=== PATIENT | female | born 1995 | race African-American/Black ===

== ENCOUNTER 2019-10-31 01:45 | Observation (INO) | payer MEDICAID, SELFPAY ==
[2019-10-31] VITALS (14 sets, daily range): BP systolic 106–168; BP diastolic 57–102; PULSE 62–111; RESP 16–28; TEMP 36.4–37.2; O2SAT 97–100; BMI 33.5
--- NOTE | ~2019-10-31 | XR_ITS ---
EXAMINATION: XR chest 1V portable DATE: 10/31/2019 04:58 INDICATION: Diabetic ketoacidosis. Leukocytosis. TECHNIQUE: A single frontal view of the chest was obtained. COMPARISON: Chest single view 01/17/2019, CT abdomen and pelvis 05/19/2018 FINDINGS: The chest demonstrates clear lungs without pneumonia, pleural effusion, or pneumothorax. Th e heart size is normal. IMPRESSION: 1. No acute cardiopulmonary disease. Reviewed, dictated and finalized at location A.
--- NOTE | ~2019-10-31 | CT_ITS ---
EXAMINATION: CT abdomen pelvis wo con DATE: 11/01/2019 14:20 INDICATION: Epigastric abdominal pain. Nausea and vomiting. TECHNIQUE: Computed tomography (CT) of the abdomen and pelvis was performed without intravenous contr ast. Automated exposure control and iterative reconstruction technique were employed. The dose-length product was 467.70 mGy-cm. COMPARISON: CT abdomen and pelvis 05/19/2018 FINDINGS: The visualized portions of the lung bases demonstrate mild atelectasis in left lower lobe. No pleural effusion. The heart size is normal. No pericardial effusion. The liver and spleen are norm al. There are changes of cholecystectomy. The pancreas, adrenal glands, and kidneys are normal. There is no urolithiasis. There are no dilated loops of bowel. The appendix is normal. There are no pathol ogically enlarged lymph nodes. There is no free intraperitoneal fluid. The bones are unremarkable. IMPRESSION: 1. No etiology for the patient's symptoms. Reviewed, dictated and finalized at location A.
--- NOTE | 2019-10-31 01:54 | ED.NAVMDI ---
HPI - Nausea/Vomiting/Diarrhea General Chief complaint: Nausea/Vomiting/Diarrhea Stated complaint: n/v Time Seen by Provider: 10/31/19 01:47 Source: RN notes reviewed History of Present Illness HPI Narrative: Patient presents emergency department from home for nausea and vomiting. Patient states symptoms began earlier today. States she is had numerous episodes of nausea and vomiting. Patient with a history of diabetes and states she is missed her insulin for the past 2 days. Has any fevers or chills chest pain shortness of breath abdominal pain or any other symptoms. Related Data Allergies Allergy/AdvReac Type Severity Reaction Status Date / Time banana Allergy Unknown makes Verified 08/30/18 16:46 mouth swell, couldn't breath Review of Systems Review of Systems: Narrative: Gen.: Denies fevers or chills ENT: Denies congestion Respiratory: Denies shortness of breath or cough CV: Denies chest pain or palpitations GI: See HPI denies burning, urgency, frequency or hematuria Musculoskeletal: Denies back pain or muscle pain Neuro: Denies numbness, tingling, weakness or focal weakness Skin: Denies rash Except as documented, all other systems reviewed and negative [facility] Past Medical History Medical History Asthma Diabetes mellitus Social History Social History Smoking status: Current every day smoker Exam Narrative: Exam Narrative: APPEARANCE: No acute distress, nontoxic, resting in bed EYES: EOMI HEENT: Normocephalic, atraumatic, oromucosa dry RESPIRATORY: No respiratory distress Clear to auscultation bilaterally with no rhonchi wheezing or rales. CARDIOVASCULAR: Regular rate and rhythm without murmurs rubs or gallops. ABDOMINAL: Soft, nontender, nondistended, no rebound or guarding MUSCULOSKELETAl: Moves all extremities. No clubbing, cyanosis or edema. NEURO: Awake and alert. Following commands, speech normal, no focal deficits SKIN:: Warm, dry. No rashes lesions or abrasions PSYCHIATRIC: Normal affect/mood, Course Course Emergency Course: Discussed Dr. Robertson presentation work-up. At this time recommends admission to the ICU with patient on insulin drip Discussed Dr. Massey presentation work-up. Agrees with admission to the ICU Discussed with patient and family results of workup and diagnosis. Discussed need for admission. Patient and family understand and agree to current treatment plan Vital Signs Vital signs: Vital Signs Temperature 97.6 F 10/31/19 01:46 Pulse Rate 70 10/31/19 01:46 Respiratory Rate 18 10/31/19 01:46 Blood Pressure 138/82 10/31/19 01:46 Pulse Oximetry 100 10/31/19 01:46 Temperature 97.6 F 10/31/19 01:46 Pulse Rate 79 10/31/19 04:00 Respiratory Rate 21 H 10/31/19 04:00 Blood Pressure 166/91 H 10/31/19 04:00 Pulse Oximetry 97 10/31/19 04:00 MDM - Nausea/Vomiting/Diarrhea Lab Data Result diagrams: 10/31/19 03:32 10/31/19 03:32 Labs: Lab Results 10/31/19 10/31/19 10/31/19 Range/Units 02:03 02:13 03:32 WBC 12.4 H (4.5-10.0) K/mm3 RBC 4.54 (4.2-5.4) M/mm3 Hgb 11.3 L (12.0-15.0) g/dL Hct 35.0 L (37.0-47.0) % MCV 77.1 L (80-100) fl MCH 24.9 L (26-34) pg MCHC 32.3 (32-36) g/dl RDW 16.0 H (11.5-14.5) % Plt Count 433 H (150-375) k/mm3 MPV 10.1 (7.4-10.4) fl Immature Gran % (Auto) 0.3 (0-0.5) % Neut % (Auto) 89.6 H (45.5-73.1) % Lymph % (Auto) 7.3 L (18.3-44.2) % [place] % (Auto) 2.7 (2.6-8.5) % Eos % (Auto) 0.0 (0-4.4) % Baso % (Auto) 0.1 L (0.2-1.2) % Lymph # (Auto) 0.91 (0.9-3.2) K/mm3 [place] # (Auto) 0.3 (0.1-0.6) K/mm3 Eos # (Auto) 0.0 (0-0.3) K/mm3 Baso # (Auto) 0.0 (0.0-0.1) K/mm3 Abs Immat Gran (auto) 0.04 H (0.00-0.031) K/mm3 Absolute Neuts (auto) 11.1 H (1.3-6.7) K/mm3 Abs
[2019-10-31 02:05] LABS: Glucose Point of Care 323 (65-105)
[2019-10-31] MEDS: ONDANSETRON INJ 4 MG/2 ML VIAL IV PUSH (02:14)
[2019-10-31] MEDS: SODIUM CHLORIDE 0.9% IV 1,000 ML 999 ML IV CONT ×3 (02:14→04:29)
--- NOTE | 2019-10-31 02:54 | PC.NURSE ---
Called phlebotomy about drawing pts blood
[2019-10-31 03:39] LABS: Basophils Percent Auto 0.1 % (0.2-1.2); Hemoglobin 11.3 g/dL (12.0-15.0); Immature Granulocyte Absolute 0.04 K/mm3 (0.00-0.031); Immature Granulocyte Percent A 0.3 % (0-0.5); Lymphocytes Absolute Auto 0.91 K/mm3 (0.9-3.2); Lymphocytes Percent Auto 7.3 % (18.3-44.2); Mean Corpuscular HGB Conc 32.3 g/dl (32-36); Mean Corpuscular Hemoglobin 24.9 pg (26-34); Mean Corpuscular Volume 77.1 fl (80-100); Mean Platelet Volume 10.1 fl (7.4-10.4); Monocytes Absolute Auto 0.3 K/mm3 (0.1-0.6); Monocytes Percent Auto 2.7 % (2.6-8.5); Neutrophils Absolute Auto 11.1 K/mm3 (1.3-6.7); Neutrophils Percent Auto 89.6 % (45.5-73.1); Platelet Count Result 433 k/mm3 (150-375); Red Blood Count 4.54 M/mm3 (4.2-5.4); White Blood Count 12.4 K/mm3 (4.5-10.0)
[2019-10-31] MEDS: PROMETHAZINE HCL 25 MG/ML AMPUL 12.5 MG IV PUSH (03:40)
[2019-10-31 03:43] LABS: Add Urine Microscopic? YES; Appearance Urine Clear (Clear); Bilirubin Urine Negative (Negative); Blood Urine Negative (Negative); Glucose Urine UA 3+ mg/dL (Negative); Ketones Urine 2+ mg/dL (Negative); Leukocyte Esterase Ur Negative LEU/UL (Negative); Nitrate Urine Negative (Negative); Protein Urine 1+ mg/dL (Negative); RBC Urine 0-2 /hpf (0-2); Squamous Epithelial Cell Urine Rare /hpf (Few); Urobilinogen Urine Negative mg/dL (<2.0); WBC Urine 0-3 /hpf
[2019-10-31 03:44] LABS: Color Urine Light Yellow (Yellow); Specific Grav Ur 1.032 (1.001-1.035)
--- NOTE | 2019-10-31 03:44 | PC.NURSE ---
pt c/o of increasing nausea, MD notified, meds given.
[2019-10-31 03:52] LABS: Alanine Aminotransferase 15 U/L (4-35); Albumin Level 4.5 g/dL (3.5-5.1); Alkaline Phosphatase 102 U/L (38-126); Aspartate Amino Transferase 23 U/L (14-36); Bilirubin,Total 0.5 mg/dL (0.2-1.3); Blood Urea Nitrogen 9 mg/dL (7-17); Calcium 9.3 mg/dL (8.4-10.2); Carbon Dioxide 19 mmol/L (22-30); Chloride 101 mmol/L (98-107); Estimated CRCL calculation 148 ml/min; Estimated Glomerular Filt Rate > 60; Glucose 300 mg/dL (65-105); Lipase 113 U/L (23-300); Magnesium 1.5 mg/dL (1.6-2.3); Phosphorus 3.8 mg/dL (2.5-4.5); Potassium 3.6 mmol/L (3.4-5.0); Sodium 137 mmol/L (137-145)
[2019-10-31 03:55] LABS: Beta-Hydroxybutyrate/Acetoacetate 2.35 mmol/L (0.02-0.27)
[2019-10-31 04:04] LABS: Alveolar/Arterial O2 Gradient 31.7 mmHg; Base Excess ABG -5.6 mEq/l (+/-2.0); Device ROOM AIR; Fractional Inspired Oxygen 21 %; HCO3 ABG 18.4 mEq/l (22.0-26.0); Modified Allen's Test Pass; Oxygen Content ABG 15.1 %vol (16.0-22.0); Oxyhemoglobin 93.9 % THb (90.0-100.0); PCO2 ABG 31.2 mmHg (35.0-45.0); PO2 ABG 80.7 mmHg (80.0-100.0); PO2 FiO2 Ratio Arterial Blood 3.84 %; Site Drawn RIGHT RADIAL; Total Hemoglobin 11.4 g/dL (12.0-18.0); pH ABG 7.388 (7.350-7.450)
--- NOTE | 2019-10-31 04:16 | ECG_ITS ---
Measurements Intervals [place] Rate: 82 P: 67 CO: 141 QRS: 75 QRSD: 82 T: 47 QT: 408 QTc: 477 Interpretive Statements SINUS RHYTHM WITH MARKED SINUS ARRHYTHMIA BASELINE ARTIFACT- I, II, V3 BORDERLINE ECG Electronically Signed On 10-31-2019 7:37:57 CDT by Jacob Nicholas D.O.
[2019-10-31] MEDS: MAGNESIUM SULF 2 GM/WATER 50ML 2 GM/50 ML BAG IVPB (04:28)
--- NOTE | 2019-10-31 04:35 | PM.IMHP ---
H&P: HPI History of Present Illness Chief complaint: Nausea and vomiting+ Narrative: This is a 24 year old Diabetic female who presented to the hospital with nausea and vomiting since yesterday. The patient reports running out of her insulin two days ago. She denies any fevers, chills, cough, shortness of breath, chest pain, abdominal pain, dysuria, hematuria, diarrhea or rectal bleeding. The patient was evaluated in the ER this morning and found to be in mild DKA with an elevated anion gap, hyperglycemia, and postive serum ketones. She has been started on IV insulin, given 2 liters of NS, and [employer], Dr. Massey has been consulted. The patient has no other complaints. Review of Systems Review of Systems: All systems reviewed & are unremarkable except as noted in HPI and below PMFSH Past Medical History Medical History Asthma Diabetes mellitus Social History Social History Smoking status: Never smoker Alcohol intake: current Drinks per week: 4 Substance use: current Substance use type: marijuana Gender identity (if verbalized by the patient): Female Sexual Orientation (if Verbalized by the Patient): Straight or Heterosexual Spiritual care concerns: No Comments Past Surgical and Family medical history is reviewed and unremarkable. Meds Home Medications and Allergies Home Medications Medication Instructions Recorded Confirmed Type insulin lispro [Humalog U-100 6 unit SUBCUT TIDWMEAL 10/31/19 10/31/19 History Insulin] Lantus U-100 Insulin 30 unit SUBCUT HS #0 11/03/19 10/31/19 Rx Allergies Allergy/AdvReac Type Severity Reaction Status Date / Time banana Allergy Unknown makes Verified 08/30/18 16:46 mouth swell, couldn't breath Vital Signs Vital Signs - 24 hr 10/31/19 01:46 10/31/19 04:00 Temperature 36.4 C Pulse Rate 70 79 Respiratory Rate 18 21 H Blood Pressure 138/82 166/91 H Pulse Oximetry 100 97 Exam Const: General: cooperative, no acute distress, alert, awake and other (dehydrated+ ) Nutritional Appearance: well nourished Orientation/consciousness: patient oriented x3 HENMT: Head: normal to inspection General nose exam: Normal external nose present Face and sinus: normal facial exam Mouth: Yes Normal oral and palatal mucosa present and Yes dry mucous membranes Eyes: Pupils: Equal, round and reactive pupils present EOM: EOMs intact bilaterally Neck: Neck: supple and no JVD Thyroid: thyroid normal Lymphatic: lymphadenopathy not noted Resp: Effort & Inspection: normal respiratory effort Auscultation: clear to auscultation bilaterally Cardio: Rate: regular rate Rhythm: abnormal rhythm irregularly irregular Heart sounds: no murmurs GI: Inspection: normal to inspection Auscultation: normal bowel sounds Skin: General skin exam: normal color and no rashes or lesions noted Neuro: General: patient oriented x3 Cranial nerves: Yes CN's II-XII intact bilaterally and Yes Equal, round and reactive pupils present Speech: normal speech Motor exam (neuro): 5/5 motor strength present throughout Sensory Exam: normal sensation Extrem: General: normal to inspection and no edema Psych: Mental Status: mental status grossly normal Affect: normal affect H&P: Results Labs Labs: Short CBC 10/31/19 Range/Units 03:32 WBC 12.4 H (4.5-10.0) K/mm3 Hgb 11.3 L (12.0-15.0) g/dL Hct 35.0 L (37.0-47.0) % Plt Count 433 H (150-375) k/mm3 BMP 10/31/19 03:32 Sodium 137 Potassium 3.6 Chloride 101 Carbon Dioxide 19 L BUN 9 Creatinine 0.50 L Glucose 300 H Calcium 9.3 Liver Function 10/31/19 Range/Units 03:32 Total Bilirubin 0.5 (0.2-1.3) mg/dL AST 23 (14-36) U/L ALT 15 (4-35) U/L Alkaline Phosphatase 102 (38-126) U/L Albumin 4.5 (3.5-5.1) g/dL Urine 10/31/19
[2019-10-31 04:58] LABS: Glucose Point of Care 339 (65-105)
--- NOTE | 2019-10-31 05:21 | ADMIMU ---
This patient, Marianne Fofana, was admitted to ICU status, and placed in Intensive Care Unit-9 on 10/31/19 at 0500. Patient/family oriented to hospital policies and general routines including ID bracelet, bed and alarms, visiting hours, pain management, procedures, bathroom and other care routines, personal items, smoking policy, room service/diet, and visiting hours. Pt refuses to have valuables verified, states she knows what is in her purse and asks that we not go through it. Presence of anything but shirt, shoes, and purse NOT verified. Information on how to activate the Rapid Response Team has been discussed. Patient/Family are encouraged to report perceived risks to care and to ask questions if they do not understand what they are told or what they should do.
[2019-10-31] MEDS: INSULIN HUMAN REGULAR (*BKC) 100 UNITS in SODIUM CHLORIDE 0.9% IV 99 ML IV CONT (06:10)
[2019-10-31] MEDS: SODIUM CHLORIDE 0.9% IV 1,000 ML 150 ML IV CONT (06:13)
[2019-10-31 06:17] LABS: Glucose Point of Care 282 (65-105)
[2019-10-31 07:44] LABS: Blood Urea Nitrogen 9 mg/dL (7-17); Calcium 8.4 mg/dL (8.4-10.2); Carbon Dioxide 18 mmol/L (22-30); Chloride 105 mmol/L (98-107); Estimated CRCL calculation 149 ml/min; Estimated Glomerular Filt Rate > 60; Glucose 274 mg/dL (65-105); Potassium 3.5 mmol/L (3.4-5.0); Sodium 134 mmol/L (137-145)
[2019-10-31 07:50] LABS: Hemoglobin A1C 11.6 % (<5.7)
[2019-10-31 08:31] LABS: Glucose Point of Care 216 (65-105)
[2019-10-31 08:31] LABS: Glucose Point of Care 270 (65-105)
--- NOTE | 2019-10-31 09:32 | WPDCNINT ---
Assessment and Plan Assessment and plan (1) DKA (diabetic ketoacidoses): Qualifiers: Diabetes mellitus complication detail: without coma Diabetes mellitus type: type 1 Qualified Code(s): E10.10 - Type 1 diabetes mellitus with ketoacidosis without coma Code(s): E11.10 - Type 2 diabetes mellitus with ketoacidosis without coma Status: Acute Assessment and Plan: Patient with known type 1 diabetes on insulin at home. Presented with nausea, vomiting, diarrhea x1 day. She has been out of her insulin for the last 2 days prior -to admission. -patient started on insulin infusion of to be given IV fluids -1 L IV fluid bolus given this morning -will transition patient to long-acting insulin sliding scale insulin once anion gap closes -hemoglobin A1c 11.6 this admission (2) Nausea and vomiting: Qualifiers: Vomiting Intractability: non-intractable Vomiting type: unspecified Qualified Code(s): R11.2 - Nausea with vomiting, unspecified Code(s): R11.2 - Nausea with vomiting, unspecified Status: Acute Assessment and Plan: Nausea and vomiting likely related to DKA -has resolved -Continue monitor (3) Hypomagnesemia: Code(s): E83.42 - Hypomagnesemia Status: Acute Assessment and Plan: Magnesium was repleted (4) Asthma: Qualifiers: Asthma severity: unspecified severity Asthma persistence: unspecified Asthma complication type: unspecified Qualified Code(s): J45.909 - Unspecified asthma, uncomplicated Code(s): J45.909 - Unspecified asthma, uncomplicated Status: Chronic Assessment and Plan: Bronchodilators p.r.n. (5) Leukocytosis: Qualifiers: Leukocytosis type: unspecified Qualified Code(s): D72.829 - Elevated white blood cell count, unspecified Code(s): D72.829 - Elevated white blood cell count, unspecified Status: Acute Assessment and Plan: Likely related to stress from DKA -UA was unremarkable -chest x-ray with no acute cardiopulmonary disease Additional Plan Discussed with patient updated her with her condition and plan of care. Patient has been admitted to the ICU previously with DKA and is aware of the treatment plan Code status: Full code Critical care time spent: 38 minutes Due to a high probability of clinically significant, life threatening deterioration, the patient required my highest level of preparedness to intervene emergently and I personally spent this critical care time directly and personally managing the patient. This critical care time included obtaining a history; examining the patient; pulse oximetry; ordering and review of studies; arranging urgent treatment with development of a management plan; evaluation of patient's response to treatment; frequent reassessment; and discussions with other providers. It was exclusive of separately billable procedures and treating other patients and teaching time. Please see Assessment and Plan section and the rest of the note for further information on patient assessment and treatment [employer] Consult Note Consult date: 10/31/19 Time Seen: 07:11 Reason for consult: Diabetic ketoacidosis, nausea, vomiting, diarrhea HPI: Marianne Fofana is a 24 year old female with history asthma, insulin-dependent diabetes presented to the ED in the early hours of 10/31/2019 with complains of nausea, vomiting, diarrhea x1 day. Patient stated that she ran out of insulin 2 days prior to admission. In the ER patient was found to be in DKA with elevated anion gap, hyperglycemia, elevated beta hydroxybutyrate and positive serum ketones. Patient was given 2 L IV fluid bolus in the ED and started on insulin infusion per DKA protocol and transferred to the ICU for further management Patient seen examined this morning. Patient awake, alert, oriented. Patient denies any nausea, vomiting, abdominal pain. Patient is tired and sleepy. Patient received 2 L of IV fluids
[2019-10-31] MEDS: LACTATED RINGERS 1,000 ML 999 ML IV CONT (09:42)
[2019-10-31 09:50] LABS: Glucose Point of Care 192 (65-105)
[2019-10-31 10:47] LABS: Glucose Point of Care 105 (65-105)
[2019-10-31] MEDS: KCL 20 MEQ/D5/0.45% SOD CHL 1,000 ML 150 ML IV CONT (10:49)
[2019-10-31 11:44] LABS: Glucose Point of Care 143 (65-105)
[2019-10-31 12:15] LABS: Blood Urea Nitrogen 9 mg/dL (7-17); Calcium 7.9 mg/dL (8.4-10.2); Carbon Dioxide 16 mmol/L (22-30); Chloride 110 mmol/L (98-107); Estimated CRCL calculation 149 ml/min; Estimated Glomerular Filt Rate > 60; Glucose 134 mg/dL (65-105); Potassium 3.6 mmol/L (3.4-5.0); Sodium 135 mmol/L (137-145)
[2019-10-31] MEDS: INSULIN GLARGINE (*BKC) 100 UNITS/ML 26 UNITS SUB-Q (13:14)
[2019-10-31 15:42] LABS: Glucose Point of Care 196 (65-105)
[2019-10-31] MEDS: INSULIN ASPART (*BKC) 100 UNITS/ML 6 UNITS SUB-Q (15:43)
--- NOTE | 2019-10-31 18:36 | PM.IMPN ---
Progress Note: A&P Assessment and Plan (1) DKA (diabetic ketoacidoses): Qualifiers: Diabetes mellitus complication detail: without coma Diabetes mellitus type: type 1 Qualified Code(s): E10.10 - Type 1 diabetes mellitus with ketoacidosis without coma Code(s): E11.10 - Type 2 diabetes mellitus with ketoacidosis without coma Status: Acute Assessment and Plan: Secondary to nonadherence to medical therapy. Patient was admitted to the ICU and started on DKA protocol. Anion gap has closed. She has been transitioned to subcu insulin. Patient still with metabolic acidosis possibly related to her GI symptoms. Educated about the benefits of compliance. (2) Diabetes mellitus: Code(s): E11.9 - Type 2 diabetes mellitus without complications Status: Acute Assessment and Plan: A1c 11.6. The patient was educated about the benefits of being compliant with monitoring. She has been restarted on her Lantus and Humalog. Continue to monitor glucose and adjust medications accordingly. (3) Hypomagnesemia: Code(s): E83.42 - Hypomagnesemia Status: Acute Assessment and Plan: Magnesium slightly low on admission. Magnesium has been replaced. Repeat level in the morning. (4) Nausea and vomiting: Qualifiers: Vomiting Intractability: non-intractable Vomiting type: unspecified Qualified Code(s): R11.2 - Nausea with vomiting, unspecified Code(s): R11.2 - Nausea with vomiting, unspecified Status: Acute Assessment and Plan: Likely secondary to acute metabolic acidosis from DKA. Symptoms have resolved. Tolerating oral intake. Continue to follow. (5) Leukocytosis: Qualifiers: Leukocytosis type: unspecified Qualified Code(s): D72.829 - Elevated white blood cell count, unspecified Code(s): D72.829 - Elevated white blood cell count, unspecified Status: Acute Assessment and Plan: Likely secondary to acute DKA. Chest x-ray clear. UA not consistent with UTI. Repeat white count in the morning. (6) Normocytic anemia: Code(s): D64.9 - Anemia, unspecified Status: Chronic Assessment and Plan: Hemoglobin 11.3. Similar values when compared to blood work from December. Continue to monitor. (7) Asthma: Qualifiers: Asthma complication type: unspecified Asthma persistence: unspecified Asthma severity: unspecified severity Qualified Code(s): J45.909 - Unspecified asthma, uncomplicated Code(s): J45.909 - Unspecified asthma, uncomplicated Status: Chronic Assessment and Plan: Lungs are clear. Continue to monitor. Subjective Date/time seen: 10/31/19 18:36 Interval history: 24yo female with DM here for n/v and found to have DKA. Date of service 10/31/2019: No further nausea or vomiting. No abdominal pain. No chest pain. She does not check her sugars at home regularly. Eating normally here. Denies any numbness or tingling in her feet. Exam Narrative: Exam Narrative: AF 98.6 130/81 98 16 99% ra Gen - NARD Chest - CTA bilaterally, nml RR CV - RRR S1/S2; telemetry showing no significant dysrhythmia Abd - Soft, NT/ND, Positive BS Ext - No pedal edema. 2+ DP pulses bilaterally. Psych -subdued. Odd affect. Skin -mildly diaphoretic Objective Data Vital Signs Vital Signs: Vital Signs - 24 hr 10/31/19 01:46 10/31/19 04:00 10/31/19 05:19 Temperature 97.6 F 97.8 F Pulse Rate 70 79 62 Respiratory Rate 18 21 H 18 Blood Pressure 138/82 166/91 H 168/91 H Pulse Oximetry 100 97 99 10/31/19 05:28 10/31/19 05:33 10/31/19 06:00 Temperature 98.6 F Pulse Rate 70 72 94 Respiratory Rate 20 28 H 24 H Blood Pressure 151/102 H 114/64 Pulse Oximetry 99 99 100 10/31/19 08:00 10/31/19 10:00 10/31/19 12:00 Temperature 98.4 F 98.8 F Pulse Rate 111 H 100 97 Respiratory Rate 16 16 16 Blood Pressure 109/57 L 106/57 L 118/70 Pulse Oximetry
--- NOTE | 2019-10-31 21:19 | PC.NURSE ---
This patient, Marianne Fofana, was transferred to [[id number] ] on 10/31/19 at 2119. Personal belongings sent with patient. Belongings list checked and signed with receiving [ ]. Report given to [Abigail VILLASENOR ]. Appropriate documentation sent with patient.
[2019-10-31 22:20] LABS: Glucose Point of Care 307 (65-105)
--- NOTE | 2019-10-31 22:41 | PC.NURSE ---
This patient, Marianne Fofana, was received from [ICU-9] on 10/31/19 at 2114. Personal belongings list checked and signed. Patient/family oriented to unit policies and routines
[2019-11-01 05:55] VITALS: BP 142/96; PULSE 88; RESP 18; TEMP 36.6; O2SAT 100
[2019-11-01] MEDS: ONDANSETRON INJ 4 MG/2 ML VIAL IV PUSH ×2 (06:34→20:22)
[2019-11-01 08:17] LABS: Glucose Point of Care 257 (65-105)
[2019-11-01 08:37] LABS: Glucose Point of Care 295 (65-105)
[2019-11-01] MEDS: INSULIN ASPART (*BKC) 100 UNITS/ML 6 UNITS SUB-Q ×3 (08:43→18:20)
[2019-11-01] MEDS: INSULIN GLARGINE (*BKC) 100 UNITS/ML 26 UNITS SUB-Q (08:44)
[2019-11-01] MEDS: PROMETHAZINE HCL 25 MG/ML AMPUL IM (09:04)
[2019-11-01 09:18] LABS: Basophils Percent Auto 0.2 % (0.2-1.2); Eosinophils Percent Auto 0.2 % (0-4.4); Hemoglobin 10.7 g/dL (12.0-15.0); Immature Granulocyte Absolute 0.06 K/mm3 (0.00-0.031); Immature Granulocyte Percent A 0.5 % (0-0.5); Lymphocytes Absolute Auto 1.76 K/mm3 (0.9-3.2); Lymphocytes Percent Auto 14.1 % (18.3-44.2); Mean Corpuscular HGB Conc 32.4 g/dl (32-36); Mean Corpuscular Hemoglobin 24.8 pg (26-34); Mean Corpuscular Volume 76.6 fl (80-100); Mean Platelet Volume 10.1 fl (7.4-10.4); Monocytes Absolute Auto 0.5 K/mm3 (0.1-0.6); Monocytes Percent Auto 4.2 % (2.6-8.5); Neutrophils Absolute Auto 10.1 K/mm3 (1.3-6.7); Neutrophils Percent Auto 80.8 % (45.5-73.1); Platelet Count Result 396 k/mm3 (150-375); Red Blood Count 4.31 M/mm3 (4.2-5.4); Red Cell Distribution Width 15.8 % (11.5-14.5); White Blood Count 12.5 K/mm3 (4.5-10.0)
[2019-11-01 09:30] LABS: Blood Urea Nitrogen 9 mg/dL (7-17); Calcium 8.9 mg/dL (8.4-10.2); Carbon Dioxide 20 mmol/L (22-30); Chloride 102 mmol/L (98-107); Estimated CRCL calculation 152 ml/min; Estimated Glomerular Filt Rate > 60; Glucose 309 mg/dL (65-105); Magnesium 1.6 mg/dL (1.6-2.3); Phosphorus 2.6 mg/dL (2.5-4.5); Potassium 3.6 mmol/L (3.4-5.0); Sodium 133 mmol/L (137-145)
[2019-11-01 11:46] LABS: Glucose Point of Care 254 (65-105)
--- NOTE | 2019-11-01 12:15 | PM.IMPN ---
Progress Note: A&P Assessment and Plan (1) DKA (diabetic ketoacidoses): Qualifiers: Diabetes mellitus complication detail: without coma Diabetes mellitus type: type 1 Qualified Code(s): E10.10 - Type 1 diabetes mellitus with ketoacidosis without coma Code(s): E11.10 - Type 2 diabetes mellitus with ketoacidosis without coma Status: Acute Assessment and Plan: Secondary to nonadherence to medical therapy. Patient was admitted to the ICU and started on DKA protocol. Anion gap has closed. She has been transitioned to subcu insulin. Patient still with metabolic acidosis but improved today. Educated about the benefits of compliance. (2) Diabetes mellitus: Code(s): E11.9 - Type 2 diabetes mellitus without complications Status: Acute Assessment and Plan: A1c 11.6. The patient was educated about the benefits of being compliant with monitoring. She has been restarted on her Lantus and Humalog. Will advance Lantus today. Continue to monitor glucose and adjust medications accordingly. (3) Hypomagnesemia: Code(s): E83.42 - Hypomagnesemia Status: Acute Assessment and Plan: Magnesium slightly low on admission. Magnesium was replaced. Repeat level 1.6. Replace Mag again. (4) Nausea and vomiting: Qualifiers: Vomiting Intractability: non-intractable Vomiting type: unspecified Qualified Code(s): R11.2 - Nausea with vomiting, unspecified Code(s): R11.2 - Nausea with vomiting, unspecified Status: Acute Assessment and Plan: Likely secondary to acute metabolic acidosis from DKA and symptoms have resolved. This morning, patient had recurrent nausea and vomiting. Consider gastroparesis or gastroenteritis or psychogenic. Bicarb is better and no AG so doubt DKA. WBC still elevated but only mildly so. Will check CT A/P. Check lipase and LFTs. Add PPI. IV fluids. Clear liquids. (5) Leukocytosis: Qualifiers: Leukocytosis type: unspecified Qualified Code(s): D72.829 - Elevated white blood cell count, unspecified Code(s): D72.829 - Elevated white blood cell count, unspecified Status: Acute Assessment and Plan: Likely secondary to acute DKA. Chest x-ray clear. UA not consistent with UTI. Repeat white count essentially unchanged. Could be stress response. As above. (6) Normocytic anemia: Code(s): D64.9 - Anemia, unspecified Status: Chronic Assessment and Plan: Hemoglobin 10-11 range. Similar values when compared to blood work from December. Continue to monitor. (7) Asthma: Qualifiers: Asthma severity: unspecified severity Asthma persistence: unspecified Asthma complication type: unspecified Qualified Code(s): J45.909 - Unspecified asthma, uncomplicated Code(s): J45.909 - Unspecified asthma, uncomplicated Status: Chronic Assessment and Plan: Lungs remain clear. Continue to monitor. Subjective Date/time seen: 11/01/19 12:15 Interval history: 24yo female with DM here for n/v and found to have DKA. Date of service 11/01/2019: Patietn awoke thsi morning and developed recurrent nausea or vomiting. No diarrhea. No shortness of breath. She is having abdominal pain. She has not been having abdominal pain with eating or after eating prior to this admission. She has early satiety that comes and goes. She cannot provide details on how often this happens. Exam Narrative: Exam Narrative: AF 98.6 142/96 88 18 100% Gen - NARD lying flat in bed. In my presence, patient drinks water with a short time later having episode of nausea and vomiting of clear emesis. Some indication of self induced emesis. Chest - CTA bilaterally, nml RR CV - RRR S1/S2 Abd - Soft, nondistended. Some guarding. Hypoactive bowel sounds Ext - No pedal edema. 2+ DP pulses bilaterally. Psych - odd affect Skin -mildly diaphoretic Objective Data
[2019-11-01 13:14] LABS: Alanine Aminotransferase 12 U/L (4-35); Alkaline Phosphatase 79 U/L (38-126); Aspartate Amino Transferase 21 U/L (14-36); Bilirubin,Total 0.3 mg/dL (0.2-1.3); Lipase 179 U/L (23-300)
[2019-11-01 14:00] VITALS: PULSE 63; RESP 18; TEMP 36.1; O2SAT 100
[2019-11-01] MEDS: SODIUM CHLORIDE 0.9% IV 1,000 ML 100 ML IV CONT (15:41)
[2019-11-01] MEDS: MAGNESIUM SULF 2 GM/WATER 50ML 2 GM/50 ML BAG IVPB (15:46)
[2019-11-01] MEDS: PANTOPRAZOLE SODIUM IV 40 MG VIAL IV PUSH ×2 (15:50→20:22)
[2019-11-01 16:00] VITALS: BP 181/93
[2019-11-01 18:14] LABS: Glucose Point of Care 164 (65-105)
[2019-11-01 20:27] LABS: Glucose Point of Care 109 (65-105)
[2019-11-01 22:00] VITALS: BP 137/101; PULSE 73; RESP 18; TEMP 36.7; O2SAT 100
[2019-11-01 22:41] VITALS: BP 118/76
[2019-11-02] MEDS: SODIUM CHLORIDE 0.9% IV 1,000 ML 100 ML IV CONT (04:19)
[2019-11-02 06:00] VITALS: BP 115/67; PULSE 85; RESP 18; TEMP 36.9; O2SAT 100
[2019-11-02 06:18] LABS: Basophils Percent Auto 0.2 % (0.2-1.2); Eosinophils Percent Auto 0.2 % (0-4.4); Hematocrit 31.6 % (37.0-47.0); Hemoglobin 10.3 g/dL (12.0-15.0); Immature Granulocyte Absolute 0.02 K/mm3 (0.00-0.031); Immature Granulocyte Percent A 0.2 % (0-0.5); Lymphocytes Absolute Auto 2.42 K/mm3 (0.9-3.2); Lymphocytes Percent Auto 24.8 % (18.3-44.2); Mean Corpuscular HGB Conc 32.6 g/dl (32-36); Mean Corpuscular Hemoglobin 24.9 pg (26-34); Mean Corpuscular Volume 76.3 fl (80-100); Monocytes Absolute Auto 0.9 K/mm3 (0.1-0.6); Monocytes Percent Auto 8.8 % (2.6-8.5); Neutrophils Absolute Auto 6.4 K/mm3 (1.3-6.7); Neutrophils Percent Auto 65.8 % (45.5-73.1); Platelet Count Result 405 k/mm3 (150-375); Red Blood Count 4.14 M/mm3 (4.2-5.4); Red Cell Distribution Width 15.8 % (11.5-14.5); White Blood Count 9.7 K/mm3 (4.5-10.0)
[2019-11-02 06:44] LABS: Alanine Aminotransferase 9 U/L (4-35); Albumin Level 3.8 g/dL (3.5-5.1); Alkaline Phosphatase 68 U/L (38-126); Aspartate Amino Transferase 16 U/L (14-36); Bilirubin,Total 0.4 mg/dL (0.2-1.3); Blood Urea Nitrogen 5 mg/dL (7-17); Calcium 8.7 mg/dL (8.4-10.2); Carbon Dioxide 24 mmol/L (22-30); Chloride 102 mmol/L (98-107); Estimated CRCL calculation 129 ml/min; Estimated Glomerular Filt Rate > 60; Glucose 144 mg/dL (65-105); Potassium 2.7 mmol/L (3.4-5.0); Sodium 134 mmol/L (137-145)
[2019-11-02] MEDS: ONDANSETRON INJ 4 MG/2 ML VIAL IV PUSH ×2 (07:59→22:00)
[2019-11-02 09:09] LABS: Glucose Point of Care 143 (65-105)
[2019-11-02] MEDS: INSULIN GLARGINE (*BKC) 100 UNITS/ML 35 UNITS SUB-Q (09:14)
[2019-11-02] MEDS: INSULIN ASPART (*BKC) 100 UNITS/ML 6 UNITS SUB-Q ×3 (09:14→17:56)
[2019-11-02] MEDS: PANTOPRAZOLE SODIUM IV 40 MG VIAL IV PUSH ×2 (09:16→21:27)
[2019-11-02 14:00] VITALS: BP 159/98; PULSE 80; RESP 22; TEMP 37.2; O2SAT 100
[2019-11-02 16:44] LABS: Glucose Point of Care 153 (65-105)
--- NOTE | 2019-11-02 16:51 | PM.IMPN ---
Progress Note: A&P Assessment and Plan (1) DKA (diabetic ketoacidoses): Qualifiers: Diabetes mellitus complication detail: without coma Diabetes mellitus type: type 1 Qualified Code(s): E10.10 - Type 1 diabetes mellitus with ketoacidosis without coma Code(s): E11.10 - Type 2 diabetes mellitus with ketoacidosis without coma Status: Acute Assessment and Plan: Secondary to nonadherence to medical therapy. Patient was admitted to the ICU and started on DKA protocol. Anion gap has closed. She has been transitioned to subcu insulin. Patient's metabolic acidosis eventually resolved. Educated about the benefits of compliance. (2) Diabetes mellitus: Code(s): E11.9 - Type 2 diabetes mellitus without complications Status: Acute Assessment and Plan: A1c 11.6. The patient was educated about the benefits of being compliant with monitoring. She has been restarted on her Lantus and Humalog. Continue to monitor glucose and adjust medications accordingly. (3) Hypomagnesemia: Code(s): E83.42 - Hypomagnesemia Status: Acute Assessment and Plan: Magnesium slightly low on admission. Magnesium was replaced. Repeat level 2 (4) Nausea and vomiting: Qualifiers: Vomiting Intractability: non-intractable Vomiting type: unspecified Qualified Code(s): R11.2 - Nausea with vomiting, unspecified Code(s): R11.2 - Nausea with vomiting, unspecified Status: Acute Assessment and Plan: Likely secondary to acute metabolic acidosis from DKA and symptoms have resolved. Yesterday morning, patient had recurrent nausea and vomiting. CT the abdomen and pelvis showed no acute findings. Lipase was normal. LFTs were normal. Symptoms are improved today but still within nausea and vomiting. Continue the Protonix. Add Reglan. (5) Leukocytosis: Qualifiers: Leukocytosis type: unspecified Qualified Code(s): D72.829 - Elevated white blood cell count, unspecified Code(s): D72.829 - Elevated white blood cell count, unspecified Status: Acute Assessment and Plan: Likely secondary to acute DKA. Chest x-ray clear. UA not consistent with UTI. Could be stress response. Repeat white count normal now. Follow periodically. (6) Normocytic anemia: Code(s): D64.9 - Anemia, unspecified Status: Chronic Assessment and Plan: Hemoglobin 10-11 range and stable. Similar values when compared to blood work from December. Continue to monitor. (7) Asthma: Qualifiers: Asthma severity: unspecified severity Asthma persistence: unspecified Asthma complication type: unspecified Qualified Code(s): J45.909 - Unspecified asthma, uncomplicated Code(s): J45.909 - Unspecified asthma, uncomplicated Status: Chronic Assessment and Plan: Lungs remain clear. Continue to monitor. Subjective Date/time seen: 11/02/19 16:51 Interval history: 24yo female with DM here for n/v and found to have DKA. Date of service 11/02/2019: Patient toelrating clear liquids and feels much better. No further nausea. She slept well. Diet was advanced and she had episode again of n/v. Exam Narrative: Exam Narrative: AF 98.9 159/98 80 22 100% Gen - NARD Chest - CTA bilaterally, nml RR CV - RRR S1/S2 Abd - Soft, NT/ND, +BS Ext - No pedal edema. 2+ DP pulses bilaterally. Psych - odd affect Skin - warm and dry Objective Data Vital Signs Vital Signs: Vital Signs - 24 hr 11/01/19 22:00 11/01/19 22:41 11/02/19 06:00 Temperature 98.1 F 98.4 F Pulse Rate 73 85 Respiratory Rate 18 18 Blood Pressure 137/101 H 118/76 115/67 Pulse Oximetry 100 100 11/02/19 14:00 Temperature 98.9 F Pulse Rate 80 Respiratory Rate 22 H Blood Pressure 159/98 H Pulse Oximetry 100 Intake/Output Intake/Output: Intake & Output 10/30/19 10/31/19 11/01/19 11/02/19 23:59 23:59 23:59 23:59 Inta
[2019-11-02] MEDS: METOCLOPRAMIDE HCL INJ 10 MG/2 ML VIAL 5 MG IV PUSH ×2 (17:58→23:33)
[2019-11-02 18:09] LABS: Glucose Point of Care 127 (65-105)
[2019-11-02 21:34] LABS: Glucose Point of Care 89 (65-105)
[2019-11-02 22:00] VITALS: BP 122/75; PULSE 70; RESP 16; TEMP 36.4; O2SAT 100
--- NOTE | 2019-11-02 22:58 | ECG_ITS ---
Measurements Intervals [place] Rate: 75 P: 62 RI: 112 QRS: 62 QRSD: 88 T: 39 QT: 404 QTc: 453 Interpretive Statements SINUS RHYTHM WITH MARKED SINUS ARRHYTHMIA WITH SHORT RI INTERVAL BORDERLINE ST-T WAVE ABNORMALITY- INFERIOR LEADS BORDERLINE ECG Electronically Signed On 11-03-2019 8:04:32 CDT by Jacob Nicholas D.O.
[2019-11-02 23:06] VITALS: BP 178/112; PULSE 105; RESP 24; O2SAT 100
[2019-11-02] MEDS: PROMETHAZINE HCL 25 MG/ML AMPUL IM (23:33)
[2019-11-02 23:54] LABS: Glucose Point of Care 93 (65-105)
[2019-11-03 02:16] VITALS: BP 156/100; PULSE 94; RESP 18; TEMP 36.8; O2SAT 100
[2019-11-03] MEDS: SODIUM CHLORIDE 0.9% IV 1,000 ML 100 ML IV CONT (05:59)
[2019-11-03 06:00] VITALS: BP 108/54; PULSE 78; RESP 16; TEMP 36.1; O2SAT 100
[2019-11-03] MEDS: METOCLOPRAMIDE HCL INJ 10 MG/2 ML VIAL 5 MG IV PUSH ×2 (06:06→12:30)
[2019-11-03 06:52] LABS: Blood Urea Nitrogen 5 mg/dL (7-17); Calcium 8.7 mg/dL (8.4-10.2); Carbon Dioxide 24 mmol/L (22-30); Chloride 101 mmol/L (98-107); Estimated CRCL calculation 129 ml/min; Estimated Glomerular Filt Rate > 60; Glucose 140 mg/dL (65-105); Potassium 2.7 mmol/L (3.4-5.0); Sodium 134 mmol/L (137-145)
[2019-11-03 08:33] LABS: Glucose Point of Care 156 (65-105)
[2019-11-03] MEDS: PANTOPRAZOLE SODIUM IV 40 MG VIAL IV PUSH (09:01)
[2019-11-03] MEDS: INSULIN ASPART (*BKC) 100 UNITS/ML 6 UNITS SUB-Q ×2 (09:03→12:30)
[2019-11-03] MEDS: INSULIN GLARGINE (*BKC) 100 UNITS/ML 35 UNITS SUB-Q (09:04)
[2019-11-03 11:55] LABS: Glucose Point of Care 117 (65-105)
[2019-11-03 14:00] VITALS: BP 130/88; PULSE 73; RESP 18; TEMP 36.6; O2SAT 100
--- NOTE | 2019-11-03 14:41 | PM.DS ---
DS: Admitting Diagnosis Admitting Diagnosis Admitting Diagnosis: Type 1 diabetes mellitus with ketoacidosis without coma DS: Discharge Diagnosis Discharge Diagnosis (1) DKA (diabetic ketoacidoses): Qualifiers: Diabetes mellitus complication detail: without coma Diabetes mellitus type: type 1 Qualified Code(s): E10.10 - Type 1 diabetes mellitus with ketoacidosis without coma Code(s): E11.10 - Type 2 diabetes mellitus with ketoacidosis without coma Status: Acute Assessment and Plan: Secondary to nonadherence to medical therapy. Patient was admitted to the ICU and started on DKA protocol. Anion gap has closed. She has been transitioned to subcu insulin. Patient's metabolic acidosis eventually resolved. Educated about the benefits of compliance. (2) Diabetes mellitus: Code(s): E11.9 - Type 2 diabetes mellitus without complications Status: Acute Assessment and Plan: A1c 11.6. The patient was educated about the benefits of being compliant with monitoring. She has been restarted on her Lantus and Humalog. We monitored her glucose and adjusted medications accordingly. (3) Hypomagnesemia: Code(s): E83.42 - Hypomagnesemia Status: Acute Assessment and Plan: Magnesium slightly low on admission. Magnesium was replaced. Repeat level was normal (4) Nausea and vomiting: Qualifiers: Vomiting Intractability: non-intractable Vomiting type: unspecified Qualified Code(s): R11.2 - Nausea with vomiting, unspecified Code(s): R11.2 - Nausea with vomiting, unspecified Status: Acute Assessment and Plan: Likely secondary to acute metabolic acidosis from DKA and symptoms have resolved. Patient had recurrent nausea and vomiting. CT of the abdomen and pelvis showed no acute findings. Lipase was normal. LFTs were normal. Symptoms improved with Reglan and Protonix. (5) Leukocytosis: Qualifiers: Leukocytosis type: unspecified Qualified Code(s): D72.829 - Elevated white blood cell count, unspecified Code(s): D72.829 - Elevated white blood cell count, unspecified Status: Acute Assessment and Plan: Likely secondary to acute DKA. Chest x-ray clear. UA not consistent with UTI. Could be stress response. Repeat white count normal now. (6) Normocytic anemia: Code(s): D64.9 - Anemia, unspecified Status: Chronic Assessment and Plan: Hemoglobin 10-11 range and stable. Similar values when compared to blood work from December. (7) Asthma: Qualifiers: Asthma severity: unspecified severity Asthma persistence: unspecified Asthma complication type: unspecified Qualified Code(s): J45.909 - Unspecified asthma, uncomplicated Code(s): J45.909 - Unspecified asthma, uncomplicated Status: Chronic Assessment and Plan: Lungs remain clear. Continue to monitor. (8) Hypokalemia: Code(s): E87.6 - Hypokalemia Status: Acute Assessment and Plan: Potassium low at times felt related to the nausea and vomiting. Potassium was replaced. Patient eating normally now. This should remain normal now that she is eating and not having obvious losses. DS: Summary Hospital Course Reason for hospitalization: 24yo female with DM here for DKA. Please see H&P for details. Hospital Course: As above Time Spent with Patient Time attestation: Total time spent providing and/or coordinating discharge services:32 minutes Time spent: Greater than 30 minutes Specific discharge activities: Caring for the patient, patient education, preparing the medical record. Exam Narrative: Exam Narrative: AF 97.8 130/88 73 18 100% Gen - NARD Chest - CTA bilaterally, nml RR CV - RRR S1/S2 Abd - Soft, NT/ND, +BS Ext - No pedal edema. 2+ DP pulses bilaterally. Psych - in good spirits Skin - warm and dry DS: Data Data Completed and Pending Labs on d
== END 2019-11-03 15:20 | disposition home or self-care (01) ==
LOC: ANHED 04:27 → ANHICU 04:29 → ANH3MEDSUR 22:04
PROVIDERS: Admitting Provider Family Medicine; Emergency Provider Emergency Medicine; Visit Provider Internal Medicine
DX: E11.10 Type 2 diabetes mellitus with ketoacidosis without coma (principal); R11.2 Nausea with vomiting, unspecified; E83.42 Hypomagnesemia; J45.909 Unspecified asthma, uncomplicated; D72.829 Elevated white blood cell count, unspecified; D64.9 Anemia, unspecified; Z79.4 Long term (current) use of insulin; F12.90 Cannabis use, unspecified, uncomplicated
CPT/HCPCS: 36415; 36600; 71045; 74176; 80048; 80053; 80069; 80076; 81001; 81025; 82010; 82805; 82948; 83036; 83690; 83735; 84100; 85025; 93005; 96361; 96365; 96366; 96367; 96368; 96372; 96374; 96375; 96376; 99291; C9113; G0378; G0379; J0131; J1815; J2405; J2550; J2765; J3475; J3480; J7030; J7120

== ENCOUNTER 2019-11-08 02:15 | Emergency (ER) | payer MEDICAID, SELFPAY ==
[2019-11-08 02:17] VITALS: BP 145/98; PULSE 71; RESP 14; TEMP 37.1; O2SAT 100
[2019-11-08 03:22] VITALS: BP 175/102; PULSE 54; RESP 20; O2SAT 100
[2019-11-08 04:00] LABS: Basophils Percent Auto 0.1 % (0.2-1.2); Hematocrit 36.9 % (37.0-47.0); Hemoglobin 12.1 g/dL (12.0-15.0); Immature Granulocyte Absolute 0.06 K/mm3 (0.00-0.031); Immature Granulocyte Percent A 0.4 % (0-0.5); Lymphocytes Absolute Auto 1.23 K/mm3 (0.9-3.2); Lymphocytes Percent Auto 8.8 % (18.3-44.2); Mean Corpuscular HGB Conc 32.8 g/dl (32-36); Mean Corpuscular Hemoglobin 24.5 pg (26-34); Mean Corpuscular Volume 74.7 fl (80-100); Mean Platelet Volume 10.7 fl (7.4-10.4); Monocytes Absolute Auto 0.5 K/mm3 (0.1-0.6); Monocytes Percent Auto 3.7 % (2.6-8.5); Neutrophils Absolute Auto 12.1 K/mm3 (1.3-6.7); Platelet Count Result 471 k/mm3 (150-375); Red Blood Count 4.94 M/mm3 (4.2-5.4); Red Cell Distribution Width 16.2 % (11.5-14.5); White Blood Count 13.9 K/mm3 (4.5-10.0)
[2019-11-08 04:00] LABS: Glucose Point of Care 349 (65-105)
[2019-11-08] MEDS: ONDANSETRON INJ 4 MG/2 ML VIAL IV PUSH (04:06)
[2019-11-08] MEDS: SODIUM CHLORIDE 0.9% IV 1,000 ML 999 ML IV CONT ×3 (04:06→07:11)
[2019-11-08 04:15] LABS: Lactic Acid Reflex 2.8 mmol/L (0.7-2.1)
[2019-11-08 04:18] LABS: Add Urine Microscopic? YES; Appearance Urine Clear (Clear); Bilirubin Urine Negative (Negative); Blood Urine Negative (Negative); Color Urine Straw (Yellow); Glucose Urine UA 3+ mg/dL (Negative); Ketones Urine 2+ mg/dL (Negative); Leukocyte Esterase Ur Negative LEU/UL (Negative); Nitrate Urine Negative (Negative); Protein Urine 1+ mg/dL (Negative); RBC Urine 0-2 /hpf (0-2); Specific Grav Ur 1.027 (1.001-1.035); Squamous Epithelial Cell Urine Rare /hpf (Few); Urobilinogen Urine Negative mg/dL (<2.0); WBC Urine 0-3 /hpf
[2019-11-08 04:37] VITALS: BP 166/115; PULSE 71; RESP 18; O2SAT 99
[2019-11-08 05:15] LABS: Alanine Aminotransferase 10 U/L (4-35); Albumin Level 4.1 g/dL (3.5-5.1); Alkaline Phosphatase 85 U/L (38-126); Aspartate Amino Transferase 15 U/L (14-36); Bilirubin,Total 0.4 mg/dL (0.2-1.3); Blood Urea Nitrogen 4 mg/dL (7-17); Calcium 8.7 mg/dL (8.4-10.2); Carbon Dioxide 20 mmol/L (22-30); Chloride 102 mmol/L (98-107); Estimated CRCL calculation 182 ml/min; Estimated Glomerular Filt Rate > 60; Glucose 295 mg/dL (65-105); Lipase 108 U/L (23-300); Potassium 3.1 mmol/L (3.4-5.0); Sodium 134 mmol/L (137-145)
--- NOTE | 2019-11-08 06:07 | PC.NURSE ---
Addendum entered by Adonay Cuello RN 11/08/19 06:16: EDP Madan notified. Original Note: Per ED Respiratory, patient refused ABGs at this time.
[2019-11-08 06:14] LABS: Glucose Point of Care 278 (65-105)
[2019-11-08 06:36] VITALS: BP 165/93; PULSE 71; RESP 16; TEMP 37.2; O2SAT 100
[2019-11-08] MEDS: INSULIN HUMAN REGULAR (*BKC) 100 UNITS/ML 7 UNITS IV PUSH (06:48)
[2019-11-08 06:57] LABS: Reflex Lactic Acid Yes or No Add Lactic
--- NOTE | 2019-11-08 07:02 | ED.NAVMDI ---
HPI - Nausea/Vomiting/Diarrhea General Chief complaint: Nausea/Vomiting/Diarrhea <Fidencio Hager MD - Last Filed: 11/08/19 07:06> Time Seen by Provider: 11/08/19 03:52 <Fidencio Hager MD - Last Filed: 11/08/19 07:06> History of Present Illness HPI Narrative: Patient is a 24-year-old female with history of type 1 diabetes who presents the ER with nausea and vomiting. Onset yesterday and throughout the evening. Reports persistent emesis. Patient reports she ran out of her insulin 2 days ago and she is supposed to pick it up tomorrow in [facility] where she resides. No fever/sweats/chills. No chest pain or chest pressure. Abdominal pain is from the retching alone. Has not found any alleviating factors. <Fidencio Hager MD - Last Filed: 11/08/19 07:06> Related Data Home medications: Home Medications Medication Instructions Recorded Confirmed insulin lispro [Humalog U-100 6 unit SUBCUT TIDWMEAL 10/31/19 10/31/19 Insulin] <Fidencio Hager MD - Last Filed: 11/08/19 07:06> Allergies/Adverse reactions: Allergies Allergy/AdvReac Type Severity Reaction Status Date / Time banana Allergy Unknown makes Verified 08/30/18 16:46 mouth swell, couldn't breath <Fidencio Hager MD - Last Filed: 11/08/19 07:06> Review of Systems Review of Systems: All systems reviewed & are unremarkable except as noted in HPI and below <Fidencio Hager MD - Last Filed: 11/08/19 07:06> Constitutional: Constitutional: Denies chills and Denies fever(s) <Fidencio Hager MD - Last Filed: 11/08/19 07:06> ENT: Denies dysphagia and Denies sore throat <Fidencio Hager MD - Last Filed: 11/08/19 07:06> Cardiovascular: Cardiovascular: Denies chest pain and Denies radiating jaw, neck or arm pain <Fidencio Hager MD - Last Filed: 11/08/19 07:06> Gastrointestinal: Gastrointestinal: Reports abdominal pain, Denies diarrhea, Reports nausea and Reports vomiting <Fidencio Hager MD - Last Filed: 11/08/19 07:06> PMFSH Past Medical History Medical History: Medical History (Updated 11/08/19 @ 12:52 by Lauar Carbone MD) Asthma Diabetes mellitus <Fidencio Hager MD - Last Filed: 11/08/19 07:06> Surgical History Surgical History: Surgical History (Updated 11/08/19 @ 07:05 by Fidencio Hager MD) No pertinent past surgical history <Fidencio Hager MD - Last Filed: 11/08/19 07:06> Social History Social History: Social History Smoking status: Never smoker Alcohol intake: current Drinks per week: 4 Substance use: current Substance use type: marijuana Gender identity (if verbalized by the patient): Female Spiritual care concerns: No <Fidencio Hager MD - Last Filed: 11/08/19 07:06> Exam Narrative: Exam Narrative: GENERAL: Uncomfortable-appearing, well-nourished, and in moderate distress. Vomiting. HEAD: Normocephalic, atraumatic. ENT: Mucous membranes moist. CHEST: Clear to auscultation. No respiratory distress. HEART: Regular rate and rhythm. Normal peripheral pulses. ABDOMEN: Soft, nontender, nondistended. EXTREMITIES: Normal range of motion. No edema. SKIN: Warm, dry, no rash. NEURO: Alert and oriented x3. <Fidencio Hager MD - Last Filed: 11/08/19 07:06> Course Course Emergency Course: Patient being hydrated <Fidencio Hager MD - Last Filed: 11/08/19 07:06> Vital Signs Vital signs: Vital Signs Temperature 37.1 C 11/08/19 02:17 Pulse Rate 71 11/08/19 02:17 Respiratory Rate 14 11/08/19 02:17 Blood Pressure 145/98 H 11/08/19 02:17 Pulse Oximetry 100 11/08/19 02:17 Temperature 37.2 C 11/08/19 06:36 Pulse Rate 68 11/08/19 09:57 Respiratory Rate 20 11/08/19 09:57 Blood Pressure 165/93 H 11/08/19 06:36 Pulse Oximetry 96 11/08/19 09:57 <Fidencio Hager MD - Last Filed: 11/08/19 07:06>
--- NOTE | 2019-11-08 07:33 | PC.NURSE ---
Attempted to obtain lactic acid second draw unsuccessful, phlebotomy notified.
--- NOTE | 2019-11-08 08:06 | PC.NURSE ---
Phlebotomy here at this time, unable to obtain second lactic acid. Patient refusing any further blood draw.
[2019-11-08 08:15] LABS: Glucose Point of Care 178 (65-105)
[2019-11-08] MEDS: ONDANSETRON INJ 4 MG/2 ML VIAL (08:40)
--- NOTE | 2019-11-08 08:40 | PC.NURSE ---
Dr. Carbone obtained second lactic acid via femoral artery stick, patient became nauseated and vomited. Zofran 4 mg given IVP at this time verbal order Dr. Carbone.
[2019-11-08 09:02] LABS: Lactic Acid 1.9 mmol/L (0.7-2.1)
[2019-11-08 09:57] VITALS: PULSE 68; RESP 20; O2SAT 96
== END 2019-11-08 09:59 | disposition home or self-care (01) ==
PROVIDERS: Emergency Medicine; Emergency Provider Emergency Medicine
DX: R11.2 Nausea with vomiting, unspecified (principal); E10.9 Type 1 diabetes mellitus without complications; Z79.4 Long term (current) use of insulin; J45.909 Unspecified asthma, uncomplicated
CPT/HCPCS: 36415; 80053; 81001; 81025; 82948; 83605; 83690; 85025; 96361; 96374; 96375; 99284; J1815; J2405; J7030

== ENCOUNTER 2020-01-02 18:59 | Inpatient (IN) | payer OTHER, SELFPAY ==
--- NOTE | ~2020-01-02 | CT_ITS ---
EXAMINATION: CT abdomen pelvis w con EXAM DATE: 01/02/2020 21:38 INDICATION: Abdominal pain. TECHNIQUE: Spiral CT of the abdomen and pelvis was performed following intravenous injection of 100 m L Omnipaque 350. Axial, coronal and sagittal images were reviewed. The dose-length product (DLP) fo r this examination was 502.86 mGy-cm. The exposure was tailored according to patient size (auto mA e xposure control), and iterative reconstruction (ASIR) was used as additional dose reduction technique . Comparison is made to prior examination from 11/01/2019. FINDINGS: The liver, spleen, adrenal glands and pancreas are unremarkable. Gallbladder is unremarkab le. No biliary obstruction. Portal and splenic veins are patent. Kidneys enhance symmetrically. T here is no hydronephrosis. The uterus is anteverted and morphologically normal. The bladder is un remarkable. Along the above the superolateral right labia majora there is subcutaneous peripherally circumscribed fluid density measuring about 2 cm which was not present on prior study, could be infe ction or tiny abscess. See axial image 170 Please clinically correlate. Some reactive inguinal lymph nodes upper limits of normal in size. The appendix is normal. The stomach and small bowel are unremarkable. Moderately distended rectal v nils. No free intraperitoneal gas. The heart is normal in size. There are no pericardial or pleu ral effusions. The lung bases are unremarkable. The bones are unremarkable. IMPRESSION: 1. No acute intra-abdominal findings. 2. Development of subcutaneous fluid density region above the right labia majora, possible infection or abscess. Clinical correlation. 3. Moderately distended rectal vault. Reviewed, dictated and finalized at location A. IMPRESSION: 1. No acute intra-abdominal findings. 2. Development of subcutaneous fluid density region above the right labia bruce ra, possible infection or abscess. Clinical correlation. 3. Moderately distended rectal vault.
--- NOTE | ~2020-01-02 | US_ITS ---
US abdomen complete INDICATION: Low back pain. Nausea and vomiting. PROCEDURE: Realtime right upper abdominal ultrasound. COMPARISON: No prior studies for comparison. FINDINGS: The pancreas is normal without focal mass or pancreatic ductal dilation. Liver echotexture is normal without focal mass or intrahepatic biliary dilatation. There is normal directional flow i n the portal vein. Gallbladder is surgically absent. Common duct measures 2 mm. No sonographic Willoughby's sign. Renal echo texture is normal bilaterally without hydronephrosis, contour deforming mass or renal calculi. Spleen is normal. Abdominal aorta and IVC are patent. IMPRESSION: 1: Normal abdominal ultrasound post cholecystectomy. Reviewed, dictated and finalized at location A.
[2020-01-02 19:02] VITALS: BP 144/105; PULSE 94; RESP 20; TEMP 36.6; O2SAT 97
[2020-01-02] MEDS: SODIUM CHLORIDE 0.9% IV 1,000 ML 999 ML IV CONT ×2 (19:10→19:59)
--- NOTE | 2020-01-02 19:11 | ED.GENADULT ---
HPI - General Adult General Chief complaint: Nausea/Vomiting/Diarrhea Stated complaint: n/v Time Seen by Provider: 01/02/20 19:03 Source: RN notes reviewed History of Present Illness HPI narrative: Patient presents emergency department from home via EMS for nausea vomiting diarrhea. Patient states symptoms began 2 days ago. States numerous episodes of nausea vomiting. States she is a diabetic and has not taken her insulin for the past 2 days. Notes generalized abdominal pain described as cramping. Denies any fevers or chills cough chest pain shortness of breath or any other symptoms Related Data Home Medications Medication Instructions Recorded Confirmed insulin lispro [Humalog U-100 6 unit SUBCUT TIDWMEAL 10/31/19 10/31/19 Insulin] Allergies Allergy/AdvReac Type Severity Reaction Status Date / Time banana Allergy Unknown makes Verified 01/02/20 19:06 mouth swell, couldn't breath Review of Systems Review of Systems: Narrative: Gen.: Denies fevers or chills ENT: Denies congestion Respiratory: Denies shortness of breath or cough CV: Denies chest pain or palpitations GI: See HPI denies burning, urgency, frequency or hematuria Musculoskeletal: Denies back pain or muscle pain Neuro: Denies numbness, tingling, weakness or focal weakness Skin: Denies rash Except as documented, all other systems reviewed and negative PMFSH Past Medical History Medical History Asthma Diabetes mellitus Surgical History Surgical History No pertinent past surgical history Social History Social History Smoking status: Current every day smoker Second hand tobacco smoke exposure: No Alcohol intake: current Drinks per week: 4 Substance use: current Substance use type: marijuana Gender identity (if verbalized by the patient): Female Spiritual care concerns: No Exam Narrative: Exam Narrative: APPEARANCE: No acute distress, nontoxic, resting in bed EYES: EOMI HEENT: Normocephalic, atraumatic, oromucosa dry RESPIRATORY: No respiratory distress Clear to auscultation bilaterally with no rhonchi wheezing or rales. CARDIOVASCULAR: Regular rate and rhythm without murmurs rubs or gallops. ABDOMINAL: Soft, nontender, nondistended, no rebound or guarding MUSCULOSKELETAl: Moves all extremities. No clubbing, cyanosis or edema. NEURO: Awake and alert. Following commands, speech normal, no focal deficits SKIN:: Warm, dry. The right groin has a area of fluctuance with no active drainage mild surrounding erythema consistent with abscess PSYCHIATRIC: Normal affect/mood, Course Course Emergency Course: Reviewed old records Patient continues to have nausea and vomiting will admit at this time Dr. Robertson presentation work-up. Agrees with admission at this time. Agrees with plan for Ancef until patient may take p.o. antibiotics Discussed with patient and family results of workup and diagnosis. Discussed need for admission. Patient and family understand and agree to current treatment plan Vital Signs Vital signs: Vital Signs Temperature 97.8 F 01/02/20 19:02 Pulse Rate 94 01/02/20 19:02 Respiratory Rate 20 01/02/20 19:02 Blood Pressure 144/105 H 01/02/20 19:02 Pulse Oximetry 97 01/02/20 19:02 Temperature 97.8 F 01/02/20 19:02 Pulse Rate 92 01/02/20 22:45 Respiratory Rate 18 01/02/20 22:45 Blood Pressure 157/113 H 01/02/20 22:45 Pulse Oximetry 100 01/02/20 22:45 Procedures Abscess I/D other: Abcess I&D Additional Comments: Verbal consent was obtained prior to procedure. The abscess was cleaned with Betadine and lidocaine 1% with epi was used for anesthesia. The abscess was incised with an 11 blade. There was return of approximately 4-5 mL of thick purulent drainage. Curved hemostats were used to break
[2020-01-02 19:12] LABS: Glucose Point of Care 405 (65-105)
--- NOTE | 2020-01-02 19:16 | PC.NURSE ---
report given to HAMILTON Wood.
[2020-01-02 19:19] LABS: Basophils Percent Auto 0.2 % (0.2-1.2); Eosinophils Absolute Auto 0.1 K/mm3 (0-0.3); Eosinophils Percent Auto 0.5 % (0-4.4); Hematocrit 33.7 % (37.0-47.0); Hemoglobin 10.5 g/dL (12.0-15.0); Immature Granulocyte Absolute 0.04 K/mm3 (0.00-0.031); Immature Granulocyte Percent A 0.4 % (0-0.5); Lymphocytes Absolute Auto 1.68 K/mm3 (0.9-3.2); Lymphocytes Percent Auto 16.3 % (18.3-44.2); Mean Corpuscular HGB Conc 31.2 g/dl (32-36); Mean Corpuscular Hemoglobin 23.3 pg (26-34); Mean Corpuscular Volume 74.7 fl (80-100); Mean Platelet Volume 10.5 fl (7.4-10.4); Monocytes Absolute Auto 0.7 K/mm3 (0.1-0.6); Monocytes Percent Auto 6.8 % (2.6-8.5); Neutrophils Absolute Auto 7.8 K/mm3 (1.3-6.7); Neutrophils Percent Auto 75.8 % (45.5-73.1); Platelet Count Result 362 k/mm3 (150-375); Red Blood Count 4.51 M/mm3 (4.2-5.4); Red Cell Distribution Width 16.1 % (11.5-14.5); White Blood Count 10.3 K/mm3 (4.5-10.0)
[2020-01-02 19:33] LABS: Alanine Aminotransferase 9 U/L (4-35); Albumin Level 4.1 g/dL (3.5-5.1); Alkaline Phosphatase 90 U/L (38-126); Anion Gap 11 mmol/L (8-16); Aspartate Amino Transferase 13 U/L (14-36); Bilirubin,Total 0.3 mg/dL (0.2-1.3); Blood Urea Nitrogen 13 mg/dL (7-17); Calcium 9.2 mg/dL (8.4-10.2); Carbon Dioxide 26 mmol/L (22-30); Chloride 101 mmol/L (98-107); Estimated CRCL calculation 124 ml/min; Estimated Glomerular Filt Rate > 60; Glucose 433 mg/dL (65-105); Lipase 585 U/L (23-300); Magnesium 1.8 mg/dL (1.6-2.3); Phosphorus 2.4 mg/dL (2.5-4.5); Potassium 3.7 mmol/L (3.4-5.0); Sodium 138 mmol/L (137-145)
[2020-01-02 19:37] LABS: Beta-Hydroxybutyrate/Acetoacetate 0.11 mmol/L (0.02-0.27)
[2020-01-02] MEDS: ONDANSETRON INJ 4 MG/2 ML VIAL IV PUSH (19:59)
[2020-01-02 20:00] LABS: Add Urine Microscopic? YES; Appearance Urine Clear (Clear); Bilirubin Urine Negative (Negative); Blood Urine Negative (Negative); Color Urine Colorless (Yellow); Glucose Urine UA 3+ mg/dL (Negative); Ketones Urine Trace mg/dL (Negative); Leukocyte Esterase Ur Negative LEU/UL (Negative); Nitrate Urine Negative (Negative); Protein Urine Negative (Negative); RBC Urine 0-2 /hpf (0-2); Specific Grav Ur 1.035 (1.001-1.035); Squamous Epithelial Cell Urine Occasional /hpf (Few); Urobilinogen Urine Negative mg/dL (<2.0); WBC Urine 0-3 /hpf
[2020-01-02] MEDS: PROMETHAZINE HCL 25 MG/ML AMPUL 12.5 MG IV PUSH (21:21)
[2020-01-02 21:23] VITALS: BP 138/82; PULSE 82; RESP 20; O2SAT 95
[2020-01-02 21:25] LABS: Glucose Point of Care 318 (65-105)
--- NOTE | 2020-01-02 22:39 | PC.NURSE ---
Asked patient to remove her underwear prior to MD coming in to do the procedure, pt refuses no I am spotting, I ll do it when he gets here .
[2020-01-02 22:45] VITALS: BP 157/113; PULSE 92; RESP 18; O2SAT 100
--- NOTE | 2020-01-02 23:32 | PM.IMHP ---
H&P: HPI History of Present Illness Date/Time: 01/02/20 23:32 Chief complaint: Intractable nausea and vomiting, Narrative: This is a 24 year old insulin dependent diabetic female who is well known to our hospitalist service from multiple recent admissions for acute DKA and [facility] with a complaint of nausea, vomiting and diarrhea. She reports that her symptoms started approximately two days ago and she hasn't taken her insulin for the past two days. She reports multiple episodes of vomiting and dry heaving. The patient has a past history of nonadherence to her medical regimen. Tonight she is complaining of generalized abdominal discomfort but denies any cough, fever, headache, chest pain, palpitations, dysuria, hematuria, rectal bleeding or LE swelling. ER provider discovered the patient had a right pelvic skin abscess and incised and drained it [facility]. Routine labs demonstrated hyperglycemia although the patient is not in acute DKA. She was treated w/ IV fluid bolus of NS and ancef IV. We have been asked to admit her for further care. No other complaints. Review of Systems Review of Systems: All systems reviewed & are unremarkable except as noted in HPI and below PMFSH Past Medical History Medical History Asthma Diabetes mellitus Surgical History Surgical History No pertinent past surgical history Social History Social History Smoking status: Current every day smoker Second hand tobacco smoke exposure: No Alcohol intake: unknown Drinks per week: 4 Substance use: unknown Substance use type: marijuana Other substance usage details: Patient refuses to answer questions. Gender identity (if verbalized by the patient): Female Sexual Orientation (if Verbalized by the Patient): Straight or Heterosexual Spiritual care concerns: No Meds Home Medications and Allergies Home Medications Medication Instructions Recorded Confirmed Type insulin lispro [Humalog U-100 6 unit SUBCUT TIDWMEAL 10/31/19 01/03/20 History Insulin] Lantus U-100 Insulin 30 unit SUBCUT HS #0 11/03/19 01/03/20 Rx insulin glargine [Lantus U-100 30 unit SUB-Q .Nightly 30 Days #10 11/08/19 01/03/20 Rx Insulin] ml insulin lispro [Humalog U-100 8 unit SUB-Q TID 30 Days #7.2 ml 11/08/19 01/03/20 Rx Insulin] ondansetron HCl [Zofran] 4 mg PO Q8H #14 tablet 11/08/19 01/03/20 Rx Allergies Allergy/AdvReac Type Severity Reaction Status Date / Time banana Allergy Unknown makes Verified 01/02/20 19:06 mouth swell, couldn't breath Vital Signs Vital Signs - 24 hr 01/02/20 19:02 01/02/20 21:23 01/02/20 22:45 Temperature 36.6 C Pulse Rate 94 82 92 Respiratory Rate 20 20 18 Blood Pressure 144/105 H 138/82 157/113 H Pulse Oximetry 97 95 100 Exam Const: General: cooperative, alert, awake, ill appearing and uncomfortable Nutritional Appearance: obese Orientation/consciousness: patient oriented x3 HENMT: Head: normal to inspection General nose exam: Normal external nose present Face and sinus: normal facial exam Mouth: Yes Normal oral and palatal mucosa present and Yes oropharynx normal Eyes: Pupils: Equal, round and reactive pupils present EOM: EOMs intact bilaterally Neck: Neck: supple and no JVD Thyroid: thyroid normal Lymphatic: lymphadenopathy not noted Resp: Effort & Inspection: tachypneic Auscultation: clear to auscultation bilaterally Cardio: Rate: regular rate Rhythm: regular rhythm Heart sounds: no murmurs GI: Inspection: normal to inspection Auscultation: normal bowel sounds Skin: General skin exam: normal color Other: right lower pelvic skin abscess that was lanced and drained in the ER. Neuro: General: patient oriented x3 Cranial nerves: Yes CN's II-XII int
[2020-01-02] MEDS: SODIUM CHLORIDE 0.9% IV 1,000 ML 125 ML IV CONT (23:57)
[2020-01-03 00:20] VITALS: BP 178/108; PULSE 58; RESP 20; TEMP 36.7; O2SAT 100
--- NOTE | 2020-01-03 00:32 | ADMGEN ---
This patient, Marianne Fofana, was admitted to 3 [facility] Surg Room 301-01. Patient/family oriented to hospital policies and general routines including ID bracelet, bed and alarms, visiting hours, pain management, procedures, bathroom and other care routines, personal items, smoking policy, room service/diet, and visiting hours. Valuables list has been completed. Information on how to activate the Rapid Response Team has been discussed. Patient/Family are encouraged to report perceived risks to care and to ask questions if they do not understand what they are told or what they should do. Patient uncooperative with admission assessment and refused to answer questions.
[2020-01-03 00:46] VITALS: BMI 35.9
[2020-01-03 00:57] LABS: Glucose Point of Care 347 (65-105)
[2020-01-03] MEDS: hydrALAZINE HCL 20 MG/ML VIAL 10 MG IV PUSH (01:04)
[2020-01-03] MEDS: INSULIN ASPART (*BKC) 100 UNITS/ML SUB-Q ×5 (01:04→20:31)
[2020-01-03 06:00] VITALS: BP 149/95; PULSE 62; RESP 20; TEMP 36.7; O2SAT 100
[2020-01-03 06:03] LABS: Glucose Point of Care 283 (65-105)
[2020-01-03] MEDS: INSULIN GLARGINE (*BKC) 100 UNITS/ML 10 UNITS SUB-Q (08:28)
[2020-01-03] MEDS: SODIUM CHLORIDE 0.9% IV 1,000 ML 125 ML IV CONT (08:35)
--- NOTE | 2020-01-03 10:24 | PM.IMPN ---
Progress Note: A&P Assessment and Plan (1) Nausea and vomiting: Qualifiers: Vomiting Intractability: non-intractable Vomiting type: unspecified Qualified Code(s): R11.2 - Nausea with vomiting, unspecified <Alida Anaya AsaMADHURI mastC - Last Filed: 01/03/20 10:44> Code(s): R11.2 - Nausea with vomiting, unspecified <Alida SutherlandFALGUNI Damon-C - Last Filed: 01/03/20 10:44> Status: Acute <Alida Anaya AsaFALGUNI mast-C - Last Filed: 01/03/20 10:44> Assessment and Plan: Resolved. Continue antiemetics PRN nausea. She tolerated CLD. Advance diet as tolerated. <Alida SutherlandMADHURI DamonC - Last Filed: 01/03/20 10:44> (2) Skin abscess: Qualifiers: Site of cutaneous abscess: trunk Site of cutaneous abscess of trunk: abdominal wall Qualified Code(s): L02.211 - Cutaneous abscess of abdominal wall <Alida SutherlandFALGUNI Damon-C - Last Filed: 01/03/20 10:44> Code(s): L02.91 - Cutaneous abscess, unspecified <Alida SutherlandFALGUNI Damon-C - Last Filed: 01/03/20 10:44> Status: Acute <Alida Anaya AsaFALGUNI mast-C - Last Filed: 01/03/20 10:44> Assessment and Plan: Abscess still present on my exam today (approx 2x2cm) despite prior I&D in ED. I have asked FAST BRIM POUNCER to see her. Add IV vancomycin and continue IV cefazolin. Await further FAST BRIM POUNCER input which is greatly appreciated. <Alida MADHURI HarrisC - Last Filed: 01/03/20 10:44> (3) Type 1 diabetes mellitus: Code(s): E10.9 - Type 1 diabetes mellitus without complications <AlidaFALGUNI Nino-C - Last Filed: 01/03/20 10:44> Status: Acute <Alida FALGUNI Harris-C - Last Filed: 01/03/20 10:44> Assessment and Plan: Hyperglycemia present without DKA. Pt has a hx of nonadherence to medical therapy. Check A1c. Most recent A1c 10/31/19 11.6. She did not receive lantus last night. Administer 10 units this AM and 20 units HS. Resume regular 30 units HS tomorrow. Add mealtime insulin of 7 units. Continue ACHS glucose monitoring, sliding scale insulin, and hypoglycemia protocol. <Alida SutherlandArturo Soria PA-C - Last Filed: 01/03/20 10:44> (4) Diabetes mellitus: Code(s): E11.9 - Type 2 diabetes mellitus without complications <Alida Jaclyn Sroia PA-C - Last Filed: 01/03/20 10:44> Status: Acute <Alida Anaya MICKY Soria - Last Filed: 01/03/20 10:44> Assessment and Plan: Hypergw/ hyperglycemia. Accuchecks, SSI coverage, hypoglycemia protocol. <Alida Jaclyn Soria PA-C - Last Filed: 01/03/20 10:44> (5) Normocytic anemia: Code(s): D64.9 - Anemia, unspecified <Alida Anaya MICKY Soria - Last Filed: 01/03/20 10:44> Status: Chronic <Alida Anaya MICKY Soria - Last Filed: 01/03/20 10:44> Assessment and Plan: Hb 10.5 and Hct 33.7 at presentation to ED. Microcytic, likely MICHEAL. Check iron studies, vitamin B12, folate. She has no evidence of acute blood loss. Continue to monitor and transfuse PRN to maintain Hb >7. <Alida Jaclyn Soria PA-C - Last Filed: 01/03/20 10:44> (6) Asthma: Qualifiers: Asthma complication type: unspecified Asthma persistence: unspecified Asthma severity: unspecified severity Qualified Code(s): J45.909 - Unspecified asthma, uncomplicated <Alida Soria PA-C - Last Filed: 01/03/20 10:44> Code(s): J45.909 - Unspecified asthma, uncomplicated <Alida Soria PA-C - Last Filed: 01/03/20 10:44> Status: Chronic <Alida Soria PA-C - Last Filed: 01/03/20 10:44> Assessment and Plan: Continue nebulized bronchodilators PRN. <Alida Soria PA-C - Last Filed: 01/03/20 10:44> Subjective Date/time seen: 01/03/20 10:24 Ms. Fofana is a 24 y.o. female with PMH significant for IDDM and asthma who is seen in follow-up for a perineal abscess. She underwent I&D in the emergency department and notes pain relief. She is sl
[2020-01-03 11:01] LABS: Basophils Percent Auto 0.2 % (0.2-1.2); Hematocrit 37.6 % (37.0-47.0); Hemoglobin 11.5 g/dL (12.0-15.0); Immature Granulocyte Absolute 0.08 K/mm3 (0.00-0.031); Immature Granulocyte Percent A 0.5 % (0-0.5); Lymphocytes Absolute Auto 1.19 K/mm3 (0.9-3.2); Lymphocytes Percent Auto 6.9 % (18.3-44.2); Mean Corpuscular HGB Conc 30.6 g/dl (32-36); Mean Corpuscular Hemoglobin 23.1 pg (26-34); Mean Corpuscular Volume 75.5 fl (80-100); Mean Platelet Volume 10.2 fl (7.4-10.4); Monocytes Absolute Auto 0.4 K/mm3 (0.1-0.6); Monocytes Percent Auto 2.3 % (2.6-8.5); Neutrophils Absolute Auto 15.6 K/mm3 (1.3-6.7); Neutrophils Percent Auto 90.1 % (45.5-73.1); Platelet Count Result 327 k/mm3 (150-375); Red Blood Count 4.98 M/mm3 (4.2-5.4); Red Cell Distribution Width 16.9 % (11.5-14.5); White Blood Count 17.3 K/mm3 (4.5-10.0)
[2020-01-03 11:19] LABS: Alanine Aminotransferase 17 U/L (4-35); Albumin Level 4.5 g/dL (3.5-5.1); Alkaline Phosphatase 134 U/L (38-126); Anion Gap 17 mmol/L (8-16); Aspartate Amino Transferase 25 U/L (14-36); Bilirubin,Total 0.5 mg/dL (0.2-1.3); Blood Urea Nitrogen 9 mg/dL (7-17); Calcium 9.8 mg/dL (8.4-10.2); Carbon Dioxide 15 mmol/L (22-30); Chloride 107 mmol/L (98-107); Estimated CRCL calculation 155 ml/min; Estimated Glomerular Filt Rate > 60; Glucose 250 mg/dL (65-105); Potassium 3.5 mmol/L (3.4-5.0); Sodium 139 mmol/L (137-145)
[2020-01-03 11:28] LABS: Hemoglobin A1C 9.7 % (<5.7)
[2020-01-03 11:28] LABS: Lipase 45 U/L (23-300); Magnesium 1.6 mg/dL (1.6-2.3); Phosphorus 4.3 mg/dL (2.5-4.5)
[2020-01-03 11:33] LABS: Iron 35 ug/dL (37-170)
[2020-01-03 11:39] LABS: Transferrin 394 mg/dL (206-381)
[2020-01-03 11:42] LABS: Percent Iron Saturation 7 % (20-50)
[2020-01-03 12:09] LABS: Ferritin 8.98 ng/mL (6.24-137)
[2020-01-03 12:16] LABS: Glucose Point of Care 256 (65-105)
[2020-01-03] MEDS: ONDANSETRON INJ 4 MG/2 ML VIAL IV PUSH (12:18)
--- NOTE | 2020-01-03 12:18 | PC.NURSE ---
Called to room patient had emesis of 600ml clear liquid, states she drank water too fast, Zofran given per request but states she feels much better.
--- NOTE | 2020-01-03 12:25 | WPDCN ---
Assessment and Plan Assessment and plan (1) Abscess of groin, right: Code(s): L02.214 - Cutaneous abscess of groin Status: Acute Assessment and Plan: s/p I & D continue dressing continue antibiotics Will sign off .Thanks for consultation. pt to f/u in office as outpatient.Informed plan to nurse. HPI Data of Consult Date/Time: 01/03/20 12:25 Requesting Physician: Alida Soria PA-C Primary Care Provider: MAID CLEANING COOKING PHYSICIAN Consult Narrative Reason for consult: labial abscess Narrative: Marianne Fofana is a 24 year old female who is admitted for intractable nausea and vomiting. Pt is K/C/O IDDM and is very non compliant. when entered in room with Nurse, pt refused for to give information and for exam. She wanted to sleep. I informed pt that than i will come tomorrow or may be she can f/u in my office. Than pt agreed for exam i.e just visual inspection only. Pt had I & D in ER yesterday right labia. Per pt she has noticed swelling for couple days in the area. sexually active, new partner x 4 month. per pt has cycles regular.Denies on any BC. Review of Systems Constitutional: Constitutional: Reports as per HPI ENT: Reports as per HPI and Reports Normal hearing present Genitourinary: Genitourinary: Reports as per HPI PMFSH Past Medical History Medical History Asthma Diabetes mellitus Surgical History Surgical History No pertinent past surgical history Social History Social History Smoking status: Current every day smoker Second hand tobacco smoke exposure: No Alcohol intake: unknown Drinks per week: 4 Substance use: unknown Substance use type: marijuana Other substance usage details: Patient refuses to answer questions. Gender identity (if verbalized by the patient): Female Sexual Orientation (if Verbalized by the Patient): Straight or Heterosexual Spiritual care concerns: No Meds Home Medications and Allergies Home Medications Medication Instructions Recorded Confirmed Type insulin lispro [Humalog U-100 6 unit SUBCUT TIDWMEAL 10/31/19 01/03/20 History Insulin] Lantus U-100 Insulin 30 unit SUBCUT HS #0 11/03/19 01/03/20 Rx insulin glargine [Lantus U-100 30 unit SUB-Q .Nightly 30 Days #10 11/08/19 01/03/20 Rx Insulin] ml insulin lispro [Humalog U-100 8 unit SUB-Q TID 30 Days #7.2 ml 11/08/19 01/03/20 Rx Insulin] ondansetron HCl [Zofran] 4 mg PO Q8H #14 tablet 11/08/19 01/03/20 Rx Allergies Allergy/AdvReac Type Severity Reaction Status Date / Time banana Allergy Unknown makes Verified 01/02/20 19:06 mouth swell, couldn't breath Vital Signs Vital Signs - 24 hr 01/02/20 19:02 01/02/20 21:23 01/02/20 22:45 Temperature 36.6 C Pulse Rate 94 82 92 Respiratory Rate 20 20 18 Blood Pressure 144/105 H 138/82 157/113 H Pulse Oximetry 97 95 100 01/03/20 00:20 01/03/20 06:00 Temperature 36.7 C 36.7 C Pulse Rate 58 L 62 Respiratory Rate 20 20 Blood Pressure 178/108 H 149/95 H Pulse Oximetry 100 100 Exam Const: General: comfortable and no acute distress : External Female Exam: normal external appearance (no drainage noted form I & D site on Rt labia. minimal swelling noted) Other: no erythema noted. pt refused to remove her underpants and so exam was just inspection only Results Labs CBC & Chem 7: 01/03/20 10:51 01/03/20 10:51 Labs: Short CBC 01/02/20 01/03/20 Range/Units 19:09 10:51 WBC 10.3 H 17.3 H (4.5-10.0) K/mm3 Hgb 10.5 L 11.5 L (12.0-15.0) g/dL Hct 33.7 L 37.6 (37.0-47.0) % Plt Count 362 327 (150-375) k/mm3 BMP 01/02/20 01/03/20 19:09 10:51 Sodium 138 139 Potassium 3.7 3.5 Chloride 101 107 Carbon Dioxide 26 15 L BUN 13 D 9 Creatinine 0.60 L 0.50 L Glucose
[2020-01-03 14:00] VITALS: BP 124/73; PULSE 68; RESP 16; TEMP 36.2; O2SAT 99
--- NOTE | 2020-01-03 16:15 | PM.CNGS ---
Assessment and Plan Assessment and plan (1) Abscess of groin, right: Code(s): L02.214 - Cutaneous abscess of groin Status: Acute Assessment and Plan: Seems to be adequately drained. Patient can go home on oral antibiotics when her diabetes is adequately controlled. She can follow up with her primary care physician. Doubt there will be any additional problems. Abscess is very superficial. History of Present Illness Consult details Consult date: 01/03/20 Reason for consult: other (Pubic abscess) Narrative: patient is a 24-year-old woman who is an insulin-dependent diabetic. She came to the emergency room yesterday because she was having nausea vomiting and diarrhea. She had not been able to take her insulin. She was noted in the emergency room to have a small abscess on the right side of her pubis. This was incised and drained in the emergency room. I was asked to see her regarding residual abscess and possible surgical management. Patient is quite sleepy and it was hard to get any history from her. She does arouse. She told me she does feel better. Review of Systems Review of Systems: All systems reviewed & are unremarkable except as noted in HPI and below ( HPI) Constitutional: Constitutional: Denies chills, Reports daytime sleepiness, Reports fatigue, Denies fever(s) and Reports lethargy PMFSH Past Medical History Medical History Asthma Diabetes mellitus Surgical History Surgical History No pertinent past surgical history Social History Social History Smoking status: Current every day smoker Second hand tobacco smoke exposure: No Alcohol intake: unknown Drinks per week: 4 Substance use: unknown Substance use type: marijuana Other substance usage details: Patient refuses to answer questions. Gender identity (if verbalized by the patient): Female Sexual Orientation (if Verbalized by the Patient): Straight or Heterosexual Spiritual care concerns: No Meds Home Medications and Allergies Home Medications Medication Instructions Recorded Confirmed Type insulin lispro [Humalog U-100 6 unit SUBCUT TIDWMEAL 10/31/19 01/03/20 History Insulin] Lantus U-100 Insulin 30 unit SUBCUT HS #0 11/03/19 01/03/20 Rx insulin glargine [Lantus U-100 30 unit SUB-Q .Nightly 30 Days #10 11/08/19 01/03/20 Rx Insulin] ml insulin lispro [Humalog U-100 8 unit SUB-Q TID 30 Days #7.2 ml 11/08/19 01/03/20 Rx Insulin] ondansetron HCl [Zofran] 4 mg PO Q8H #14 tablet 11/08/19 01/03/20 Rx Allergies Allergy/AdvReac Type Severity Reaction Status Date / Time banana Allergy Unknown makes Verified 01/02/20 19:06 mouth swell, couldn't breath Vital Signs Vital Signs - 24 hr 01/02/20 19:02 01/02/20 21:23 01/02/20 22:45 Temperature 36.6 C Pulse Rate 94 82 92 Respiratory Rate 20 20 18 Blood Pressure 144/105 H 138/82 157/113 H Pulse Oximetry 97 95 100 01/03/20 00:20 01/03/20 06:00 01/03/20 14:00 Temperature 36.7 C 36.7 C 36.2 C L Pulse Rate 58 L 62 68 Respiratory Rate 20 20 16 Blood Pressure 178/108 H 149/95 H 124/73 Pulse Oximetry 100 100 99 Exam Const: General: healthy appearing, comfortable, no acute distress and lethargic Nutritional Appearance: average body habitus and malnourished Skin: Wounds: wounds noted ( I and D site on pubis noted, induration but no residual abscess. Tender.) Results Labs Result diagrams: 01/03/20 10:51 01/03/20 10:51 Labs: Abnormal lab results 01/02/20 01/02/20 01/02/20 Range/Units 19:05 19:09 19:09 WBC 10.3 H (4.5-10.0) K/mm3 Hgb 10.5 L (12.0-15.0) g/dL Hct 33.7 L (37.0-47.0) % MCV 74.7 L (80-100) fl MCH 23.3 L (26-34) pg MCHC 31.2 L (32-36) g/dl RDW 16.1 H (11.5-1
[2020-01-03 16:55] LABS: Anion Gap 13 mmol/L (8-16); Blood Urea Nitrogen 9 mg/dL (7-17); Calcium 9.1 mg/dL (8.4-10.2); Carbon Dioxide 12 mmol/L (22-30); Chloride 109 mmol/L (98-107); Estimated CRCL calculation 155 ml/min; Estimated Glomerular Filt Rate > 60; Glucose 264 mg/dL (65-105); Potassium 3.8 mmol/L (3.4-5.0); Sodium 134 mmol/L (137-145)
--- NOTE | 2020-01-03 17:50 | PC.NURSE ---
patient refusing all blood draws, did allow nurse to do finger stick for blood sugar.
[2020-01-03 18:10] LABS: Glucose Point of Care 218 (65-105)
[2020-01-03] MEDS: SODIUM BICARBONATE 8.4% 100 MEQ in WATER, STERILE FOR INJECTION 1,000 ML 50 MEQ IV CONT (18:29)
[2020-01-03] MEDS: INSULIN GLARGINE (*BKC) 100 UNITS/ML 20 UNITS SUB-Q (20:36)
[2020-01-03 21:03] VITALS: BP 127/80; PULSE 95; RESP 18; TEMP 36.2; O2SAT 100
[2020-01-03 22:56] LABS: Glucose Point of Care 220 (65-105)
--- NOTE | 2020-01-04 02:22 | PC.NURSE ---
house sup. to b/s to start iv, lai sup. unsuccessful, dr vitale notified. no new orders at this time.
--- NOTE | 2020-01-04 05:09 | PC.NURSE ---
vanc on pause due to no iv, pt refuses an.more needle sticks til am
[2020-01-04 06:00] VITALS: BP 117/57; PULSE 78; RESP 16; TEMP 36.2; O2SAT 98
[2020-01-04 07:30] LABS: Potassium Urine Random 33.3 meq/L
[2020-01-04 07:46] LABS: Sodium Urine Random 48 meq/L
[2020-01-04 08:00] VITALS: PULSE 78; RESP 16; O2SAT 98
[2020-01-04] MEDS: INSULIN ASPART (*BKC) 100 UNITS/ML SUB-Q ×4 (09:44→20:39)
[2020-01-04] MEDS: INSULIN ASPART (*BKC) 100 UNITS/ML 6 UNITS SUB-Q ×3 (09:46→18:52)
[2020-01-04] MEDS: SODIUM CHLORIDE 0.9% IV 1,000 ML 125 ML IV CONT (11:34)
[2020-01-04 11:45] LABS: Basophils Percent Auto 0.2 % (0.2-1.2); Eosinophils Percent Auto 0.1 % (0-4.4); Hematocrit 34.7 % (37.0-47.0); Immature Granulocyte Absolute 0.08 K/mm3 (0.00-0.031); Immature Granulocyte Percent A 0.5 % (0-0.5); Lymphocytes Absolute Auto 1.26 K/mm3 (0.9-3.2); Lymphocytes Percent Auto 7.7 % (18.3-44.2); Mean Corpuscular HGB Conc 31.7 g/dl (32-36); Mean Corpuscular Hemoglobin 23.5 pg (26-34); Mean Platelet Volume 10.7 fl (7.4-10.4); Monocytes Absolute Auto 0.3 K/mm3 (0.1-0.6); Neutrophils Absolute Auto 14.6 K/mm3 (1.3-6.7); Neutrophils Percent Auto 89.5 % (45.5-73.1); Platelet Count Result 359 k/mm3 (150-375); Red Blood Count 4.69 M/mm3 (4.2-5.4); Red Cell Distribution Width 16.5 % (11.5-14.5); White Blood Count 16.3 K/mm3 (4.5-10.0)
[2020-01-04 11:53] LABS: Anion Gap 12 mmol/L (8-16); Blood Urea Nitrogen 10 mg/dL (7-17); Calcium 8.9 mg/dL (8.4-10.2); Carbon Dioxide 17 mmol/L (22-30); Chloride 104 mmol/L (98-107); Estimated CRCL calculation 155 ml/min; Estimated Glomerular Filt Rate > 60; Glucose 273 mg/dL (65-105); Sodium 133 mmol/L (137-145)
[2020-01-04 12:25] LABS: Glucose Point of Care 218 (65-105)
[2020-01-04 12:25] LABS: Glucose Point of Care 301 (65-105)
[2020-01-04 14:00] VITALS: BP 127/53; PULSE 76; RESP 20; TEMP 36.9; O2SAT 97
--- NOTE | 2020-01-04 14:46 | PM.IMPN ---
Progress Note: A&P Assessment and Plan (1) Nausea and vomiting: Qualifiers: Vomiting Intractability: non-intractable Vomiting type: unspecified Qualified Code(s): R11.2 - Nausea with vomiting, unspecified Code(s): R11.2 - Nausea with vomiting, unspecified Status: Acute Assessment and Plan: Resolved. Continue antiemetics PRN nausea. She tolerated CLD. Advance diet as tolerated. 01/04/20 14:46 Patient is a 24 year female with history of type 1 diabetes patient presented emergency department with a complaint right labial abscess patient was seen in ER had I and D data patient was seen by surgery service patient examined and it is superficial abscess recommended to continue present management no surgical intervention is needed, also complains of abdominal pain nausea or vomiting and unable to take her insulin resulting in elevated blood sugar and early sign of DKA however patient is being hydrated symptoms improved however patient is continue to complain abdominal pain nausea and vomiting to further evaluate patient had a ultrasound of abdomen is essentially normal, patient is clinically stable will continue to hydrate the patient, antiemetic and pain medication, continue to monitor BMP and further recommendations to follow (2) Skin abscess: Qualifiers: Site of cutaneous abscess: trunk Site of cutaneous abscess of trunk: abdominal wall Qualified Code(s): L02.211 - Cutaneous abscess of abdominal wall Code(s): L02.91 - Cutaneous abscess, unspecified Status: Acute Assessment and Plan: Abscess still present on my exam today (approx 2x2cm) despite prior I&D in ED. I have asked NAPHTHALENE OPERATOR to see her. Add IV vancomycin and continue IV cefazolin. Await further NAPHTHALENE OPERATOR input which is greatly appreciated. (3) Type 1 diabetes mellitus: Code(s): E10.9 - Type 1 diabetes mellitus without complications Status: Acute Assessment and Plan: Hyperglycemia present without DKA. Pt has a hx of nonadherence to medical therapy. Check A1c. Most recent A1c 10/31/19 11.6. She did not receive lantus last night. Administer 10 units this AM and 20 units HS. Resume regular 30 units HS tomorrow. Add mealtime insulin of 7 units. Continue ACHS glucose monitoring, sliding scale insulin, and hypoglycemia protocol. (4) Diabetes mellitus: Code(s): E11.9 - Type 2 diabetes mellitus without complications Status: Acute Assessment and Plan: Hypergw/ hyperglycemia. Accuchecks, SSI coverage, hypoglycemia protocol. (5) Normocytic anemia: Code(s): D64.9 - Anemia, unspecified Status: Chronic Assessment and Plan: Hb 10.5 and Hct 33.7 at presentation to ED. Microcytic, likely MICHEAL. Check iron studies, vitamin B12, folate. She has no evidence of acute blood loss. Continue to monitor and transfuse PRN to maintain Hb >7. (6) Asthma: Qualifiers: Asthma severity: unspecified severity Asthma persistence: unspecified Asthma complication type: unspecified Qualified Code(s): J45.909 - Unspecified asthma, uncomplicated Code(s): J45.909 - Unspecified asthma, uncomplicated Status: Chronic Assessment and Plan: Continue nebulized bronchodilators PRN. Subjective Date/time seen: 01/04/20 14:46 Patient is a 24 year female with history of type 1 diabetes patient presented emergency department with a complaint right labial abscess patient was seen in ER had I and D data patient was seen by surgery service patient examined and it is superficial abscess recommended to continue present management no surgical intervention is needed, also complains of abdominal pain nausea or vomiting and unable to take her insulin resulting in elevated blood sugar and early sign of DKA however patient is being hydrated symptoms improved however patient is continue to complain abdominal pain nausea and vomiting to further evaluate
[2020-01-04] MEDS: FERROUS SULFATE 324 MG TABLET PO (16:59)
[2020-01-04 18:50] LABS: Glucose Point of Care 221 (65-105)
[2020-01-04] MEDS: ONDANSETRON INJ 4 MG/2 ML VIAL IV PUSH (20:35)
[2020-01-04] MEDS: INSULIN GLARGINE (*BKC) 100 UNITS/ML 30 UNITS SUB-Q (20:40)
[2020-01-04 22:00] VITALS: BP 158/87; PULSE 61; RESP 20; TEMP 36.4; O2SAT 100
[2020-01-04 23:09] LABS: Glucose Point of Care 271 (65-105)
[2020-01-05 00:05] LABS: Vancomycin Trough < 5.0 ug/mL (10.0-20.0)
[2020-01-05] MEDS: METOCLOPRAMIDE HCL INJ 10 MG/2 ML VIAL IV PUSH ×3 (00:27→20:39)
[2020-01-05] MEDS: ONDANSETRON INJ 4 MG/2 ML VIAL IV PUSH (04:52)
[2020-01-05 06:00] VITALS: BP 128/73; PULSE 85; RESP 20; TEMP 36.8; O2SAT 100
[2020-01-05] MEDS: INSULIN ASPART (*BKC) 100 UNITS/ML SUB-Q ×2 (06:02→18:40)
[2020-01-05 06:08] LABS: Glucose Point of Care 202 (65-105)
[2020-01-05] MEDS: SODIUM CHLORIDE 0.9% IV 1,000 ML 125 ML IV CONT (09:22)
[2020-01-05] MEDS: INSULIN ASPART (*BKC) 100 UNITS/ML 6 UNITS SUB-Q ×3 (09:25→18:40)
[2020-01-05] MEDS: FERROUS SULFATE 324 MG TABLET PO ×2 (09:26→09:29)
[2020-01-05 12:57] LABS: Glucose Point of Care 199 (65-105)
[2020-01-05 13:23] LABS: Hematocrit 34.3 % (37.0-47.0); Hemoglobin 11.3 g/dL (12.0-15.0); Mean Corpuscular HGB Conc 32.9 g/dl (32-36); Mean Corpuscular Hemoglobin 23.6 pg (26-34); Mean Corpuscular Volume 71.8 fl (80-100); Mean Platelet Volume 10.3 fl (7.4-10.4); Platelet Count Result 413 k/mm3 (150-375); Red Blood Count 4.78 M/mm3 (4.2-5.4); Red Cell Distribution Width 15.8 % (11.5-14.5); White Blood Count 13.5 K/mm3 (4.5-10.0)
[2020-01-05 13:37] LABS: Alanine Aminotransferase 9 U/L (4-35); Albumin Level 3.7 g/dL (3.5-5.1); Alkaline Phosphatase 99 U/L (38-126); Anion Gap 14 mmol/L (8-16); Aspartate Amino Transferase 17 U/L (14-36); Bilirubin,Total 0.5 mg/dL (0.2-1.3); Blood Urea Nitrogen 4 mg/dL (7-17); Calcium 8.6 mg/dL (8.4-10.2); Carbon Dioxide 18 mmol/L (22-30); Chloride 102 mmol/L (98-107); Estimated CRCL calculation 155 ml/min; Estimated Glomerular Filt Rate > 60; Glucose 217 mg/dL (65-105); Magnesium 1.4 mg/dL (1.6-2.3); Potassium 2.7 mmol/L (3.4-5.0); Sodium 134 mmol/L (137-145)
[2020-01-05 14:00] VITALS: BP 151/91; PULSE 67; RESP 16; TEMP 36.6; O2SAT 100
--- NOTE | 2020-01-05 14:14 | PM.IMPN ---
Progress Note: A&P Assessment and Plan (1) Nausea and vomiting: Qualifiers: Vomiting Intractability: non-intractable Vomiting type: unspecified Qualified Code(s): R11.2 - Nausea with vomiting, unspecified Code(s): R11.2 - Nausea with vomiting, unspecified Status: Acute Assessment and Plan: Resolved. Continue antiemetics PRN nausea. She tolerated CLD. Advance diet as tolerated. 01/05/20 14:14 Patient is a 24 year female with history of type 1 diabetes patient presented emergency department with a complaint right labial abscess patient was seen in ER had I and D, patient was seen by surgery service patient examined and it is superficial abscess recommended to continue present management no surgical intervention is needed, also complains of abdominal pain nausea and vomiting and unable to take her insulin resulting in elevated blood sugar and early sign of DKA however patient is being hydrated symptoms improved however patient is continue to complain abdominal pain nausea and vomiting to further evaluate patient had a ultrasound of abdomen is essentially normal, today patient again continued to complain of abdominal pain nausea and vomiting will add Reglan to her regimen patient is clinically stable will continue to hydrate the patient, antiemetic and pain medication, continue to monitor BMP and further recommendations to follow (2) Skin abscess: Qualifiers: Site of cutaneous abscess: trunk Site of cutaneous abscess of trunk: abdominal wall Qualified Code(s): L02.211 - Cutaneous abscess of abdominal wall Code(s): L02.91 - Cutaneous abscess, unspecified Status: Acute Assessment and Plan: Abscess still present on my exam today (approx 2x2cm) despite prior I&D in ED. I have asked ROSE GRADING SUPERVISOR to see her. Add IV vancomycin and continue IV cefazolin. Await further ROSE GRADING SUPERVISOR input which is greatly appreciated. (3) Type 1 diabetes mellitus: Code(s): E10.9 - Type 1 diabetes mellitus without complications Status: Acute Assessment and Plan: Hyperglycemia present without DKA. Pt has a hx of nonadherence to medical therapy. Check A1c. Most recent A1c 10/31/19 11.6. She did not receive lantus last night. Administer 10 units this AM and 20 units HS. Resume regular 30 units HS tomorrow. Add mealtime insulin of 7 units. Continue ACHS glucose monitoring, sliding scale insulin, and hypoglycemia protocol. (4) Diabetes mellitus: Code(s): E11.9 - Type 2 diabetes mellitus without complications Status: Acute Assessment and Plan: Hypergw/ hyperglycemia. Accuchecks, SSI coverage, hypoglycemia protocol. (5) Normocytic anemia: Code(s): D64.9 - Anemia, unspecified Status: Chronic Assessment and Plan: Hb 10.5 and Hct 33.7 at presentation to ED. Microcytic, likely MICHEAL. Check iron studies, vitamin B12, folate. She has no evidence of acute blood loss. Continue to monitor and transfuse PRN to maintain Hb >7. (6) Asthma: Qualifiers: Asthma severity: unspecified severity Asthma persistence: unspecified Asthma complication type: unspecified Qualified Code(s): J45.909 - Unspecified asthma, uncomplicated Code(s): J45.909 - Unspecified asthma, uncomplicated Status: Chronic Assessment and Plan: Continue nebulized bronchodilators PRN. Subjective Date/time seen: 01/05/20 14:14 Patient is a 24 year female with history of type 1 diabetes patient presented emergency department with a complaint right labial abscess patient was seen in ER had I and D, patient was seen by surgery service patient examined and it is superficial abscess recommended to continue present management no surgical intervention is needed, also complains of abdominal pain nausea and vomiting and unable to take her insulin resulting in elevated blood sugar and early sign of DKA however patient is being hydrated symptom
[2020-01-05] MEDS: MAGNESIUM SULF 2 GM/WATER 50ML 2 GM/50 ML BAG IVPB (15:00)
[2020-01-05 16:53] LABS: Glucose Point of Care 203 (65-105)
[2020-01-05] MEDS: MAGNESIUM OXIDE 400 MG TABLET PO (18:39)
[2020-01-05] MEDS: POTASSIUM CHLORIDE 20 MEQ PACKET (FOR LIQUID) 40 MEQ PO (18:41)
[2020-01-05] MEDS: INSULIN GLARGINE (*BKC) 100 UNITS/ML 30 UNITS SUB-Q (20:39)
[2020-01-05 20:45] LABS: Glucose Point of Care 460 (65-105)
[2020-01-05] MEDS: INSULIN ASPART (*BKC) 100 UNITS/ML 8 UNITS SUB-Q (20:49)
[2020-01-05 22:00] VITALS: BP 156/94; PULSE 87; RESP 20; TEMP 36.8; O2SAT 100
--- NOTE | 2020-01-05 22:13 | PC.NURSE ---
Patient had critical potassium at 13:14 01/05/20. K-rider was ordered on days but patient was not able to tolerate so she refused K-rider. PO potassium was ordered. I came on shift at 7pm and potassium po was still sitting on her bedside table. I stressed the importance of drinking the rest of the potassium. Patient refused and raised her voice stated I'm not going to drink it until I feel better It's nasty Patient also refused redraw for stat potassium level. Dr. Robertson notified.
[2020-01-06] MEDS: ONDANSETRON INJ 4 MG/2 ML VIAL IV PUSH (00:56)
--- NOTE | 2020-01-06 01:25 | PC.NURSE ---
Addendum entered by Judith Long RN 01/06/20 01:35: Patient has not reported and nurse has not witnessed anymore episodes of vomiting. Original Note: Patient refused 0000 antibiotic PO. Patient stated why would I take something by mouth if I just keep throwing up This nurse witnessed one episode of emesis at approximately 2000. Patient has reported and nurse has not witnessed anymore episodes of vomiting. Tried to educate the patient on importance of taking medication. Patient talked over the nurse and raised her voice. Refused to listen to the nurse's education. Refused medication. Called to inform Dr. Robertson
[2020-01-06] MEDS: SODIUM CHLORIDE 0.9% IV 1,000 ML 125 ML IV CONT (05:44)
[2020-01-06] MEDS: CEPHALEXIN 500 MG CAPSULE PO ×2 (05:44→13:05)
[2020-01-06] MEDS: METOCLOPRAMIDE HCL INJ 10 MG/2 ML VIAL IV PUSH (05:49)
[2020-01-06 06:00] VITALS: BP 132/78; PULSE 100; RESP 20; TEMP 36.6; O2SAT 100
[2020-01-06 06:54] LABS: Glucose Point of Care 124 (65-105)
[2020-01-06 08:43] LABS: Glucose Point of Care 169 (65-105)
[2020-01-06 09:18] LABS: Hematocrit 35.8 % (37.0-47.0); Hemoglobin 11.3 g/dL (12.0-15.0); Mean Corpuscular HGB Conc 31.6 g/dl (32-36); Mean Corpuscular Hemoglobin 23.3 pg (26-34); Mean Corpuscular Volume 73.7 fl (80-100); Mean Platelet Volume 10.1 fl (7.4-10.4); Platelet Count Result 406 k/mm3 (150-375); Red Blood Count 4.86 M/mm3 (4.2-5.4); Red Cell Distribution Width 16.4 % (11.5-14.5); White Blood Count 8.8 K/mm3 (4.5-10.0)
[2020-01-06] MEDS: MAGNESIUM OXIDE 400 MG TABLET PO (09:44)
[2020-01-06 09:50] LABS: Anion Gap 9 mmol/L (8-16); Blood Urea Nitrogen 4 mg/dL (7-17); Calcium 8.4 mg/dL (8.4-10.2); Carbon Dioxide 25 mmol/L (22-30); Chloride 100 mmol/L (98-107); Estimated CRCL calculation 114 ml/min; Estimated Glomerular Filt Rate > 60; Glucose 226 mg/dL (65-105); Potassium 2.6 mmol/L (3.4-5.0); Sodium 134 mmol/L (137-145)
[2020-01-06] MEDS: INSULIN ASPART (*BKC) 100 UNITS/ML 6 UNITS SUB-Q ×2 (10:26→13:06)
[2020-01-06] MEDS: POTASSIUM CHLORIDE 20 MEQ PACKET (FOR LIQUID) 40 MEQ PO (10:29)
[2020-01-06 13:02] LABS: Glucose Point of Care 254 (65-105)
[2020-01-06] MEDS: INSULIN ASPART (*BKC) 100 UNITS/ML SUB-Q (13:06)
[2020-01-06 14:00] VITALS: BP 132/89; PULSE 89; RESP 16; TEMP 36.2; O2SAT 100
--- NOTE | 2020-01-06 14:40 | PC.NURSE ---
I entered the patient's room to check on her IV pump. When I entered the room, I observed the patient crying. The patient stated that she wanted to leave right now. I immediately called and notified Dr. Hernandez. Dr. Hernandez came to see the patient and reported that she wished to sign out AMA. I discussed the risks of signing out AMA, but the patient still wished to leave. I removed the patient's IV and she signed the AMA paperwork. The patient left at 1435.
--- NOTE | 2020-01-06 16:45 | P.DS_ITS ---
DS: Admitting Diagnosis Admitting Diagnosis Admitting Diagnosis: Intractable nausea and vomiting, Patient left AMA DS: Summary Time Spent with Patient Time attestation: Total time spent providing and/or coordinating discharge services: DS: Data Data Completed and Pending Labs on day of discharge: Labs from last 24 hours 01/06/20 01/06/20 01/06/20 12:56 09:09 09:09 WBC RBC Hgb Hct MCV MCH MCHC RDW Plt Count MPV Sodium 134 L Potassium 2.6 L* Chloride 100 Carbon Dioxide 25 Anion Gap 9 BUN 4 L Creatinine 0.70 Estim Creat Clear Calc 114 Estimated GFR > 60 Glucose 226 H POC Capillary Glucose 254 H Calcium 8.4 Magnesium 2.0 01/06/20 01/06/20 01/06/20 09:09 09:09 08:35 WBC 8.8 RBC 4.86 Hgb 11.3 L Hct 35.8 L MCV 73.7 L MCH 23.3 L MCHC 31.6 L RDW 16.4 H Plt Count 406 H MPV 10.1 Sodium Potassium Chloride Carbon Dioxide Anion Gap BUN Creatinine Cancelled Estim Creat Clear Calc Cancelled Estimated GFR Cancelled Glucose POC Capillary Glucose 169 H Calcium Magnesium 01/06/20 01/05/20 01/05/20 05:40 20:23 16:51 WBC RBC Hgb Hct MCV MCH MCHC RDW Plt Count MPV Sodium Potassium Chloride Carbon Dioxide Anion Gap BUN Creatinine Estim Creat Clear Calc Estimated GFR Glucose POC Capillary Glucose 124 H 460 H 203 H Calcium Magnesium Discharge Plan Discharge Consulting providers: Endy Will ; Ana Bowling Patient Disposition: Left Against Medical Advice Discharge Instructions: Per Care Coordination: Patient to follow up with [facility] clinic in [place] with Luci Medeiros 01/13 at 1:30p for a phone initial appointment. They will call patient. Patient Instructions: Antibiotic Form, Hypokalemia (DC), Acute Nausea and Vomiting (DC), Abscess Incision and Drainage (DC) Stand Alone Forms: General Discharge Information Discharge Medications: No Action insulin lispro [Humalog U-100 Insulin] 100 unit/mL Solution 6 unit subcut TIDWMEAL RF: 0 Lantus U-100 Insulin 30 unit subcut HS Qty: 0 RF: 0 ondansetron HCl [Zofran] 4 mg tablet 4 mg PO Q8H Qty: 14 RF: 0 Lantus U-100 Insulin 100 unit/mL solution 30 unit SUB-Q .Nightly 30 Days Qty: 10 RF: 0 insulin lispro [Humalog U-100 Insulin] 100 unit/mL solution 8 unit SUB-Q TID 30 Days Qty: 7.2 RF: 0 Date of admission: 01/04/20 14:02 Primary Care Provider: PHYSICIAN,BENDING ROLL OPERATOR Admitting Provider: Gordon Robertson Discharge Date/Time: 01/06/20 14:35 Attending physician on admission: Mike Hernandez Condition: Stable Quality VTE Prophylaxis VTE prophylaxis: mechanical ordered
[2020-01-08 06:32] LABS: Osmolality, Urine 636 mOsm/kg (50-1200)
[2020-01-10 18:57] LABS: Chloride Rand Ur 44 mmol/L (32-290); Chloride/Creatinine Rand Ur 54 (38-318); Creatinine Random Urine 82 mg/dL (20-275)
--- NOTE | 2020-03-08 17:09 | PM.DS ---
DS: Admitting Diagnosis Admitting Diagnosis Admitting Diagnosis: Intractable nausea and vomiting, DS: Discharge Diagnosis Discharge Diagnosis (1) Nausea and vomiting: Qualifiers: Vomiting Intractability: non-intractable Vomiting type: unspecified Qualified Code(s): R11.2 - Nausea with vomiting, unspecified Code(s): R11.2 - Nausea with vomiting, unspecified Status: Acute Assessment and Plan: Resolved. Continue antiemetics PRN nausea. She tolerated CLD. Advance diet as tolerated. 01/05/20 14:14 Patient is a 24 year female with history of type 1 diabetes patient presented emergency department with a complaint right labial abscess patient was seen in ER had I and D, patient was seen by surgery service patient examined and it is superficial abscess recommended to continue present management no surgical intervention is needed, also complains of abdominal pain nausea and vomiting and unable to take her insulin resulting in elevated blood sugar and early sign of DKA however patient is being hydrated symptoms improved however patient is continue to complain abdominal pain nausea and vomiting to further evaluate patient had a ultrasound of abdomen is essentially normal, today patient again continued to complain of abdominal pain nausea and vomiting will add Reglan to her regimen patient is clinically stable will continue to hydrate the patient, antiemetic and pain medication, continue to monitor BMP and further recommendations to follow (2) Skin abscess: Qualifiers: Site of cutaneous abscess: trunk Site of cutaneous abscess of trunk: abdominal wall Qualified Code(s): L02.211 - Cutaneous abscess of abdominal wall Code(s): L02.91 - Cutaneous abscess, unspecified Status: Acute Assessment and Plan: Abscess still present on my exam today (approx 2x2cm) despite prior I&D in ED. I have asked DIGITAL PRESS OPERATOR to see her. Add IV vancomycin and continue IV cefazolin. Await further DIGITAL PRESS OPERATOR input which is greatly appreciated. (3) Type 1 diabetes mellitus: Qualifiers: Diabetes mellitus complication status: with hyperglycemia Qualified Code(s): E10.65 - Type 1 diabetes mellitus with hyperglycemia Code(s): E10.9 - Type 1 diabetes mellitus without complications Status: Acute Assessment and Plan: Hyperglycemia present without DKA. Pt has a hx of nonadherence to medical therapy. Check A1c. Most recent A1c 10/31/19 11.6. She did not receive lantus last night. Administer 10 units this AM and 20 units HS. Resume regular 30 units HS tomorrow. Add mealtime insulin of 7 units. Continue ACHS glucose monitoring, sliding scale insulin, and hypoglycemia protocol. (4) Diabetes mellitus: Code(s): E11.9 - Type 2 diabetes mellitus without complications Status: Acute Assessment and Plan: Hypergw/ hyperglycemia. Accuchecks, SSI coverage, hypoglycemia protocol. (5) Normocytic anemia: Code(s): D64.9 - Anemia, unspecified Status: Chronic Assessment and Plan: Hb 10.5 and Hct 33.7 at presentation to ED. Microcytic, likely MICHEAL. Check iron studies, vitamin B12, folate. She has no evidence of acute blood loss. Continue to monitor and transfuse PRN to maintain Hb >7. (6) Asthma: Qualifiers: Asthma severity: unspecified severity Asthma persistence: unspecified Asthma complication type: unspecified Qualified Code(s): J45.909 - Unspecified asthma, uncomplicated Code(s): J45.909 - Unspecified asthma, uncomplicated Status: Chronic Assessment and Plan: Continue nebulized bronchodilators PRN. DS: Summary Hospital Course Reason for hospitalization: Chief complaint: dka Narrative: Marianne Fofana is a 24 year old female Who has a history of insulin-dependent diabetes. The patient stated she has not taken her insulin for 3 days because she has been having nausea and vomiting. The patient came into t
== END 2020-01-06 14:35 | disposition left against medical advice (07) | DRG 518 ==
LOC: ANHED 23:07 → ANH3MEDSUR 23:35
PROVIDERS: Physician Assistant; Admitting Provider Family Medicine; Emergency Provider Emergency Medicine; Visit Provider Family Medicine
DX: N76.4 Abscess of vulva (principal); E10.65 Type 1 diabetes mellitus with hyperglycemia; D64.9 Anemia, unspecified; J45.909 Unspecified asthma, uncomplicated
CPT/HCPCS: 36415; 36600; 74177; 76700; 80048; 80053; 80202; 81001; 81025; 82010; 82436; 82570; 82728; 82805; 82948; 83036; 83540; 83550; 83690; 83735; 83935; 84100; 84133; 84300; 84466; 85025; 85027; 96361; 96365; 96366; 96368; 96374; 96375; 99285; A9270; G0378; G0379; J0360; J0690; J1815; J2405; J2550; J2765; J3370; J3475; J3480; J7030; Q9967

== ENCOUNTER 2020-02-01 14:02 | Inpatient (IN) | payer OTHER, SELFPAY ==
[2020-02-01] VITALS (8 sets, daily range): BP systolic 97–153; BP diastolic 51–80; PULSE 78–118; RESP 18–23; TEMP 36.4; O2SAT 99–100; BMI 31.8
--- NOTE | ~2020-02-01 | CT_ITS ---
EXAMINATION: CT abdomen pelvis wo con DATE: 02/01/2020 16:47 INDICATION: Abdominal pain. Nausea and vomiting. TECHNIQUE: Computed tomography (CT) of the abdomen and pelvis was performed without intravenous contr ast. Automated exposure control and iterative reconstruction technique were employed. Exam dose: 445 .32 mGy-cm total exam DLP. COMPARISON: 01/02/2020 CT abdomen pelvis with IV contrast material FINDINGS: The lung bases are clear. Heart normal heart size. No pericardial or pleural effusion. No hepatic, splenic, pancreatic, adrenal or renal space-occupying mass lesion is detected. No bile du ct or pancreatic duct dilatation. No urinary tract calculus or hydroureteronephrosis. Normal caliber of the abdominal aorta. No intraperitoneal or retroperitoneal or pelvic mass lesion or adenopathy or ascites. There is a moderately prominent amount fecal material in the rectum and colon. No bowel obstruction o r intraperitoneal free air is detected. Normal appendix. The uterus, adnexal areas and urinary bladder are unremarkable. Interval resolution of small abscess and surrounding inflammation of the right labia major since 01/01. IMPRESSION: Resolution of probable infection of right labia major since 01/02/2020 Reviewed, dictated and finalized at [facility] Reviewed, dictated and finalized at [facility]. IMPRESSION: Resolution of probable infection of right labia major since 020
--- NOTE | 2020-02-01 14:18 | PC.NURSE ---
UNABLE TO DRAW LABS AT THIS TIME. PT REQUEST ULTRASOUND IV.
[2020-02-01 14:44] LABS: Alveolar/Arterial O2 Gradient 20.7 mmHg; Base Excess ABG -11.2 mEq/l (+/-2.0); Carboxyhemoglobin 0.5 % THb (0-2.0); Fractional Inspired Oxygen 21 %; HCO3 ABG 10.2 mEq/l (22.0-26.0); Methemoglobin ABG 0.3 %THb (0-1.5); Oxygen Content ABG 17.2 %vol (16.0-22.0); Oxygen Saturation ABG 98.3 % (95.0-100.0); Oxyhemoglobin 97.1 % THb (90.0-100.0); PO2 ABG 110.6 mmHg (80.0-100.0); PO2 FiO2 Ratio Arterial Blood 5.27 %; Reduced Hemoglobin 2.1 %THb (0-5.0); Total Hemoglobin 12.5 g/dL (12.0-18.0)
[2020-02-01 14:45] LABS: Device ROOM AIR; Modified Allen's Test Pass; PCO2 ABG 15.4 mmHg (35.0-45.0); Site Drawn RIGHT RADIAL
[2020-02-01 14:54] LABS: Glucose Point of Care 432 (65-105)
[2020-02-01] MEDS: SODIUM CHLORIDE 0.9% IV 1,000 ML 999 ML IV CONT ×2 (15:09→15:49)
--- NOTE | 2020-02-01 15:09 | ED.NAVMDI ---
HPI - Nausea/Vomiting/Diarrhea General Chief complaint: Nausea/Vomiting/Diarrhea <Griselda Gutierrez PA-C - Last Filed: 02/01/20 20:43> Stated complaint: throwing up nonstop since last night <Griselda Gutierrez PA-C - Last Filed: 02/01/20 20:43> Time Seen by Provider: 02/01/20 14:49 <MICKY Cabral Last Filed: 02/01/20 20:43> Source: patient <MICKY Cabral Last Filed: 02/01/20 20:43> Mode of arrival: ambulatory <MICKY Cabral Last Filed: 02/01/20 20:43> Limitations: no limitations <MICKY Cabral Last Filed: 02/01/20 20:43> History of Present Illness HPI Narrative: This is a 24 year old female that presents to the ER for nausea and vomiting since last night. Reports she is diabetic and she has been out of her insulin for over a month. Reports some crampy abdominal pain. Denies fever, cough, or dysuria. <MICKY Cabral Last Filed: 02/01/20 20:43> Related Data Home medications: Home Medications Medication Instructions Recorded Confirmed No Home Medications 02/01/20 02/01/20 <MICKY Cabral Last Filed: 02/01/20 20:43> Allergies/Adverse reactions: Allergies Allergy/AdvReac Type Severity Reaction Status Date / Time banana Allergy Unknown makes Verified 02/01/20 15:21 mouth swell, couldn't breath <MICKY Cabral Last Filed: 02/01/20 20:43> Review of Systems Review of Systems: Narrative: CONSTITUTIONAL: Denies fever CARDIOVASCULAR: Denies chest pain RESPIRATORY: Denies cough or dyspnea. GASTROINTESTINAL: Reports abdominal pain, nausea, vomiting GENITOURINARY: Denies dysuria or hematuria. <MICKY Cabral Last Filed: 02/01/20 20:43> All systems reviewed & are unremarkable except as noted in HPI and below <Griselda Gutierrez PA-C - Last Filed: 02/01/20 20:43> [facility] Past Medical History Medical History: Medical History (Updated 02/01/20 @ 20:43 by Griselda Gutierrez PA-C) Asthma Diabetes mellitus <Griselda Gutierrez PA-C - Last Filed: 02/01/20 20:43> Surgical History Surgical History: Surgical History No pertinent past surgical history <Griselda Gutierrez PA-C - Last Filed: 02/01/20 20:43> Social History Social History: Social History Smoking status: Current every day smoker Second hand tobacco smoke exposure: No Alcohol intake: unknown Drinks per week: 4 Substance use: unknown Substance use type: marijuana Other substance usage details: Patient refuses to answer questions. Gender identity (if verbalized by the patient): Female Spiritual care concerns: No <Griselda Gutierrez PA-C - Last Filed: 02/01/20 20:43> Exam Narrative: Exam Narrative: GENERAL: Drowsy, well-nourished, and in no acute distress. HEAD: Normocephalic, atraumatic. EYES: EOMI. ENT: Nares clear, no rhinorrhea or epistaxis. Mucous membranes moist. Oropharynx without tonsillar hypertrophy exudate or other lesions. NECK: Supple. No adenopathy or masses CHEST: Clear to auscultation. No respiratory distress. No wheezes rales or rhonchi HEART: Regular rate and rhythm. No murmur heard. Normal peripheral pulses. ABDOMEN: Soft, nontender, nondistended, normal active bowel sounds. EXTREMITIES: Normal range of motion. No edema. SKIN: Warm, dry, no rash. NEURO: No focal deficits. Alert and oriented x3. PSYCH: Normal mood and affect <Griselda Gutierrez PA-C - Last Filed: 02/01/20 20:43> Course PRINT PRODUCTION MANAGER/PA Physician Supervision Patient presented via EMS for nausea, vomiting, has been out of her insulin medication over the past month and a half. Glucose levels have been running quite high. Exam today consistent with DKA. Patient was given IV fluids, placed on insulin infusion. Patient will be admitted to the ICU. For this patient encounter, I reviewed the PRINT PRODUCTION MANAGER or PA document
[2020-02-01 15:10] LABS: Basophils Percent Auto 0.1 % (0.2-1.2); Hematocrit 39.7 % (37.0-47.0); Hemoglobin 12.3 g/dL (12.0-15.0); Immature Granulocyte Absolute 0.07 K/mm3 (0.00-0.031); Immature Granulocyte Percent A 0.4 % (0-0.5); Lymphocytes Absolute Auto 1.06 K/mm3 (0.9-3.2); Lymphocytes Percent Auto 6.5 % (18.3-44.2); Mean Corpuscular Hemoglobin 23.1 pg (26-34); Mean Corpuscular Volume 74.5 fl (80-100); Mean Platelet Volume 10.4 fl (7.4-10.4); Monocytes Absolute Auto 0.4 K/mm3 (0.1-0.6); Monocytes Percent Auto 2.7 % (2.6-8.5); Neutrophils Absolute Auto 14.7 K/mm3 (1.3-6.7); Neutrophils Percent Auto 90.3 % (45.5-73.1); Platelet Count Result 363 k/mm3 (150-375); Red Blood Count 5.33 M/mm3 (4.2-5.4); Red Cell Distribution Width 17.7 % (11.5-14.5); White Blood Count 16.3 K/mm3 (4.5-10.0)
[2020-02-01] MEDS: INSULIN HUMAN REGULAR (*BKC) 100 UNITS/ML 9 UNITS IV PUSH (15:12)
[2020-02-01 15:14] LABS: Add Urine Microscopic? YES; Appearance Urine Clear (Clear); Bilirubin Urine Negative (Negative); Blood Urine Negative (Negative); Color Urine Straw (Yellow); Glucose Urine UA 3+ mg/dL (Negative); Ketones Urine 2+ mg/dL (Negative); Leukocyte Esterase Ur Negative LEU/UL (Negative); Nitrate Urine Negative (Negative); Protein Urine 1+ mg/dL (Negative); RBC Urine 0-2 /hpf (0-2); Squamous Epithelial Cell Urine Occasional /hpf (Few); Urobilinogen Urine Negative mg/dL (<2.0); WBC Urine 0-3 /hpf
[2020-02-01 15:19] LABS: Specific Grav Ur 1.031 (1.001-1.035)
[2020-02-01 15:36] LABS: Alanine Aminotransferase 11 U/L (4-35); Albumin Level 4.8 g/dL (3.5-5.1); Alkaline Phosphatase 116 U/L (38-126); Anion Gap 24 mmol/L (8-16); Aspartate Amino Transferase 23 U/L (14-36); Bilirubin,Total 0.8 mg/dL (0.2-1.3); Blood Urea Nitrogen 10 mg/dL (7-17); Calcium 10.2 mg/dL (8.4-10.2); Carbon Dioxide 11 mmol/L (22-30); Chloride 103 mmol/L (98-107); Estimated CRCL calculation 127 ml/min; Estimated Glomerular Filt Rate > 60; Glucose 347 mg/dL (65-105); Lipase 47 U/L (23-300); Magnesium 1.9 mg/dL (1.6-2.3); Phosphorus 4.8 mg/dL (2.5-4.5); Potassium 4.6 mmol/L (3.4-5.0); Sodium 138 mmol/L (137-145)
--- NOTE | 2020-02-01 15:48 | PC.NURSE ---
Pt difficult stick, verbal order from FALGUNI Gutierrez and Dr Rey that it is ok to place IV in pt foot. Pt agrees with plan.
[2020-02-01 16:26] LABS: Glucose Point of Care 249 (65-105)
[2020-02-01 17:57] LABS: Glucose Point of Care 325 (65-105)
[2020-02-01] MEDS: INSULIN HUMAN REGULAR (*BKC) 100 UNITS in SODIUM CHLORIDE 0.9% IV 99 ML 5.3 UNITS IV CONT (18:10)
[2020-02-01] MEDS: LACTATED RINGERS 1,000 ML 999 ML IV CONT (18:15)
[2020-02-01 19:11] LABS: Glucose Point of Care 271 (65-105)
--- NOTE | 2020-02-01 19:13 | PC.NURSE ---
Report given to Gay Kevin at this time. Pt resting in bed, blood glucose rechecked and insulin drip adjusted.
[2020-02-01 20:16] LABS: Glucose Point of Care 207 (65-105)
--- NOTE | 2020-02-01 20:22 | PM.IMHP ---
H&P: HPI History of Present Illness Date/Time: 02/01/20 20:22 Chief complaint: DKA Narrative: This is a 24 year old insulin dependent diabetic female who is well known to me from multiple recent admissions for acute DKA and who returned to the hospital tonight with a complaint of nausea, vomiting, and abdominal discomfort since last night. She admits that she hasn't followed up with her doctor since her discharge last month and hasn't had any insulin as she says she was not sent home with insulin. Tonight she denies any fevers, chills, cough, shortness of breath, chest pain, palpitations, dysuria, hematuria, LE swelling, or open wounds. During her previous hospitalization the patient had a skin abscess which has healed well. On arrival to the ER the patient was evaluated and again found to be in acute DKA with an increased anion gap of 24, hyperglycemia with blood glucose of 413 mg/dl, and positive serum ketones of 5.8. The patient has been started on IV Insulin and Avionics Systems Engineer has been consulted. She is currently receiving a NS IV Bolus. She has no other complaints. Review of Systems Review of Systems: All systems reviewed & are unremarkable except as noted in HPI and below PMFSH Past Medical History Medical History Asthma Diabetes mellitus Surgical History Surgical History No pertinent past surgical history Social History Social History Smoking packs per day: 0.5 Smoking cigarettes per day: 10.0 Smoking status: Heavy tobacco smoker Tobacco type: cigarettes Second hand tobacco smoke exposure: Yes Alcohol intake: current Drinks per week: 4 Substance use: current Substance use type: marijuana Other substance usage details: less than one drink a week Last use: 01/31/20 Gender identity (if verbalized by the patient): Female Spiritual care concerns: No Meds Home Medications and Allergies Home Medications Medication Instructions Recorded Confirmed Type No Home Medications 02/01/20 02/01/20 History Allergies Allergy/AdvReac Type Severity Reaction Status Date / Time banana Allergy Unknown makes Verified 02/01/20 15:21 mouth swell, couldn't breath Vital Signs Vital Signs - 24 hr 02/01/20 14:11 02/01/20 17:04 02/01/20 17:47 Temperature 36.4 C L Pulse Rate 118 H 94 105 H Respiratory Rate 20 18 18 Blood Pressure 153/80 H 113/55 L 111/51 L Pulse Oximetry 100 100 100 02/01/20 18:28 Temperature Pulse Rate 78 Respiratory Rate 18 Blood Pressure 122/66 Pulse Oximetry 100 Exam Const: General: cooperative, alert, awake and acute distress mild Nutritional Appearance: obese morbidly obese Orientation/consciousness: patient oriented x3 HENMT: Head: normal to inspection General nose exam: Normal external nose present Face and sinus: normal facial exam Mouth: Yes Normal oral and palatal mucosa present and Yes oropharynx normal Eyes: Pupils: Equal, round and reactive pupils present EOM: EOMs intact bilaterally Neck: Neck: supple and no JVD Thyroid: thyroid normal Lymphatic: lymphadenopathy not noted Resp: Effort & Inspection: tachypneic Auscultation: clear to auscultation bilaterally Cardio: Rate: regular rate Rhythm: regular rhythm Heart sounds: no murmurs GI: Inspection: normal to inspection Auscultation: normal bowel sounds Skin: General skin exam: normal color and no rashes or lesions noted Neuro: General: patient oriented x3 Cranial nerves: Yes CN's II-XII intact bilaterally and Yes Equal, round and reactive pupils present Speech: normal speech Motor exam (neuro): 5/5 motor strength present throughout Sensory Exam: normal sensation Extrem: General: normal to inspection and no edema Psych: Mental Status: mental status grossly normal Affect: normal affect
--- NOTE | 2020-02-01 21:00 | PC.NURSE ---
Called Dr Robertson and made aware that patient has IV in foot for insulin drip. Dr Robertson OK with IV placement at this time.
[2020-02-01 21:32] LABS: Glucose Point of Care 184 (65-105)
[2020-02-01 21:50] LABS: Glucose Point of Care 194 (65-105)
[2020-02-01 21:54] LABS: Anion Gap 8 mmol/L (8-16); Blood Urea Nitrogen 11 mg/dL (7-17); Calcium 8.7 mg/dL (8.4-10.2); Carbon Dioxide 20 mmol/L (22-30); Chloride 107 mmol/L (98-107); Estimated CRCL calculation 149 ml/min; Estimated Glomerular Filt Rate > 60; Glucose 199 mg/dL (65-105); Potassium 3.3 mmol/L (3.4-5.0); Sodium 135 mmol/L (137-145)
[2020-02-01] MEDS: KCL 20 MEQ/D5/0.45% SOD CHL 1,000 ML 150 ML IV CONT (23:00)
[2020-02-01 23:08] LABS: Glucose Point of Care 136 (65-105)
[2020-02-01 23:55] LABS: Glucose Point of Care 158 (65-105)
[2020-02-02] VITALS (10 sets, daily range): BP systolic 105–163; BP diastolic 71–107; PULSE 64–104; RESP 13–24; TEMP 36.3–37.4; O2SAT 97–100
--- NOTE | 2020-02-02 00:37 | ADMIMU ---
This patient, Marianne Fofana, was admitted to IMU status, and placed in Intensive Care Unit-8 02/01/20 [id number]. Patient/family oriented to hospital policies and general routines including ID bracelet, bed and alarms, visiting hours, pain management, procedures, bathroom and other care routines, personal items, smoking policy, room service/diet, and visiting hours. Valuables list has been completed. Information on how to activate the Rapid Response Team has been discussed. Patient/Family are encouraged to report perceived risks to care and to ask questions if they do not understand what they are told or what they should do.
[2020-02-02] MEDS: ONDANSETRON INJ 4 MG/2 ML VIAL (00:43)
[2020-02-02 01:16] LABS: Glucose Point of Care 160 (65-105)
[2020-02-02 01:34] LABS: Anion Gap 12 mmol/L (8-16); Blood Urea Nitrogen 11 mg/dL (7-17); Calcium 9.4 mg/dL (8.4-10.2); Carbon Dioxide 15 mmol/L (22-30); Chloride 111 mmol/L (98-107); Estimated CRCL calculation 145 ml/min; Estimated Glomerular Filt Rate > 60; Glucose 159 mg/dL (65-105); Potassium 3.9 mmol/L (3.4-5.0); Sodium 138 mmol/L (137-145)
[2020-02-02 02:07] LABS: Glucose Point of Care 132 (65-105)
[2020-02-02 03:06] LABS: Glucose Point of Care 177 (65-105)
[2020-02-02] MEDS: PROMETHAZINE HCL 25 MG/ML AMPUL IM (03:17)
--- NOTE | 2020-02-02 03:45 | PC.NURSE ---
Report given to Tabitha wood who is taking over care.
[2020-02-02 04:01] LABS: Glucose Point of Care 164 (65-105)
[2020-02-02 05:06] LABS: Glucose Point of Care 171 (65-105)
[2020-02-02] MEDS: KCL 20 MEQ/D5/0.45% SOD CHL 1,000 ML 150 ML IV CONT (05:59)
[2020-02-02 06:02] LABS: Glucose Point of Care 170 (65-105)
[2020-02-02 06:57] LABS: Basophils Percent Auto 0.1 % (0.2-1.2); Hematocrit 32.7 % (37.0-47.0); Hemoglobin 10.2 g/dL (12.0-15.0); Immature Granulocyte Absolute 0.08 K/mm3 (0.00-0.031); Immature Granulocyte Percent A 0.6 % (0-0.5); Lymphocytes Absolute Auto 2.01 K/mm3 (0.9-3.2); Lymphocytes Percent Auto 14.7 % (18.3-44.2); Mean Corpuscular HGB Conc 31.2 g/dl (32-36); Mean Corpuscular Hemoglobin 22.7 pg (26-34); Mean Corpuscular Volume 72.7 fl (80-100); Mean Platelet Volume 10.7 fl (7.4-10.4); Monocytes Absolute Auto 0.8 K/mm3 (0.1-0.6); Monocytes Percent Auto 5.9 % (2.6-8.5); Neutrophils Absolute Auto 10.8 K/mm3 (1.3-6.7); Neutrophils Percent Auto 78.7 % (45.5-73.1); Platelet Count Result 355 k/mm3 (150-375); Red Cell Distribution Width 16.8 % (11.5-14.5); White Blood Count 13.7 K/mm3 (4.5-10.0)
[2020-02-02 07:05] LABS: Glucose Point of Care 164 (65-105)
[2020-02-02 07:07] LABS: Anion Gap 10 mmol/L (8-16); Blood Urea Nitrogen 10 mg/dL (7-17); Calcium 8.7 mg/dL (8.4-10.2); Carbon Dioxide 19 mmol/L (22-30); Chloride 107 mmol/L (98-107); Estimated CRCL calculation 176 ml/min; Estimated Glomerular Filt Rate > 60; Glucose 187 mg/dL (65-105); Potassium 3.7 mmol/L (3.4-5.0); Sodium 136 mmol/L (137-145)
[2020-02-02 08:08] LABS: Glucose Point of Care 196 (65-105)
[2020-02-02 09:42] LABS: Glucose Point of Care 167 (65-105)
[2020-02-02] MEDS: ONDANSETRON INJ 4 MG/2 ML VIAL IV PUSH ×2 (09:55→20:52)
--- NOTE | 2020-02-02 10:07 | WPDCNINT ---
Assessment and Plan Assessment and plan (1) DKA (diabetic ketoacidoses): Qualifiers: Diabetes mellitus complication detail: without coma Diabetes mellitus type: type 1 Qualified Code(s): E10.10 - Type 1 diabetes mellitus with ketoacidosis without coma Code(s): E11.10 - Type 2 diabetes mellitus with ketoacidosis without coma Status: Acute Assessment and Plan: admitted with DKA and started on IV fluids and insulin drip anion gap appears to have closed down will give 30 units of Lantus now and transition to subcutaneous insulin change IV fluids to normal saline until p.o. intake is at baseline (2) Dehydration: Code(s): E86.0 - Dehydration Status: Acute Assessment and Plan: improved with IV fluids continue (3) Leukocytosis: Qualifiers: Leukocytosis type: unspecified Qualified Code(s): D72.829 - Elevated white blood cell count, unspecified Code(s): D72.829 - Elevated white blood cell count, unspecified Status: Acute Assessment and Plan: Likely secondary to DKA and retching. improving no evident source of infection. her urine, CT abdomen pelvis and lung bases on CT abdomen were clear (4) Nausea & vomiting: Qualifiers: Vomiting Intractability: non-intractable Vomiting type: unspecified Qualified Code(s): R11.2 - Nausea with vomiting, unspecified Code(s): R11.2 - Nausea with vomiting, unspecified Status: Acute Assessment and Plan: p.r.n. antiemetic Additional Plan DVT prophylaxis - SCDs Nutrition - advance diet Code Status - Full Code Transfer out of ICU today Parts Technician Consult Note Consult date: 02/02/20 Time Seen: 09:45 HPI: Marianne Fofana is a 24 year old female insulin dependent diabetes and noncompliance who is well known to to the hospital due to multiple recent admissions for acute DKA and returned to the hospital yesterday with a complaint of nausea, vomiting, and abdominal discomfort since last night. patient was not taking any insulin and stated that she has been out of her insulin for last 1 and half months.. In ED patient was found to be in DKA and dehydrated. she was started on IV fluids, insulin infusion and admitted to ICU for further management. this morning patient feels better but still has nausea but no other complaints at this time. Review of system for all other system was reviewed and was negative Review of Systems Review of Systems: All systems reviewed & are unremarkable except as noted in HPI and below (HPI) PMFSH Past Medical History Medical History Asthma Diabetes mellitus Surgical History Surgical History No pertinent past surgical history Social History Social History Smoking packs per day: 0.5 Smoking cigarettes per day: 10.0 Smoking status: Heavy tobacco smoker Tobacco type: cigarettes Second hand tobacco smoke exposure: Yes Alcohol intake: current Drinks per week: 4 Substance use: current Substance use type: marijuana Other substance usage details: less than one drink a week Last use: 01/31/20 Gender identity (if verbalized by the patient): Female Spiritual care concerns: No Meds Home Medications and Allergies Home Medications Medication Instructions Recorded Confirmed Type No Home Medications 02/01/20 02/01/20 History Allergies Allergy/AdvReac Type Severity Reaction Status Date / Time banana Allergy Unknown makes Verified 02/01/20 15:21 mouth swell, couldn't breath Vital Signs Vital Signs - 24 hr 02/01/20 14:11 02/01/20 17:04 02/01/20 17:47 Temperature 36.4 C L Pulse Rate 118 H 94 105 H Respiratory Rate 20 18 18 Blood Pressure 153/80 H 113/55 L 111/51 L Pulse Oximetry 100 100 100 02/01/20
--- NOTE | 2020-02-02 10:17 | PM.IMPN ---
Progress Note: A&P Assessment and Plan (1) DKA (diabetic ketoacidoses): Qualifiers: Diabetes mellitus complication detail: without coma Diabetes mellitus type: type 1 Qualified Code(s): E10.10 - Type 1 diabetes mellitus with ketoacidosis without coma Code(s): E11.10 - Type 2 diabetes mellitus with ketoacidosis without coma Status: Acute Assessment and Plan: Anion gap resolved Tolerating PO intake 02/01 to medical floor (2) Nausea & vomiting: Qualifiers: Vomiting Intractability: non-intractable Vomiting type: unspecified Qualified Code(s): R11.2 - Nausea with vomiting, unspecified Code(s): R11.2 - Nausea with vomiting, unspecified Status: Acute Assessment and Plan: Clinically due to DKA Resolving (3) Type 1 diabetes mellitus: Qualifiers: Diabetes mellitus complication status: with hyperglycemia Qualified Code(s): E10.65 - Type 1 diabetes mellitus with hyperglycemia Code(s): E10.9 - Type 1 diabetes mellitus without complications Status: Acute Assessment and Plan: Poor comprehension of disease and minimal compliance with prescribed regimen Prognosis for thriving is poor D/w pt need to manage her disease (4) Tobacco dependence: Code(s): F17.200 - Nicotine dependence, unspecified, uncomplicated Status: Acute Assessment and Plan: Use of tobacco products dramatically reduces her probability of watermelon inspector intact survival (5) Asthma: Qualifiers: Asthma severity: unspecified severity Asthma persistence: unspecified Asthma complication type: unspecified Qualified Code(s): J45.909 - Unspecified asthma, uncomplicated Code(s): J45.909 - Unspecified asthma, uncomplicated Status: Chronic Assessment and Plan: Currently w/o sx's Subjective Date/time seen: 02/02/20 10:17 Interval history: 02/01: Bereft of insulin since last discharge. Admitted again in DKA. Abdominal discomfort nausea. These persist but less severe. Off insulin drip. Tolerated oral intake. Exam Narrative: Exam Narrative: HEENT: EOMI, PERRL, sclerae nonicteric, pharyngeal mucosa pink and intact NECK: No JVD CHEST: Clear to auscultation. Normal effort. HEART: NL S1/S2, regular, no murmur ABDOMEN: BS+, soft, nontender, no mass, no bruits EXTREMITIES: No cyanosis, edema, or clubbing NEUROLOGIC: CN intact and symmetric to inspection. MUSCULOSKELETAL: Tone and strength symmetric. PSYCH: Alert. Oriented to person, place, and time. Objective Data Vital Signs Vital Signs: Vital Signs - 24 hr 02/01/20 14:11 02/01/20 17:04 02/01/20 17:47 Temperature 97.5 F L Pulse Rate 118 H 94 105 H Respiratory Rate 20 18 18 Blood Pressure 153/80 H 113/55 L 111/51 L Pulse Oximetry 100 100 100 02/01/20 18:28 02/01/20 19:00 02/01/20 20:00 Temperature Pulse Rate 78 106 H 103 H Respiratory Rate 18 22 H 20 Blood Pressure 122/66 97/54 L 129/72 Pulse Oximetry 100 100 99 02/01/20 21:00 02/01/20 23:21 02/02/20 00:00 Temperature Pulse Rate 104 H 102 H 93 Respiratory Rate 23 H 20 Blood Pressure 130/64 107/61 Pulse Oximetry 100 100 02/02/20 00:19 02/02/20 03:06 02/02/20 04:00 Temperature 98.8 F 98.9 F Pulse Rate 75 64 104 H Respiratory Rate 17 16 21 H Blood Pressure 105/76 163/100 H 161/104 H Pulse Oximetry 100 100 99 02/02/20 06:00 02/02/20 08:00 Temperature Pulse Rate 72 84 Respiratory Rate 13 24 H Blood Pressure 157/107 H Pulse Oximetry 100 97 Intake/Output Intake/Output: Intake & Output 01/30/20 01/31/20 02/01/20 02/02/20 23:59 23:59 23:59 23:59 Intake Total 3000 1000 Balance 3000 1000 Meds/Results Medications: Active Medications Generic Name Dose Route Start Last Admin Trade Name Freq PRN Reason Stop Dose Admin Dextrose 12.5 gm 02/02/20 09:47 Dextrose 50% 25 Gm/50 Ml Syringe IV PUSH PRN PRN Hypoglycemia Protocol Glucagon 1 m
[2020-02-02] MEDS: INSULIN GLARGINE (*BKC) 100 UNITS/ML 30 UNITS SUB-Q (10:50)
[2020-02-02 11:04] LABS: Glucose Point of Care 181 (65-105)
[2020-02-02 11:11] LABS: Anion Gap 7 mmol/L (8-16); Blood Urea Nitrogen 9 mg/dL (7-17); Calcium 8.7 mg/dL (8.4-10.2); Carbon Dioxide 20 mmol/L (22-30); Chloride 109 mmol/L (98-107); Estimated CRCL calculation 176 ml/min; Estimated Glomerular Filt Rate > 60; Glucose 161 mg/dL (65-105); Potassium 3.6 mmol/L (3.4-5.0); Sodium 136 mmol/L (137-145)
[2020-02-02] MEDS: SODIUM CHLORIDE 0.9% IV 1,000 ML 50 ML IV CONT (12:10)
[2020-02-02] MEDS: INSULIN ASPART (*BKC) 100 UNITS/ML SUB-Q ×2 (12:40→17:22)
[2020-02-02 13:29] LABS: Glucose Point of Care 125 (65-105)
[2020-02-02 16:28] LABS: Glucose Point of Care 123 (65-105)
--- NOTE | 2020-02-02 18:27 | PC.NURSE ---
This patient, Marianne Fofana, was transferred to [ [id number]] on 02/02/20 at 1745. Personal belongings sent with patient. ]. Report given to [ HAMILTON Lopez]. Appropriate documentation sent with patient.
--- NOTE | 2020-02-02 18:33 | PC.NURSE ---
This patient, Marianne Fofana, was received from ICU on 02/02/20 at 1740. Personal belongings list checked and signed. Patient/family oriented to unit policies and routines
[2020-02-02 21:18] LABS: Glucose Point of Care 146 (65-105)
[2020-02-03 01:06] LABS: Glucose Point of Care 188 (65-105)
[2020-02-03 04:26] LABS: Glucose Point of Care 185 (65-105)
[2020-02-03 06:00] VITALS: BP 113/63; PULSE 79; RESP 16; TEMP 37.2; O2SAT 100
[2020-02-03] MEDS: ONDANSETRON INJ 4 MG/2 ML VIAL IV PUSH (06:04)
[2020-02-03 06:23] LABS: Hematocrit 32.4 % (37.0-47.0); Hemoglobin 10.2 g/dL (12.0-15.0); Mean Corpuscular HGB Conc 31.5 g/dl (32-36); Mean Corpuscular Hemoglobin 22.5 pg (26-34); Mean Corpuscular Volume 71.5 fl (80-100); Mean Platelet Volume 10.1 fl (7.4-10.4); Platelet Count Result 361 k/mm3 (150-375); Red Blood Count 4.53 M/mm3 (4.2-5.4); Red Cell Distribution Width 16.7 % (11.5-14.5); White Blood Count 9.2 K/mm3 (4.5-10.0)
[2020-02-03 06:41] LABS: Anion Gap 11 mmol/L (8-16); Blood Urea Nitrogen 7 mg/dL (7-17); Calcium 8.6 mg/dL (8.4-10.2); Carbon Dioxide 22 mmol/L (22-30); Chloride 101 mmol/L (98-107); Estimated CRCL calculation 145 ml/min; Estimated Glomerular Filt Rate > 60; Glucose 201 mg/dL (65-105); Potassium 2.9 mmol/L (3.4-5.0); Sodium 134 mmol/L (137-145)
[2020-02-03 07:58] LABS: Magnesium 1.6 mg/dL (1.6-2.3)
[2020-02-03] MEDS: INSULIN ASPART (*BKC) 100 UNITS/ML SUB-Q ×4 (09:11→17:20)
[2020-02-03] MEDS: INSULIN GLARGINE (*BKC) 100 UNITS/ML 30 UNITS SUB-Q (09:13)
--- NOTE | 2020-02-03 09:16 | PM.IMPN ---
Progress Note: A&P Assessment and Plan (1) DKA (diabetic ketoacidoses): Qualifiers: Diabetes mellitus complication detail: without coma Diabetes mellitus type: type 1 Qualified Code(s): E10.10 - Type 1 diabetes mellitus with ketoacidosis without coma Code(s): E11.10 - Type 2 diabetes mellitus with ketoacidosis without coma Status: Acute Assessment and Plan: Anion gap resolved. N/v overnight. Still nauseous this morning 02/01; transferred to medical floor Monitor BGL (2) Nausea & vomiting: Qualifiers: Vomiting Intractability: non-intractable Vomiting type: unspecified Qualified Code(s): R11.2 - Nausea with vomiting, unspecified Code(s): R11.2 - Nausea with vomiting, unspecified Status: Acute Assessment and Plan: Clinically due to DKA/DM. Episode overnight and given Phenergan with little benefit per patient. Still present this morning Will try Compazine as Phenergan seemed to be ineffective last night; consider Reglan if no improvement Consider GI consult and/or gastric emptying study to assess for gastroparesis Monitor (3) Type 1 diabetes mellitus: Qualifiers: Diabetes mellitus complication status: with hyperglycemia Qualified Code(s): E10.65 - Type 1 diabetes mellitus with hyperglycemia Code(s): E10.9 - Type 1 diabetes mellitus without complications Status: Acute Assessment and Plan: Poor comprehension of disease and minimal compliance with prescribed regimen. Prognosis for thriving is poor . D/w pt need to manage her disease Continue current regimen of 5 u Aspart TIDWM and 30 u glargine daily Accuchecks ACHS, hypoglycemia protocol, correctional insulin, diabetic diet when tolerating diet Will need prompt f/u with PCP or substance abuse rn for further monitoring/management Monitor (4) Tobacco dependence: Code(s): F17.200 - Nicotine dependence, unspecified, uncomplicated Status: Acute Assessment and Plan: Use of tobacco products dramatically reduces her probability of terminal operations manager intact survival (5) Asthma: Qualifiers: Asthma severity: unspecified severity Asthma persistence: unspecified Asthma complication type: unspecified Qualified Code(s): J45.909 - Unspecified asthma, uncomplicated Code(s): J45.909 - Unspecified asthma, uncomplicated Status: Chronic Assessment and Plan: Currently w/o sx's (6) Hypokalemia: Code(s): E87.6 - Hypokalemia Status: Acute Assessment and Plan: K 2.9 today; patient refusing IV and PO potassium at this time. Instructed nursing to attempt to administer later. No associated symptoms Monitor BMP this afternoon Replace as needed Subjective Date/time seen: 02/03/20 09:16 Interval history: Patient is a 24 yo F with history of DM and asthma who is seen in follow up for DKA and nausea/vomiting. Patient was having nausea and vomiting overnight and given Phenergan with little benefit. She is still nauseous this morning with 7/10 diffuse abdominal pain. She states her vomit was red but was not sure of definite bloody emesis. No other complaints at this moment. Nursing is in room and is attempting to give potassium supplementation but patient is refusing at this time; nursing educated patient on low potassium. Denies f/c/s, headaches, dizziness, lightheadedness, cp/palpitations, sob/cough, changes in BMs, dysuria, hematuria, cloudy urine, calf pain/swelling. Of note, patient is short with nursing staff and myself at time of visit, only allowing me to listen to her lungs at her back as she is rolled on her stomach and refuses to roll into a different position as this is making her nauseous; patient also refusing med
[2020-02-03] MEDS: PROCHLORPERAZINE EDISYLATE 10 MG/2 ML VIAL 5 MG IV PUSH (09:17)
[2020-02-03 09:24] LABS: Glucose Point of Care 230 (65-105)
--- NOTE | 2020-02-03 10:25 | PC.NURSE ---
Attempted to give IV and PO potassium that were ordered this am. Patient has refused both of them twice now. Patient states she will not take the IV because it mireles. Will continue to try. Clint was notified.
--- NOTE | 2020-02-03 11:44 | PC.NURSE ---
Nurse entered the room at 0900 to find patients bed alarm not on. Alarm was reset before leaving the room.
[2020-02-03 12:06] LABS: Glucose Point of Care 171 (65-105)
[2020-02-03 14:00] VITALS: BP 121/73; PULSE 91; RESP 18; TEMP 37.2; O2SAT 100
--- NOTE | 2020-02-03 15:14 | PC.NURSE ---
Patient called nurse to the room at 1500. Patient stated her IV was burning and had to stop. Nurse explained to the patient that she needed the IV Potassium because her potassium was only 2.9. Patient started yelling and attempting to take her IV out. Nurse stopped the potassium and restarted the Normal saline. Nurse explained she would need to take the PO potassium and patient continued to refuse at this time. Patient stated I will take the pills when I am ready and I am not ready right now . Patient then chugged an entire cup of water 550ml after the nurse left the room and wanted another cup. Nurse instructed the patient at this time she will have to wait a little bit as she did this overnight and made herself sick.
[2020-02-03 15:37] LABS: Anion Gap 11 mmol/L (8-16); Blood Urea Nitrogen 7 mg/dL (7-17); Calcium 8.8 mg/dL (8.4-10.2); Carbon Dioxide 24 mmol/L (22-30); Chloride 103 mmol/L (98-107); Estimated CRCL calculation 123 ml/min; Estimated Glomerular Filt Rate > 60; Glucose 130 mg/dL (65-105); Magnesium 1.7 mg/dL (1.6-2.3); Potassium 2.7 mmol/L (3.4-5.0); Sodium 138 mmol/L (137-145)
[2020-02-03 16:00] VITALS: PULSE 81
--- NOTE | 2020-02-03 17:00 | PCCDE ---
Consult received 01/31; pt admitted Wednesday 01/31 with DKA. Pt is known to this internal communications writer from previous DKA admits. 1115: attempted to see; room dark pt yells later come back later 1450: attempted to see; pt sts she won't talk to me until the nurse takes her IV out; c/o K+ infusion Left Diabetes Management book with DM specialist contact info at bedside.
[2020-02-03] MEDS: SODIUM CHLORIDE 0.9% IV 1,000 ML 50 ML IV CONT (17:19)
--- NOTE | 2020-02-03 17:24 | PC.NURSE ---
Attempted to give patient P.O doses of potassium again. Patient still refusing at this time. Patient states she is unsure if she will agree to take the potassium. Patient is withdrawn.
[2020-02-03 17:32] LABS: Glucose Point of Care 120 (65-105)
--- NOTE | 2020-02-03 19:09 | PC.NURSE ---
Patient agreeable to taking P.O potassium at shift change. Potassium had already been documented as not given. Per previous conversations with Clint he still wanted her to have 80 Meq when she was agreeable to taking.
[2020-02-03] MEDS: POTASSIUM CHLORIDE 20 MEQ TABLET 80 MEQ PO (19:11)
[2020-02-03 20:20] VITALS: PULSE 75; PULSE 80; RESP 16; O2SAT 100
[2020-02-03 20:50] LABS: Anion Gap 7 mmol/L (8-16); Blood Urea Nitrogen 7 mg/dL (7-17); Calcium 8.3 mg/dL (8.4-10.2); Carbon Dioxide 20 mmol/L (22-30); Chloride 103 mmol/L (98-107); Estimated CRCL calculation 145 ml/min; Estimated Glomerular Filt Rate > 60; Glucose 266 mg/dL (65-105); Potassium 3.4 mmol/L (3.4-5.0); Sodium 130 mmol/L (137-145)
[2020-02-03 21:56] VITALS: BP 139/70; PULSE 75; RESP 16; TEMP 36.6; O2SAT 100
[2020-02-03 22:53] LABS: Glucose Point of Care 251 (65-105)
[2020-02-03 23:21] LABS: Glucose Point of Care 219 (65-105)
[2020-02-04] VITALS: PULSE 85
[2020-02-04 04:00] VITALS: PULSE 84
[2020-02-04] MEDS: SODIUM CHLORIDE 0.9% IV 1,000 ML 50 ML IV CONT (05:22)
[2020-02-04 05:52] VITALS: BP 127/78; PULSE 91; RESP 16; TEMP 36.9; O2SAT 100
[2020-02-04 06:34] LABS: Hematocrit 32.8 % (37.0-47.0); Hemoglobin 10.4 g/dL (12.0-15.0); Mean Corpuscular HGB Conc 31.7 g/dl (32-36); Mean Corpuscular Volume 72.6 fl (80-100); Mean Platelet Volume 10.1 fl (7.4-10.4); Platelet Count Result 334 k/mm3 (150-375); Red Blood Count 4.52 M/mm3 (4.2-5.4); Red Cell Distribution Width 16.7 % (11.5-14.5); White Blood Count 6.7 K/mm3 (4.5-10.0)
[2020-02-04 06:58] LABS: Anion Gap 6 mmol/L (8-16); Blood Urea Nitrogen 6 mg/dL (7-17); Calcium 8.5 mg/dL (8.4-10.2); Carbon Dioxide 26 mmol/L (22-30); Chloride 101 mmol/L (98-107); Estimated CRCL calculation 123 ml/min; Estimated Glomerular Filt Rate > 60; Glucose 240 mg/dL (65-105); Magnesium 1.7 mg/dL (1.6-2.3); Potassium 3.5 mmol/L (3.4-5.0); Sodium 133 mmol/L (137-145)
[2020-02-04 08:00] VITALS: PULSE 80
[2020-02-04 08:21] LABS: Glucose Point of Care 227 (65-105)
[2020-02-04] MEDS: INSULIN ASPART (*BKC) 100 UNITS/ML SUB-Q ×3 (08:48→12:50)
[2020-02-04] MEDS: INSULIN GLARGINE (*BKC) 100 UNITS/ML 30 UNITS SUB-Q (08:48)
[2020-02-04 12:32] LABS: Glucose Point of Care 190 (65-105)
--- NOTE | 2020-02-04 13:24 | PM.DS ---
DS: Admitting Diagnosis Admitting Diagnosis Admitting Diagnosis: DKA DS: Discharge Diagnosis Discharge Diagnosis (1) DKA (diabetic ketoacidoses): Qualifiers: Diabetes mellitus complication detail: without coma Diabetes mellitus type: type 1 Qualified Code(s): E10.10 - Type 1 diabetes mellitus with ketoacidosis without coma Code(s): E11.10 - Type 2 diabetes mellitus with ketoacidosis without coma Status: Acute Assessment and Plan: Patient presented to the emergency with complaints nausea, vomiting and abdominal pain. In the emergency room, she was found to have a glucose of 432 an anion gap of 24. She had positive serum ketones. Was admitted to the ICU under the DKA protocol. Her anion gap closed. Glucose became better controlled. She was able to be weaned to subcu insulin successfully. She has been eating and tolerating normal oral intake. (2) Nausea & vomiting: Qualifiers: Vomiting Intractability: non-intractable Vomiting type: unspecified Qualified Code(s): R11.2 - Nausea with vomiting, unspecified Code(s): R11.2 - Nausea with vomiting, unspecified Status: Acute Assessment and Plan: Clinically due to DKA/DM. She was having some mild residual nausea but this resolved. She has had 3 meals here without issue. (3) Type 1 diabetes mellitus: Qualifiers: Diabetes mellitus complication status: with hyperglycemia Qualified Code(s): E10.65 - Type 1 diabetes mellitus with hyperglycemia Code(s): E10.9 - Type 1 diabetes mellitus without complications Status: Acute Assessment and Plan: Pt has poor comprehension of disease and minimal compliance with prescribed regimen. Prognosis for thriving is poor. Current regimen of 5u Aspart TIDWM and 30 u glargine daily which was continued. (4) Tobacco dependence: Code(s): F17.200 - Nicotine dependence, unspecified, uncomplicated Status: Acute Assessment and Plan: Patient was educated about the benefits of smoking cessation. (5) Asthma: Qualifiers: Asthma severity: unspecified severity Asthma persistence: unspecified Asthma complication type: unspecified Qualified Code(s): J45.909 - Unspecified asthma, uncomplicated Code(s): J45.909 - Unspecified asthma, uncomplicated Status: Chronic Assessment and Plan: Stable. No issues. (6) Hypokalemia: Code(s): E87.6 - Hypokalemia Status: Acute Assessment and Plan: Patient's potassium dropped to 2.9 but she was refusing replacement until later in the evening for unclear reasons. Potassium normal today. Most likely hypokalemia related to above. DS: Summary Hospital Course Reason for hospitalization: 24yo female with DM here for n/v and abdominal pain. please see H&P for details. Hospital Course: As above Time Spent with Patient Time attestation: Total time spent providing and/or coordinating discharge services:34 minutes Time spent: Greater than 30 minutes Exam Narrative: Exam Narrative: AF 98.4 127/78 80 16 100% ra Gen - NARD Chest - CTA bilaterally, nml RR CV - RRR S1/S2 Abd - soft, NT/ND, +BS Ext - no pedal edema Psych - nml mood, odd affect DS: Data Data Completed and Pending Labs on day of discharge: Labs from last 24 hours 02/04/20 02/04/20 02/04/20 12:27 08:19 06:13 WBC RBC Hgb Hct MCV MCH MCHC RDW Plt Count MPV Sodium 133 L Potassium 3.5 Chloride 101 Carbon Dioxide 26 Anion Gap 6 L BUN 6 L Creatinine 0.60 L Estim Creat Clear Calc 123 Estimated GFR > 60 Glucose 240 H POC Capillary Glucose 190 H 227 H Calcium 8.5 Magnesium
--- NOTE | 2020-02-04 14:03 | PC.NURSE ---
pharmacy called. patient insurance covers lantus and humalog. d/w Dr. Mackey. ok to substitute. Tabitha at pharmacy aware.
== END 2020-02-04 14:07 | disposition home or self-care (01) | DRG 420 ==
LOC: ANHED 20:36 → ANHICU 22:38 → ANH3MEDSUR 02-02 17:50
PROVIDERS: Family Medicine; Internal Medicine; Admitting Provider Family Medicine; Emergency Provider Emergency Medicine; Visit Provider Physician Assistant
DX: E10.10 Type 1 diabetes mellitus with ketoacidosis without coma (principal); E10.9 Type 1 diabetes mellitus without complications; J45.909 Unspecified asthma, uncomplicated; F17.210 Nicotine dependence, cigarettes, uncomplicated; E87.6 Hypokalemia; Z23 Encounter for immunization
CPT/HCPCS: 36415; 36600; 74176; 80048; 80053; 81001; 81025; 82010; 82375; 82805; 82948; 83050; 83690; 83735; 84100; 85025; 85027; 90471; 90653; 96361; 96365; 96366; 96368; 96372; 96374; 96375; 96376; 99285; A9270; G0008; G0378; G0379; J0780; J1815; J2405; J2550; J3480; J7030; J7120

== ENCOUNTER 2020-02-17 15:33 | Emergency (ER) | payer OTHER, SELFPAY ==
[2020-02-17] VITALS (16 sets, daily range): BP systolic 108–190; BP diastolic 63–130; PULSE 0–107; RESP 11–24; TEMP 36.6; O2SAT 88–100
--- NOTE | 2020-02-17 16:30 | PC.NURSE ---
pt refusing to give ua at this time, states im dehydrated and cannot go. refusing cath.
[2020-02-17 16:54] LABS: Glucose Point of Care 353 (65-105)
--- NOTE | 2020-02-17 17:15 | PC.NURSE ---
PT DIFFICULT STICK, STATES THAT LAST WEEK WHEN SHE WAS HERE SHE HAD AN IV IN THE FOOT. VASCULAR ACCESS NURSE IS NOT AVAILABLE AT THIS TIME. PT STUCK MULTIPLE TIMES BY HAMILTON GARNICA AND ALEXANDR, NO ACCESS OBTAINED. ADAN MIGUEL INFORMED.
--- NOTE | 2020-02-17 17:25 | PC.NURSE ---
ERP Madan at bedside with ultrasound at this time to attempt iv placement.
[2020-02-17] MEDS: SODIUM CHLORIDE 0.9% IV 1,000 ML 999 ML IV CONT ×2 (17:32→18:13)
[2020-02-17 17:39] LABS: Basophils Percent Auto 0.2 % (0.2-1.2); Hematocrit 39.6 % (37.0-47.0); Hemoglobin 12.5 g/dL (12.0-15.0); Immature Granulocyte Absolute 0.04 K/mm3 (0.00-0.031); Immature Granulocyte Percent A 0.3 % (0-0.5); Lymphocytes Absolute Auto 1.42 K/mm3 (0.9-3.2); Mean Corpuscular HGB Conc 31.6 g/dl (32-36); Mean Corpuscular Hemoglobin 22.8 pg (26-34); Mean Corpuscular Volume 72.3 fl (80-100); Monocytes Absolute Auto 1.1 K/mm3 (0.1-0.6); Monocytes Percent Auto 7.9 % (2.6-8.5); Neutrophils Absolute Auto 11.6 K/mm3 (1.3-6.7); Neutrophils Percent Auto 81.6 % (45.5-73.1); Platelet Count Result 485 k/mm3 (150-375); Red Blood Count 5.48 M/mm3 (4.2-5.4); Red Cell Distribution Width 18.1 % (11.5-14.5); White Blood Count 14.3 K/mm3 (4.5-10.0)
--- NOTE | 2020-02-17 17:52 | PC.NURSE ---
PT STILL REFUSING TO URINATE AND REFUSING CATH.
[2020-02-17 17:56] LABS: Alanine Aminotransferase 14 U/L (4-35); Albumin Level 5.1 g/dL (3.5-5.1); Alkaline Phosphatase 118 U/L (38-126); Anion Gap 25 mmol/L (8-16); Aspartate Amino Transferase 21 U/L (14-36); Blood Urea Nitrogen 19 mg/dL (7-17); Calcium 10.9 mg/dL (8.4-10.2); Carbon Dioxide 14 mmol/L (22-30); Chloride 97 mmol/L (98-107); Estimated CRCL calculation 94 ml/min; Estimated Glomerular Filt Rate > 60; Glucose 377 mg/dL (65-105); Magnesium 1.9 mg/dL (1.6-2.3); Phosphorus 4.1 mg/dL (2.5-4.5); Potassium 3.9 mmol/L (3.4-5.0); Sodium 136 mmol/L (137-145)
[2020-02-17 18:02] LABS: Beta-Hydroxybutyrate/Acetoacetate 4.25 mmol/L (0.02-0.27)
[2020-02-17] MEDS: PROMETHAZINE HCL 25 MG/ML AMPUL 12.5 MG IV PUSH (18:13)
--- NOTE | 2020-02-17 18:17 | PC.NURSE ---
PT STILL REFUSING TO URINATE AND REFUSING CATH.
[2020-02-17 18:27] LABS: Alveolar/Arterial O2 Gradient 18.6 mmHg; Base Excess ABG -6.7 mEq/l (+/-2.0); Carboxyhemoglobin 1.6 % THb (0-2.0); Fractional Inspired Oxygen 21 %; HCO3 ABG 16.8 mEq/l (22.0-26.0); Methemoglobin ABG 0.3 %THb (0-1.5); Oxygen Content ABG 15.6 %vol (16.0-22.0); Oxygen Saturation ABG 97.6 % (95.0-100.0); Oxyhemoglobin 94.1 % THb (90.0-100.0); PCO2 ABG 27.7 mmHg (35.0-45.0); PO2 FiO2 Ratio Arterial Blood 4.67 %; Total Hemoglobin 11.7 g/dL (12.0-18.0); pH ABG 7.401 (7.350-7.450)
--- NOTE | 2020-02-17 18:27 | ED.NAVMDI ---
HPI - Nausea/Vomiting/Diarrhea General Chief complaint: Nausea/Vomiting/Diarrhea Stated complaint: possible DKA/ nausea Time Seen by Provider: 02/17/20 16:16 History of Present Illness HPI Narrative: Patient is a 24-year-old female who presents ER with concerns for being in DKA. She reports last night she began having uncontrolled vomiting. Its progressed throughout the day. She has not taken her blood sugar in the last 4 days and has not attempted to take it today because she has not been able to keep anything down. No known sick contacts. No diarrhea. Denies fever/chills/sweats. She is found no alleviating factors. Related Data Allergies Allergy/AdvReac Type Severity Reaction Status Date / Time banana Allergy Unknown makes Verified 02/01/20 15:21 mouth swell, couldn't breath Review of Systems Review of Systems: All systems reviewed & are unremarkable except as noted in HPI and below Constitutional: Constitutional: Denies chills, Denies fever(s) and Reports weakness ENT: Denies nasal congestion and Denies sore throat Cardiovascular: Cardiovascular: Denies chest pain and Denies radiating jaw, neck or arm pain Respiratory: Respiratory: Denies cough and Denies dyspnea Gastrointestinal: Gastrointestinal: Denies abdominal pain, Denies diarrhea and Reports vomiting Genitourinary: Genitourinary: Denies nocturia and Denies dysuria PMFSH Past Medical History Medical History (Updated 02/17/20 @ 20:42 by Fidencio Hager MD) Asthma Diabetes mellitus Surgical History Surgical History No pertinent past surgical history Social History Social History Smoking packs per day: 0.5 Smoking cigarettes per day: 10.0 Smoking status: Heavy tobacco smoker Tobacco type: cigarettes Second hand tobacco smoke exposure: Yes Alcohol intake: current Drinks per week: 4 Substance use: current Substance use type: marijuana Other substance usage details: less than one drink a week Last use: 01/31/20 Gender identity (if verbalized by the patient): Female Spiritual care concerns: No Exam Narrative: Exam Narrative: GENERAL: Uncomfortable-appearing, well-nourished, and in no acute distress. HEAD: Normocephalic, atraumatic. EYES: PERRL and EOMI. ENT: Mucous membranes moist. CHEST: Clear to auscultation. No respiratory distress. HEART: Tachycardic and regular. Normal peripheral pulses. ABDOMEN: Soft, nontender, nondistended. EXTREMITIES: Normal range of motion. No edema. SKIN: Warm, dry, no rash. NEURO: Alert and oriented x3. Course Course Emergency Course: Patient informed results. Tolerating oral fluid intake and blood sugar coming down with IV fluids and IV insulin. Discharge home with supportive therapy. Vital Signs Vital signs: Vital Signs Temperature 97.8 F 02/17/20 16:11 Pulse Rate 107 H 02/17/20 16:11 Respiratory Rate 22 H 02/17/20 16:11 Blood Pressure 190/130 H 02/17/20 16:11 Pulse Oximetry 100 02/17/20 16:11 Temperature 97.8 F 02/17/20 16:11 Pulse Rate 101 H 02/17/20 19:00 Respiratory Rate 22 H 02/17/20 19:00 Blood Pressure 108/63 02/17/20 19:00 Pulse Oximetry 99 02/17/20 19:00 Procedures Phlebotomy Phlebotomy #1: Phlebotomy Date: 02/17/20 Phlebotomy Time: 17:30 Phlebotomy Location: peripheral vein stick Reason for Blood Draw by MD: to place line MDM - Nausea/Vomiting/Diarrhea Lab Data Result diagrams: 02/17/20 17:29 02/17/20 17:29 Labs: Lab Results 02/17/20 02/17/20 02/17/20 Range/Units 16:52 17:29 17:29 WBC 14.3 H (4.5-10.0) K/mm3 RBC 5.48 H (4.2-5.4) M/mm3 Hgb 12.5 (12.0-15.0) g/dL Hct 39.6 (37.0-47.0) % MCV 72.3 L (80-100) fl MCH 22.8 L (26-34) pg MCHC 31.6 L (32-36) g/dl RDW 18.1 H (11.5-14.5) % Plt Count 485 H
[2020-02-17 18:28] LABS: Device ROOM AIR; Modified Allen's Test Pass; Site Drawn RIGHT RADIAL
--- NOTE | 2020-02-17 18:35 | PC.NURSE ---
PT STILL REFUSING TO URINATE AND REFUSING CATH.
--- NOTE | 2020-02-17 19:00 | PC.NURSE ---
PT STILL REFUSING TO URINATE AND REFUSING CATH.
--- NOTE | 2020-02-17 19:14 | PC.NURSE ---
report to elisa Chen at this time, she has assumed pt care.
--- NOTE | 2020-02-17 19:16 | PC.NURSE ---
Assumed care of pt. at this time. Report from HAMILTON Fernandez
--- NOTE | 2020-02-17 19:29 | PC.NURSE ---
Pt. states she cannot urinate at this time and will try in a little bit
--- NOTE | 2020-02-17 20:03 | PC.NURSE ---
Pt. refuses to provided urine sample states I will do it on my own time.
[2020-02-17 20:04] LABS: Glucose Point of Care 320 (65-105)
--- NOTE | 2020-02-17 20:10 | PC.NURSE ---
RN into [facility] Challenge Pt. Pt. refusing to sit up and take a drink of water. Pt. states I will do it on my own time. RN asked pt. again to sit up and take a drink of water. Pt. sat up and took a sip and said Calvin there ERP made aware.
[2020-02-17] MEDS: INSULIN HUMAN REGULAR (*BKC) 100 UNITS/ML 8 UNITS IV PUSH (20:13)
[2020-02-17 20:37] LABS: Glucose Point of Care 241 (65-105)
== END 2020-02-17 20:45 | disposition home or self-care (01) ==
PROVIDERS: Emergency Provider Emergency Medicine
DX: R11.2 Nausea with vomiting, unspecified (principal); E11.65 Type 2 diabetes mellitus with hyperglycemia; Z79.4 Long term (current) use of insulin; J45.909 Unspecified asthma, uncomplicated; F17.210 Nicotine dependence, cigarettes, uncomplicated
CPT/HCPCS: 36415; 36600; 80053; 82010; 82375; 82805; 82948; 83050; 83735; 84100; 85025; 96361; 96374; 96375; 99284; J1815; J2550; J7030

== ENCOUNTER 2020-02-18 15:42 | Observation (INO) | payer OTHER, SELFPAY ==
[2020-02-18 15:51] VITALS: BP 124/82; PULSE 100; RESP 18; TEMP 36.1; O2SAT 100
--- NOTE | 2020-02-18 15:54 | PC.NURSE ---
Lab draw attempted once by Marylou. Patient is now requesting not to be stuck any more due to being a hard stick. Patient is requesting that the ultrasound be used on her.
[2020-02-18 16:19] VITALS: BP 182/137; PULSE 98; RESP 16; TEMP 36.8; O2SAT 100
[2020-02-18 16:30] LABS: Glucose Point of Care 319 (65-105)
--- NOTE | 2020-02-18 16:54 | PC.NURSE ---
This RN is unable to obtain IV access w/ mult attempts, 3 other RNs attempted w/ U/S and unsuccessful. IV access not avail today. Will continue attempt.
[2020-02-18] MEDS: LACTATED RINGERS 1,000 ML 999 ML IV CONT (17:22)
[2020-02-18] MEDS: HALOPERIDOL LACTATE 5 MG/ML VIAL IV PUSH (17:23)
[2020-02-18] MEDS: INSULIN HUMAN REGULAR (*BKC) 100 UNITS/ML 12 UNITS SUB-Q (17:23)
[2020-02-18 17:27] LABS: Fractional Inspired Oxygen 21 %; PO2 VBG 46.3 mmHg (35.0-45.0)
[2020-02-18 17:28] LABS: Device ROOM AIR; PCO2 VBG 17.4 mmHg (42.0-48.0); pH VBG 7.552 (7.300-7.400)
--- NOTE | 2020-02-18 17:32 | PC.NURSE ---
Asked pt for urine sample, she is not able to go at this time
[2020-02-18 17:36] LABS: Basophils Percent Auto 0.2 % (0.2-1.2); Eosinophils Percent Auto 0.1 % (0-4.4); Hematocrit 36.7 % (37.0-47.0); Hemoglobin 11.3 g/dL (12.0-15.0); Immature Granulocyte Absolute 0.06 K/mm3 (0.00-0.031); Immature Granulocyte Percent A 0.6 % (0-0.5); Lymphocytes Absolute Auto 1.52 K/mm3 (0.9-3.2); Lymphocytes Percent Auto 15.3 % (18.3-44.2); Mean Corpuscular HGB Conc 30.8 g/dl (32-36); Mean Corpuscular Hemoglobin 22.7 pg (26-34); Mean Corpuscular Volume 73.8 fl (80-100); Mean Platelet Volume 9.7 fl (7.4-10.4); Monocytes Absolute Auto 0.5 K/mm3 (0.1-0.6); Monocytes Percent Auto 5.1 % (2.6-8.5); Neutrophils Absolute Auto 7.8 K/mm3 (1.3-6.7); Neutrophils Percent Auto 78.7 % (45.5-73.1); Platelet Count Result 414 k/mm3 (150-375); Red Blood Count 4.97 M/mm3 (4.2-5.4); Red Cell Distribution Width 17.8 % (11.5-14.5); White Blood Count 9.9 K/mm3 (4.5-10.0)
--- NOTE | 2020-02-18 17:38 | PC.NURSE ---
pt unable to provide u/a at this time, declined straight cath, fluids infusing
[2020-02-18 17:39] VITALS: BP 169/109; PULSE 102; RESP 18; O2SAT 100
[2020-02-18 17:51] LABS: Alanine Aminotransferase 11 U/L (4-35); Albumin Level 4.7 g/dL (3.5-5.1); Alkaline Phosphatase 102 U/L (38-126); Anion Gap 19 mmol/L (8-16); Aspartate Amino Transferase 27 U/L (14-36); Beta-Hydroxybutyrate/Acetoacetate 3.88 mmol/L (0.02-0.27); Bilirubin,Total 0.9 mg/dL (0.2-1.3); Blood Urea Nitrogen 15 mg/dL (7-17); Calcium 9.6 mg/dL (8.4-10.2); Carbon Dioxide 16 mmol/L (22-30); Chloride 98 mmol/L (98-107); Estimated CRCL calculation 124 ml/min; Estimated Glomerular Filt Rate > 60; Glucose 317 mg/dL (65-105); Lipase 92 U/L (23-300); Potassium 4.1 mmol/L (3.4-5.0); Sodium 133 mmol/L (137-145)
--- NOTE | 2020-02-18 18:06 | ED.NAVMDI ---
HPI - Nausea/Vomiting/Diarrhea General Chief complaint: Nausea/Vomiting/Diarrhea Stated complaint: vomiting Time Seen by Provider: 02/18/20 16:36 Source: patient Mode of arrival: ambulatory History of Present Illness HPI Narrative: 24-year-old female Insulin-dependent diabetic but does not take medicine for anything else Presents with nausea and vomiting today She also presented with nausea and vomiting yesterday She notes that she has some generalized abdominal discomfort, no urinary symptoms, her last period was about a week ago She mentions that for 3 days she has felt sick so she has not been taking her insulin, although she did get insulin here yesterday, but apparently has not taken it since she left She has had too numerous to count presentations for similar issues I cannot tell whether she has ever had a formal gastric emptying study She smokes weed but she says only about once a month MD elicited complaint: nausea and vomiting Related Data Allergies Allergy/AdvReac Type Severity Reaction Status Date / Time banana Allergy Unknown makes Verified 02/01/20 15:21 mouth swell, couldn't breath Review of Systems Review of Systems: All systems reviewed & are unremarkable except as noted in HPI and below Constitutional: Constitutional: Reports chills, Reports fatigue, Denies fever(s), Denies headache(s) and Reports weakness Eyes: Eyes: Denies change in vision and Denies other visual disturbances ENT: Denies headache(s), Denies epistaxis, Denies nasal congestion and Denies sore throat Cardiovascular: Cardiovascular: Denies chest pain, Denies leg edema, Denies palpitations and Denies dyspnea Respiratory: Respiratory: Denies cough, Denies dyspnea and Denies wheezing Gastrointestinal: Gastrointestinal: Reports abdominal pain, Denies diarrhea, Reports nausea and Reports vomiting Genitourinary: Genitourinary: Denies hematuria, Denies urinary frequency and Denies dysuria Musculoskeletal: Musculoskeletal: Denies deformity, Denies arthralgias, Denies joint swelling, Denies muscle weakness and Denies numbness Integumentary/Breasts: Skin/Breast: Denies rash, Denies unusual bruising and Denies wounds Neurologic: Denies Abnormal speech present, Denies headache(s), Denies focal weakness, Denies numbness and Denies weakness Psychiatric: Psychiatric: Reports no additional psychiatric complaints Endocrine: Endocrine: Reports fatigue and Denies palpitations Hematologic/Lymphatic: Hematologic/Lymphatic: Denies easy bleeding and Denies easy bruising Allergic/Immunologic: Allergic/Immunologic: Denies wheezing PMFSH Past Medical History Medical History (Updated 02/18/20 @ 19:05 by Alonzo Arroyo MD) Asthma Diabetes mellitus Surgical History Surgical History No pertinent past surgical history Social History Social History Smoking packs per day: 0.5 Smoking cigarettes per day: 10.0 Smoking status: Heavy tobacco smoker Tobacco type: cigarettes Second hand tobacco smoke exposure: Yes Alcohol intake: current Drinks per week: 4 Substance use: current Substance use type: marijuana Other substance usage details: less than one drink a week Last use: 01/31/20 Gender identity (if verbalized by the patient): Female Spiritual care concerns: No Exam Const: General: well developed, alert and awake Nutritional Appearance: well nourished Orientation/consciousness: patient oriented x3 (alert) HENMT: Head: normocephalic and atraumatic Ears: external ears normal General nose exam: No nasal discharge present and no epistaxis Face and sinus: face symmetric Eyes: Conjunctivae: conjunctivae normal Sclera: sclerae normal EOM: EOMs intact bilaterally Neck: Neck: normal visual inspection, supple and no JVD Chest: Chest palpation & inspection: deferred Resp: [facility]
--- NOTE | 2020-02-18 18:26 | PC.NURSE ---
PT STATES THAT SHE IS UNABLE TO PROVIDE URINE SAMPLE AT THIS TIME.
--- NOTE | 2020-02-18 18:33 | PC.NURSE ---
Called Phlebotomy to draw bmp
[2020-02-18 18:38] LABS: Magnesium 1.9 mg/dL (1.6-2.3); Phosphorus 2.2 mg/dL (2.5-4.5)
[2020-02-18 18:47] LABS: Glucose Point of Care 238 (65-105)
[2020-02-18 18:55] VITALS: BP 164/110; PULSE 99; RESP 20; O2SAT 98
--- NOTE | 2020-02-18 19:13 | PC.NURSE ---
Report received from HAMILTON Bustillo. Awaiting bed assignment for admission.
[2020-02-18 19:17] LABS: Anion Gap 16 mmol/L (8-16); Blood Urea Nitrogen 14 mg/dL (7-17); Calcium 9.4 mg/dL (8.4-10.2); Carbon Dioxide 18 mmol/L (22-30); Chloride 100 mmol/L (98-107); Estimated CRCL calculation 145 ml/min; Estimated Glomerular Filt Rate > 60; Glucose 269 mg/dL (65-105); Potassium 3.6 mmol/L (3.4-5.0); Sodium 134 mmol/L (137-145)
[2020-02-18] MEDS: INSULIN HUMAN REGULAR (*BKC) 100 UNITS in SODIUM CHLORIDE 0.9% IV 99 ML IV CONT (19:24)
[2020-02-18 19:31] LABS: Add Urine Microscopic? YES; Appearance Urine Cloudy (Clear); Bilirubin Urine Negative (Negative); Blood Urine Negative (Negative); Color Urine Yellow (Yellow); Glucose Urine UA 3+ mg/dL (Negative); Ketones Urine 2+ mg/dL (Negative); Leukocyte Esterase Ur Negative LEU/UL (Negative); Mucus Urine Rare /lpf; Nitrate Urine Negative (Negative); Protein Urine Negative (Negative); RBC Urine 0-2 /hpf (0-2); Squamous Epithelial Cell Urine Many /hpf (Few); Urobilinogen Urine Negative mg/dL (<2.0); WBC Urine 0-3 /hpf
[2020-02-18 19:32] LABS: Specific Grav Ur 1.032 (1.001-1.035)
[2020-02-18 19:42] LABS: Amphetamine Screen Urine Negative (Negative); Barbiturate Screen Urine Negative (Negative); Benzodiazepines Screen Urine Negative (Negative); Cannabinoid Screen Urine Positive (Negative); Cocaine Screen Urine Negative (Negative); Methadone Screen Urine Negative (Negative); Opiate Screen Urine Negative (Negative); Phencyclidine Screen Urine Negative (Negative)
[2020-02-18] MEDS: SODIUM CHLORIDE 0.9% IV 1,000 ML 150 ML IV CONT (19:51)
[2020-02-18] MEDS: DEXTROSE 5%/0.45% SOD CHL 1,000 ML 150 ML IV CONT (19:51)
[2020-02-18 20:45] VITALS: BP 122/65; PULSE 70; RESP 16; TEMP 36.9; O2SAT 95
[2020-02-18 20:50] VITALS: BMI 29.0
[2020-02-18] MEDS: ONDANSETRON INJ 4 MG/2 ML VIAL IV PUSH (21:40)
[2020-02-18] MEDS: KCL 20 MEQ/D5/0.45% SOD CHL 1,000 ML 150 ML IV CONT (21:41)
[2020-02-18 21:46] LABS: Magnesium 1.7 mg/dL (1.6-2.3); Phosphorus 2.5 mg/dL (2.5-4.5)
[2020-02-18 21:47] LABS: Anion Gap 12 mmol/L (8-16); Blood Urea Nitrogen 13 mg/dL (7-17); Calcium 8.8 mg/dL (8.4-10.2); Carbon Dioxide 20 mmol/L (22-30); Chloride 101 mmol/L (98-107); Estimated CRCL calculation 139 ml/min; Estimated Glomerular Filt Rate > 60; Glucose 217 mg/dL (65-105); Potassium 3.6 mmol/L (3.4-5.0); Sodium 133 mmol/L (137-145)
[2020-02-18 21:47] LABS: Glucose Point of Care 195 (65-105)
[2020-02-18 21:47] LABS: Glucose Point of Care 223 (65-105)
[2020-02-18 22:00] VITALS: BP 160/99; PULSE 67; RESP 10; O2SAT 99
[2020-02-18 22:07] LABS: Hemoglobin A1C 11.3 % (<5.7)
--- NOTE | 2020-02-18 22:23 | PM.IMHP ---
H&P: HPI History of Present Illness Date/Time: 02/18/20 22:24 Chief complaint: dka Narrative: Marianne Fofana is a 24 year old female Who has a history of insulin-dependent diabetes. The patient stated she has not taken her insulin for 3 days because she has been having nausea and vomiting. The patient came into the emergency room last night. At that time she told the ER physician that she had not checked her blood sugar in 4 days. She tried to check her blood sugar yesterday because she could keep anything down. She had no known sick contacts. Her blood sugar was 377 then and was sent home on Zofran. She was able to tolerate fluid intake and blood sugars were down with IV fluids and IV insulin she was discharged to home with supportive care. The patient return to the emergency room today. She has had multiple episodes of DKA and has been admitted multiple times. She has insulin-dependent but is mostly noncompliant. She does not check her blood sugars are take her insulin. She came in with nausea vomiting again today. She had some generalized abdominal discomfort. She continues to use marijuana. The patient was given IV fluids. And Haldol in the emergency room. She was given IV insulin and started on insulin drip. The DKA protocol was started. the patient's A1c is 11.3 today. Her anion gap today was only 16. However yesterday it had been 25. PH 7.552 pCO2 17.4. This was thought to be venous blood. The patient was admitted to ICU as observation on the date of service of 02/18/2020. Review of Systems Review of Systems: All systems reviewed & are unremarkable except as noted in HPI and below Constitutional: Constitutional: Reports as per HPI and Reports no additional constitutional complaints Eyes: Eyes: Reports as per HPI and Reports no additional eye complaints ENT: Reports system reviewed and no additional complaints, except as documented and Reports Normal hearing present Cardiovascular: Cardiovascular: Reports no additional cardiovascular complaints Respiratory: Respiratory: Reports no additional respiratory complaints and Reports no additional respiratory complaints Gastrointestinal: Gastrointestinal: Reports as per HPI and Reports no additional gastrointestinal complaints Musculoskeletal: Musculoskeletal: Reports no additional musculoskeletal complaints Integumentary/Breasts: Skin/Breast: Reports system reviewed and no additional complaints, except as docu and Reports as per HPI Neurologic: Reports system reviewed and no additional complaints, except as documented, Reports as per HPI and Reports Normal hearing present Psychiatric: Psychiatric: Reports no additional psychiatric complaints and Reports as per HPI Endocrine: Endocrine: Reports no additional endocrine complaints Hematologic/Lymphatic: Hematologic/Lymphatic: Reports no additional hematologic/lymphatic complaints Allergic/Immunologic: Allergic/Immunologic: Reports no additional allergic/immunologic complaints [facility] Past Medical History Medical History (Updated 02/18/20 @ 22:38 by Shanice Reece NP) Asthma Diabetes mellitus Schizophrenia Seizure disorder Surgical History Surgical History (Updated 02/18/20 @ 22:38 by Shanice Reece NP) History of incision and drainage abdominal abscess Hx of cholecystectomy Family History Family History Grandparent Diabetes mellitus Asthma Sibling Diabetes mellitus Mother Acute myocardial infarction Social History Social History (Updated 02/18/20 @ 22:36 by Shanice Reece NP) Social History: the patient has 1 son. 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 Her aunt basically raises her son. She lives with her aunt. She is single. She is a full code. She uses marijuana and smokes cigarettes occasionally has alcohol. She works as and adult entertainer. Smoking packs per day: 0.5 Smoking cigarettes per day: 10.0 Y
[2020-02-18 22:45] LABS: Glucose Point of Care 191 (65-105)
[2020-02-19] VITALS (9 sets, daily range): BP systolic 110–127; BP diastolic 62–82; PULSE 88–99; RESP 8–20; TEMP 35.8–36.9; O2SAT 100
[2020-02-19 00:41] LABS: Glucose Point of Care 163 (65-105)
[2020-02-19 00:41] LABS: Glucose Point of Care 163 (65-105)
--- NOTE | 2020-02-19 00:56 | PC.NURSE ---
This patient, Marianne Fofana, was admitted to Intensive Care Unit-10 on 02/18/2020 at 2035. Patient/family oriented to hospital policies and general routines including ID bracelet, bed and alarms, visiting hours, pain management, procedures, bathroom and other care routines, personal items, smoking policy, room service/diet, and visiting hours. Information on how to activate the Rapid Response Team has been discussed. Patient/Family are encouraged to report perceived risks to care and to ask questions if they do not understand what they are told or what they should do.
[2020-02-19 01:34] LABS: Glucose Point of Care 151 (65-105)
[2020-02-19 02:30] LABS: Glucose Point of Care 126 (65-105)
[2020-02-19 03:36] LABS: Glucose Point of Care 116 (65-105)
[2020-02-19] MEDS: KCL 20 MEQ/D5/0.45% SOD CHL 1,000 ML 150 ML IV CONT (04:05)
[2020-02-19 04:41] LABS: Glucose Point of Care 144 (65-105)
[2020-02-19 05:34] LABS: Anion Gap 9 mmol/L (8-16); Blood Urea Nitrogen 9 mg/dL (7-17); Carbon Dioxide 20 mmol/L (22-30); Chloride 107 mmol/L (98-107); Estimated CRCL calculation 139 ml/min; Estimated Glomerular Filt Rate > 60; Glucose 130 mg/dL (65-105); Magnesium 1.9 mg/dL (1.6-2.3); Potassium 3.4 mmol/L (3.4-5.0); Sodium 136 mmol/L (137-145)
[2020-02-19 05:35] LABS: Glucose Point of Care 137 (65-105)
[2020-02-19] MEDS: INSULIN GLARGINE (*BKC) 100 UNITS/ML 30 UNITS SUB-Q (06:30)
--- NOTE | 2020-02-19 07:45 | PC.NURSE ---
Patient refusing to have labs drawn. Dr. Massey spoke with patient. Patient stated she wanted to sleep at this time and will have her labs drawn later.
--- NOTE | 2020-02-19 09:30 | WPDGIPROGNO ---
Progress Note: A&P Additional Plan I came by to see patient because of consultation this morning. Patient refused to talk to me stating it was too early. 0 700. Subjective Date/time seen: 02/19/20 09:30 Objective Data Vital Signs Vital Signs: Vital Signs - 24 hr 02/18/20 15:51 02/18/20 16:19 02/18/20 17:39 Temperature 97.0 F L 98.3 F Pulse Rate 100 98 102 H Respiratory Rate 18 16 18 Blood Pressure 124/82 182/137 H 169/109 H Pulse Oximetry 100 100 100 02/18/20 18:55 02/18/20 20:45 02/18/20 22:00 Temperature 98.4 F Pulse Rate 99 70 67 Respiratory Rate 20 16 10 L Blood Pressure 164/110 H 122/65 160/99 H Pulse Oximetry 98 95 99 02/19/20 00:00 02/19/20 02:00 02/19/20 04:00 Temperature 98.4 F 97.9 F Pulse Rate 88 96 91 Respiratory Rate 8 L 12 10 L Blood Pressure 125/82 120/81 118/78 Pulse Oximetry 100 100 100 02/19/20 06:00 02/19/20 08:00 Temperature Pulse Rate 88 90 Respiratory Rate 12 Blood Pressure 118/68 Pulse Oximetry 100 Intake/Output Intake/Output: Intake & Output 02/16/20 02/17/20 02/18/20 02/19/20 23:59 23:59 23:59 23:59 Intake Total 1500 1566 Output Total 975 Balance 1500 591 Meds/Results Medications: Active Medications Generic Name Dose Route Start Last Admin Trade Name Freq PRN Reason Stop Dose Admin Acetaminophen 650 mg 02/18/20 18:53 Acetaminophen 325 Mg Tablet PO Q4H PRN Mild Pain (1-3) or Fever Albuterol 2 puff 02/18/20 22:42 Albuterol Sulfate (*Sp) Aerosol 1 Puff INHALATION QIDRT PRN Shortness Of Breath Dextrose 12.5 gm 02/19/20 05:47 Dextrose 50% 25 Gm/50 Ml Syringe IV PUSH PRN PRN Hypoglycemia Protocol Famotidine 20 mg 02/19/20 09:00 Famotidine 20 Mg/2 Ml Vial IV PUSH Q12HR CATRACHITO Glucagon 1 mg 02/19/20 05:47 Glucagon For Inj 1 Mg Vial IM PRN PRN Hypoglycemia Protocol Glucose 15 gm 02/19/20 05:47 Glucose Oral Gel 15 Gm Of Glucse In 37.5 Gm Tube PO PRN PRN Hypoglycemia Protocol Dextrose/Sodium Chloride 1,000 mls @ 150 mls/hr 02/18/20 18:55 02/18/20 23:43 Dextrose 5% Sodium Chloride 0.45% IV CONT Infused .Q6H40M CATRACHITO Infusion Dextrose 1,000 mls @ 100 mls/hr 02/19/20 05:47 Dextrose 5% 1,000 Ml IVPB PRN PRN Hypoglycemia Protocol Insulin Aspart 4 - 8 units 02/19/20 08:00 Insulin Aspart (*Bkc) 100 Units/Ml SUB-Q TIDWM CATRACHITO Protocol Nicotine 1 patch 02/19/20 09:00 Nicotine (*Pbkc) 14 Mg Patch TRANSDERM QAM CATRACHITO Ondansetron HCl 4 mg 02/18/20 21:10 02/18/20 21:40 Ondansetron Inj 4 Mg/2 Ml Vial IV PUSH 4 mg Q4H PRN Administration Nausea And Vomiting Labs Labs: Laboratory Results - last 24 hr 02/18/20 02/18/20 02/18/20 16:27 17:24 17:24 WBC RBC Hgb Hct MCV MCH MCHC RDW Plt Count MPV Immature Gran % (Auto) Neut % (Auto) Lymph % (Auto) [place] % (Auto) Eos % (Auto) Baso % (Auto) Lymph # (Auto) [place] # (Auto) Eos # (Auto) Baso # (Auto) Abs Immat Gran (auto) Absolute Neuts (auto) Absolute Nucleated RBC Nucleated RBC % VBG pH 7.552 H* VBG pCO2 17.4 L* VBG pO2 46.3 H VBG HCO3 15.0 L O2 Delivery Device Room air O2 Liters/Min Not Reportable FiO2 21 Sodium Potassium Chloride Carbon Dioxide Anion Gap BUN Creatinine Estim Creat Clear Calc Estimated GFR Glucose POC Capillary Glucose 319 H Hemoglobin A1c Calcium Phosphorus 2.2 L Magnesium 1.9 Total Bilirubin AST ALT Alkaline Phosphatase Total Protein Albumin Lipase Beta-Hydroxybutyrate/Acetoacetate TSH (Reflex) Urine Color Urine Appearance Urine pH Ur Specific [place] Urine Protein Urine Glucose (UA) Urine Ketones Ur Blood (Man) Urine Nitrate Urine Bilirubin Urine Urobilinogen Leukocyte Elvia
[2020-02-19] MEDS: FAMOTIDINE 20 MG/2 ML VIAL IV PUSH (10:20)
[2020-02-19] MEDS: LACTATED RINGERS 1,000 ML 999 ML IV CONT (10:20)
[2020-02-19 10:28] LABS: Glucose Point of Care 146 (65-105)
--- NOTE | 2020-02-19 10:57 | WPDCNINT ---
Assessment and Plan Assessment and plan (1) DKA (diabetic ketoacidoses): Code(s): E11.10 - Type 2 diabetes mellitus with ketoacidosis without coma Status: Acute Assessment and Plan: patient presented with nausea, vomiting, abdominal pain. Has not been taking her insulin for the 3-4 days prior to admission as she was not Able to keep down liquids or solids. In the ED patient was found to be in DKA, IV fluids were given and patient was started on insulin infusion. - Additional fluids were given this morning, patient was transition to long-acting insulin and sliding scale insulin - hemoglobin A1c this admission is 11.3. - Looks like patient is noncompliant which has been her issue in the past also as she has been previously admitted with diabetic ketoacidosis multiple times in the ICU - will have clinical systems educator and director of corporate responsibility evaluate the patient (2) Nausea & vomiting: Code(s): R11.2 - Nausea with vomiting, unspecified Status: Acute Assessment and Plan: RESOLVED - likely due to DKA (3) Dehydration: Code(s): E86.0 - Dehydration Status: Acute Assessment and Plan: patient has been adequately resuscitated with fluids, additional IV fluid bolus was given this morning - urine output has been adequate, will continue to monitor (4) Tobacco dependence: Code(s): F17.200 - Nicotine dependence, unspecified, uncomplicated Status: Acute Assessment and Plan: consult and discussed with the patient regarding cessation of smoking - patient has a nicotine patch (5) Asthma: Qualifiers: Asthma severity: unspecified severity Asthma persistence: unspecified Asthma complication type: unspecified Qualified Code(s): J45.909 - Unspecified asthma, uncomplicated Code(s): J45.909 - Unspecified asthma, uncomplicated Status: Chronic Assessment and Plan: p.r.n. inhalers Additional Plan discussed with patient updated with her condition and plan of care. I did tell her that she has been off the insulin infusion now on Lantus and sliding scale insulin. Code status: Full code critical care time spent: 44 minutes Due to a high probability of clinically significant, life threatening deterioration, the patient required my highest level of preparedness to intervene emergently and I personally spent this critical care time directly and personally managing the patient. This critical care time included obtaining a history; examining the patient; pulse oximetry; ordering and review of studies; arranging urgent treatment with development of a management plan; evaluation of patient's response to treatment; frequent reassessment; and discussions with other providers. It was exclusive of separately billable procedures and treating other patients and teaching time. Please see Assessment and Plan section and the rest of the note for further information on patient assessment and treatment [employer] Supervisor Consult Note Consult date: 02/19/20 Time Seen: 07:09 Reason for consult: diabetes ketoacidosis, anion gap metabolic acidosis, hyperglycemia, elevated beta hydroxybutyrate HPI: Marianne Fofana is a 24 year old female with past medical history of type 1 insulin-dependent diabetes schizophrenia, seizure disorder, asthma presented the on 02/18/2020 complains of nausea, vomiting, abdominal pain x3 days. In the ED patient stated that not been taking her insulin for the last 3-4 days because she was having nausea and vomiting and was unable to keep anything down. Blood sugars in the ER with elevated, patient an anion gap metabolic acidosis of 25, elevated beta hydroxybutyrate, hyperglycemia. Patient was given IV fluid bolus, started on insulin infusion and admitted to the ICU for further management. Patient seen and examined this morning, has not been allowing blood draws, not Wanting to be examined by physicians or nurses as she states she sleepy. I did give her so
[2020-02-19 12:17] LABS: Glucose Point of Care 165 (65-105)
--- NOTE | 2020-02-19 14:15 | PC.NURSE ---
This patient, Marianne Fofana, was transferred to [facility] on 02/19/20 at 1415. Personal belongings sent with patient. Report given to HAMILTON Kothari. Appropriate documentation sent with patient.
--- NOTE | 2020-02-19 15:22 | PM.IMPN ---
Progress Note: A&P Assessment and Plan (1) DKA (diabetic ketoacidoses): Code(s): E11.10 - Type 2 diabetes mellitus with ketoacidosis without coma Status: Acute Assessment and Plan: The patient has been here multiple times for DKA. The patient is noncompliant. Her A1c is 11.3. Patient does not check her blood sugars are take her insulin on a regular basis. On many occasions I explained to the patient the affects of having uncontrolled diabetes. The patient remains noncompliant. She has spoken to a dietitian and associate professor of english in the past. I am not sure what affect if any will have 1 consulting the specialist again as the patient is noncompliant. The patient is on a insulin drip on the DKA protocol. Patient may take her home dose of long-acting insulin when she is off the drip. 02/19/20 15:22 patient is a 24-year-old female with history of type 1 diabetes patient presented emergency department with a complaint nausea and vomiting for last 3 days patient was unable to take anything p.o. was not able to use her insulin, upon arrival to emergency depart patient was found to have elevated blood sugar over 300, metabolic acidosis with a high anion gap and elevated hydroxybutyrate, in emergency department patient was started on IV bolus and infusion of insulin and transferred to ICU, in ICU patient was monitor and hydrated her electrolytes have improved anion gap is improved as well as metabolic acidosis, discussed with the intensive patient clinically stable and off the insulin drip, will transfer the patient out of ICU, patient still quite somnolent unable to provide detailed review of symptom but appears to be clinically stable, will continue long-acting insulin with sliding scale will have diabetic care educate her again and discussed with the patient to help her manage her diabetes. (2) Nausea and vomiting: Qualifiers: Vomiting Intractability: non-intractable Vomiting type: unspecified Qualified Code(s): R11.2 - Nausea with vomiting, unspecified Code(s): R11.2 - Nausea with vomiting, unspecified Status: Acute Assessment and Plan: Could be related to cyclic vomiting. The patient has not seen a GI specialist. I added Pepcid and she has Zofran will continue with her fluids per DKA protocol patient was given Haldol earlier which seem to help her. (3) Asthma: Qualifiers: Asthma severity: unspecified severity Asthma persistence: unspecified Asthma complication type: unspecified Qualified Code(s): J45.909 - Unspecified asthma, uncomplicated Code(s): J45.909 - Unspecified asthma, uncomplicated Status: Chronic Assessment and Plan: p.r.n. inhaler. (4) Tobacco dependence: Code(s): F17.200 - Nicotine dependence, unspecified, uncomplicated Status: Acute Assessment and Plan: Smoking cessation. And a nicotine patch Subjective Date/time seen: 02/19/20 15:22 patient is a 24-year-old female with history of type 1 diabetes patient presented emergency department with a complaint nausea or vomiting for last 3 days patient was unable to take anything p.o. was not able to use her insulin upon arrival to emergency depart patient was found to have elevated blood sugar over 3, metabolic acidosis with a high gap anion and elevated hydroxybutyrate, emergency department patient was started on IV bolus and infusion of insulin and transferred to ICU, in ICU patient was monitor and hydrated her electrolytes are improved anion gap is improved as well as metabolic acidosis, discussed with the intensive patient clinically stable and off the insulin drip, will transfer the patient out of ICU, patient still quite somnolent unable to provide detailed review of symptom but appears to be clinically stable, will continue long-acting insulin with sliding scale will have diabetic care educator again discussed with the patient to help her
[2020-02-19 17:30] LABS: Glucose Point of Care 277 (65-105)
[2020-02-19] MEDS: INSULIN ASPART (*BKC) 100 UNITS/ML SUB-Q (17:51)
[2020-02-20 00:12] LABS: Glucose Point of Care 279 (65-105)
--- NOTE | 2020-02-20 01:07 | PC.NURSE ---
Patient notified of risks of leaving AMA. Dr. Robertson notified. Follow up instructions given to patient. Patient signed AMA form.
--- NOTE | 2020-03-08 17:10 | DS_ITS ---
This report was moved to the correct visit, [id number], on March 12, 2020. Original report was signed by Dr. Bryce Smith on March 08, 2020 at 1712. DS: Admitting Diagnosis Admitting Diagnosis Admitting Diagnosis: Intractable nausea and vomiting, DS: Discharge Diagnosis Discharge Diagnosis (1) Nausea and vomiting: Qualifiers: Vomiting Intractability: non-intractable Vomiting type: unspecified Qualified Code(s): R11.2 - Nausea with vomiting, unspecified Code(s): R11.2 - Nausea with vomiting, unspecified Status: Acute Assessment and Plan: Resolved. Continue antiemetics PRN nausea. She tolerated CLD. Advance diet as tolerated. 01/05/20 14:14 Patient is a 24 year female with history of type 1 diabetes patient presented emergency department with a complaint right labial abscess patient was seen in ER had I and D, patient was seen by surgery service patient examined and it is superficial abscess recommended to continue present management no surgical intervention is needed, also complains of abdominal pain nausea and vomiting and unable to take her insulin resulting in elevated blood sugar and early sign of DKA however patient is being hydrated symptoms improved however patient is continue to complain abdominal pain nausea and vomiting to further evaluate patient had a ultrasound of abdomen is essentially normal, today patient again continued to complain of abdominal pain nausea and vomiting will add Reglan to her regimen patient is clinically stable will continue to hydrate the patient, antiemetic and pain medication, continue to monitor BMP and further recommendations to follow (2) Skin abscess: Qualifiers: Site of cutaneous abscess: trunk Site of cutaneous abscess of trunk: abdominal wall Qualified Code(s): L02.211 - Cutaneous abscess of abdominal wall Code(s): L02.91 - Cutaneous abscess, unspecified Status: Acute Assessment and Plan: Abscess still present on my exam today (approx 2x2cm) despite prior I&D in ED. I have asked HI TEACHER to see her. Add IV vancomycin and continue IV cefazolin. Await further HI TEACHER input which is greatly appreciated. (3) Type 1 diabetes mellitus: Qualifiers: Diabetes mellitus complication status: with hyperglycemia Qualified Code(s): E10.65 - Type 1 diabetes mellitus with hyperglycemia Code(s): E10.9 - Type 1 diabetes mellitus without complications Status: Acute Assessment and Plan: Hyperglycemia present without DKA. Pt has a hx of nonadherence to medical therapy. Check A1c. Most recent A1c 10/31/19 11.6. She did not receive lantus last night. Administer 10 units this AM and 20 units HS. Resume regular 30 units HS tomorrow. Add mealtime insulin of 7 units. Continue ACHS glucose monitoring, sliding scale insulin, and hypoglycemia protocol. (4) Diabetes mellitus: Code(s): E11.9 - Type 2 diabetes mellitus without complications Status: Acute Assessment and Plan: Hypergw/ hyperglycemia. Accuchecks, SSI coverage, hypoglycemia protocol. (5) Normocytic anemia: Code(s): D64.9 - Anemia, unspecified Status: Chronic Assessment and Plan: Hb 10.5 and Hct 33.7 at presentation to ED. Microcytic, likely MICHEAL. Check iron studies, vitamin B12, folate. She has no evidence of acute blood loss. Continue to monitor and transfuse PRN to maintain Hb >7. (6) Asthma: Qualifiers: Asthma severity: unspecified severity Asthma persistence: unspecified Asthma complication type: unspecified Qualified Code(s): J45.909 - Unspecified asthma, uncomplicated Code(s): J45.909 - Unspecified asthma, uncomplicated Status: Chronic Assessment and Plan: Continue nebulized bronchodilators
== END 2020-02-20 01:11 | disposition left against medical advice (07) ==
LOC: ANHED 19:05 → ANHICU 19:55 → ANH3MED 02-19 14:40
PROVIDERS: Nurse Practitioner; Admitting Provider Internal Medicine; Emergency Provider Emergency Medicine; Visit Provider Internal Medicine
DX: E10.10 Type 1 diabetes mellitus with ketoacidosis without coma (principal); J45.909 Unspecified asthma, uncomplicated; E86.0 Dehydration; F17.210 Nicotine dependence, cigarettes, uncomplicated; F12.90 Cannabis use, unspecified, uncomplicated; Z91.14 Patient's other noncompliance with medication regimen; Z79.4 Long term (current) use of insulin
CPT/HCPCS: 36415; 80048; 80053; 80307; 81001; 81025; 82010; 82803; 82948; 83036; 83690; 83735; 84100; 84443; 85025; 96361; 96365; 96366; 96368; 96375; 96376; 99291; G0378; G0379; J1630; J1815; J2405; J3480; J7030; J7120

== ENCOUNTER 2020-05-05 18:21 | Emergency (ER) | payer OTHER, SELFPAY ==
[2020-05-05 18:40] VITALS: BP 144/95; PULSE 107; RESP 20; TEMP 36.4; O2SAT 100
[2020-05-05 20:08] LABS: Glucose Point of Care 330 (65-105)
--- NOTE | 2020-05-05 20:08 | PC.NURSE ---
BS 330
--- NOTE | 2020-05-05 20:08 | PC.NURSE ---
Amanda VILLASENOR in room to attempt U/S IV Access at this time.
[2020-05-05 20:21] LABS: Add Urine Microscopic? YES; Appearance Urine Clear (Clear); Bacteria Urine Trace /hpf; Bilirubin Urine Negative (Negative); Blood Urine Negative (Negative); Color Urine Yellow (Yellow); Glucose Urine UA 3+ mg/dL (Negative); Ketones Urine 2+ mg/dL (Negative); Leukocyte Esterase Ur Trace LEU/UL (Negative); Mucus Urine Rare /lpf; Nitrate Urine Negative (Negative); Protein Urine 2+ mg/dL (Negative); Squamous Epithelial Cell Urine Many /hpf (Few); Urobilinogen Urine Negative mg/dL (<2.0); WBC Urine 31-50 /hpf
[2020-05-05 20:23] LABS: Specific Grav Ur 1.037 (1.001-1.035)
--- NOTE | 2020-05-05 20:37 | ED.NAVMDI ---
HPI - Nausea/Vomiting/Diarrhea General Chief complaint: Nausea/Vomiting/Diarrhea Stated complaint: Vomiting Time Seen by Provider: 05/05/20 20:07 Source: patient Mode of arrival: ambulatory Limitations: no limitations History of Present Illness HPI Narrative: A 24-year-old female presents to the emergency department today with complaints of nausea and vomiting. Patient is a diabetic and states that her sugars have been more well controlled in the ever have been before but because she has been nauseous and vomiting she has not been taking care of herself. Patient states that she feels that she may be going into DKA. She does note that she feels dehydrated. Related Data Allergies Allergy/AdvReac Type Severity Reaction Status Date / Time banana Allergy Unknown makes Verified 05/05/20 20:12 mouth swell, couldn't breath Review of Systems Review of Systems: Narrative: CONSTITUTIONAL: Denies fever, chills, or sweats. EYES: Denies visual changes, redness, or discharge. ENT: Denies rhinorrhea, congestion, sore throat, or otalgia. CARDIOVASCULAR: Denies chest pain, palpitations, or edema. RESPIRATORY: Denies cough or dyspnea. GASTROINTESTINAL: Denies abdominal pain or diarrhea. Endorses nausea and vomiting GENITOURINARY: Denies dysuria or hematuria. SKIN: Denies rash or itching. MUSCULOSKELETAL: Denies back pain, joint pain, or myalgia. NEUROLOGIC: Denies headache, numbness, dizziness, or weakness. PSYCHIATRIC: Denies anxiety or depression. [facility] Past Medical History Medical History Asthma Diabetes mellitus Schizophrenia Seizure disorder Surgical History Surgical History History of incision and drainage abdominal abscess Hx of cholecystectomy Family History Family History Grandparent Diabetes mellitus Asthma Sibling Diabetes mellitus Mother Acute myocardial infarction Social History Social History Social History: the patient has 1 son. She a durable power civil litigation attorney that is her aunt. Her aunt basically raises her son. She lives with her aunt. She is single. She is a full code. She uses marijuana and smokes cigarettes occasionally has alcohol. She works as and adult entertainer. Smoking packs per day: 0.5 Smoking cigarettes per day: 10.0 Years smoked: 10 Smoking pack-years: 5.00 Smoking status: Current every day smoker Tobacco type: cigarettes Second hand tobacco smoke exposure: Yes Alcohol intake: current Drinks per week: 4 Substance use: never Substance use type: does not use Other substance usage details: less than one drink a week Last use: 01/31/20 Gender identity (if verbalized by the patient): Female Spiritual care concerns: No Exam Narrative: Exam Narrative: GENERAL: Well-appearing, well-nourished, and in no acute distress. HEAD: Normocephalic, atraumatic. EYES: PERRLA and EOMI. ENT: Nares clear, no rhinorrhea or epistaxis. Mucous membranes moist. Oropharynx without tonsillar hypertrophy exudate or other lesions. Bilateral TMs pearly bishop nonbulging NECK: Supple. No adenopathy or masses. No carotid bruits or JVD CHEST: Clear to auscultation. No respiratory distress. No wheezes rales or rhonchi HEART: Regular rate and rhythm. No murmur heard. Normal peripheral pulses. ABDOMEN: Soft, nontender, nondistended, normal active bowel sounds. EXTREMITIES: Normal range of motion. No edema. SKIN: Warm, dry, no rash. NEURO: No focal deficits. Alert and oriented x3. PSYCH: Normal mood and affect. Course Reevaluation(s) Reevaluation #1: Patient was reevaluated after p.o. challenge. She is able to keep it down but states that she does still feel somewhat nauseated. We will give her a second dose of Zofran before discharge and then a prescripti
[2020-05-05 21:06] LABS: Basophils Percent Auto 0.3 % (0.2-1.2); Eosinophils Percent Auto 0.1 % (0-4.4); Hematocrit 31.5 % (37.0-47.0); Hemoglobin 9.8 g/dL (12.0-15.0); Immature Granulocyte Absolute 0.02 K/mm3 (0.00-0.031); Immature Granulocyte Percent A 0.2 % (0-0.5); Lymphocytes Absolute Auto 2.38 K/mm3 (0.9-3.2); Lymphocytes Percent Auto 19.7 % (18.3-44.2); Mean Corpuscular HGB Conc 31.1 g/dl (32-36); Mean Corpuscular Hemoglobin 22.2 pg (26-34); Mean Corpuscular Volume 71.4 fl (80-100); Mean Platelet Volume 10.4 fl (7.4-10.4); Monocytes Absolute Auto 1.2 K/mm3 (0.1-0.6); Monocytes Percent Auto 9.7 % (2.6-8.5); Neutrophils Absolute Auto 8.5 K/mm3 (1.3-6.7); Platelet Count Result 439 k/mm3 (150-375); Red Blood Count 4.41 M/mm3 (4.2-5.4); Red Cell Distribution Width 18.1 % (11.5-14.5); White Blood Count 12.1 K/mm3 (4.5-10.0)
[2020-05-05] MEDS: LACTATED RINGERS 1,000 ML 999 ML IV CONT ×2 (21:09→21:13)
[2020-05-05] MEDS: ONDANSETRON INJ 4 MG/2 ML VIAL IV PUSH ×3 (21:09→22:59)
[2020-05-05 21:10] VITALS: BP 106/68; PULSE 91; RESP 22; O2SAT 98
[2020-05-05 21:18] LABS: Alanine Aminotransferase 10 U/L (4-35); Albumin Level 4.1 g/dL (3.5-5.1); Alkaline Phosphatase 88 U/L (38-126); Anion Gap 8 mmol/L (8-16); Aspartate Amino Transferase 18 U/L (14-36); Bilirubin,Total 0.6 mg/dL (0.2-1.3); Blood Urea Nitrogen 12 mg/dL (7-17); Calcium 8.7 mg/dL (8.4-10.2); Carbon Dioxide 28 mmol/L (22-30); Chloride 96 mmol/L (98-107); Estimated CRCL calculation 145 ml/min; Estimated Glomerular Filt Rate > 60; Glucose 307 mg/dL (65-105); Lipase 189 U/L (23-300); Potassium 3.1 mmol/L (3.4-5.0); Sodium 132 mmol/L (137-145)
[2020-05-05 22:16] VITALS: BP 108/63; PULSE 63; RESP 20; O2SAT 98
[2020-05-05] MEDS: POTASSIUM CHLORIDE 20 MEQ TABLET 40 MEQ PO (22:32)
[2020-05-05 23:00] VITALS: BP 128/88; PULSE 87; RESP 14; O2SAT 99
== END 2020-05-05 23:01 | disposition home or self-care (01) ==
PROVIDERS: Emergency Provider Emergency Medicine
DX: E11.65 Type 2 diabetes mellitus with hyperglycemia (principal); R11.2 Nausea with vomiting, unspecified; J45.909 Unspecified asthma, uncomplicated; G40.909 Epilepsy, unspecified, not intractable, without status epilepticus; F17.210 Nicotine dependence, cigarettes, uncomplicated; Z79.4 Long term (current) use of insulin
CPT/HCPCS: 36415; 80053; 81001; 81025; 82948; 83690; 85025; 87086; 87088; 96361; 96374; 96376; 99284; A9270; J2405; J7120

== ENCOUNTER 2022-01-29 14:23 | Emergency (ER) | payer OTHER, SELFPAY ==
[2022-01-29 14:31] VITALS: BP 140/83; PULSE 99; RESP 16; TEMP 36.8; O2SAT 100
[2022-01-29 14:43] LABS: Glucose Point of Care 413 mg/dl (65-105)
--- NOTE | 2022-01-29 14:44 | PC.NURSE ---
BG was 413 at 1442
--- NOTE | 2022-01-29 14:59 | ED.GENADULT ---
HPI - General Adult General Chief complaint: Unspecified Stated complaint: STD check, my diabetes is acting up Time Seen by Provider: 01/29/22 14:38 Source: patient Mode of arrival: ambulatory Limitations: no limitations History of Present Illness HPI narrative: This is a 26-year-old female that presents to the emergency department for an STD check. Reports she has had irritation and abnormal discharge. Also reports dysuria. Reports she has history of diabetes and has not taken her insulin in several months. Denies fever, abdominal pain, flank pain, or vomiting. Related Data Allergies Allergy/AdvReac Type Severity Reaction Status Date / Time banana Allergy Unknown makes Verified 01/29/22 14:34 mouth swell, couldn't breath Review of Systems Review of Systems: CONSTITUTIONAL: Denies fever GASTROINTESTINAL: Denies abdominal pain, nausea, vomiting GENITOURINARY: Reports dysuria. Denies hematuria. SKIN: Reports itching. All systems reviewed & are unremarkable except as noted in HPI and below PMFSH Past Medical History Medical History Asthma Diabetes mellitus Schizophrenia Seizure disorder Surgical History Surgical History History of incision and drainage abdominal abscess Hx of cholecystectomy Family History Family History Grandparent Diabetes mellitus Asthma Sibling Diabetes mellitus Mother Acute myocardial infarction Social History Social History Social History: the patient has 1 son. She a durable power defense attorney that is her aunt. Her aunt basically raises her son. She lives with her aunt. She is single. She is a full code. She uses marijuana and smokes cigarettes occasionally has alcohol. She works as and adult entertainer. Smoking packs per day: 0.5 Smoking cigarettes per day: 10.0 Years smoked: 10 Smoking pack-years: 5.00 Smoking status: Current every day smoker Tobacco type: cigarettes Second hand tobacco smoke exposure: Yes Alcohol intake: current Drinks per week: 4 Substance use: never Substance use type: does not use Other substance usage details: less than one drink a week Last use: 01/31/20 Gender identity (if verbalized by the patient): Female Sexual Orientation (if Verbalized by the Patient): Straight or Heterosexual Spiritual care concerns: No Exam Narrative: GENERAL: Well-appearing, well-nourished, and in no acute distress. HEAD: Normocephalic, atraumatic. EYES: EOMI. CHEST: Clear to auscultation. No respiratory distress. No wheezes rales or rhonchi HEART: Regular rate and rhythm. No murmur heard. Normal peripheral pulses. ABDOMEN: Soft, nontender, nondistended, normal active bowel sounds. EXTREMITIES: Normal range of motion. No edema. SKIN: Warm, dry, no rash. NEURO: No focal deficits. Alert and oriented x3. PSYCH: Normal mood and affect PELVIC: Erythema/irritation diffusely to the vulvovaginal area with thick white discharge noted. Cervix appears normal, small amount of white cervical discharge noted Course Vital Signs Vital signs: Vital Signs Temperature 98.2 F 01/29/22 14:31 Pulse Rate 99 01/29/22 14:31 Respiratory Rate 16 01/29/22 14:31 Blood Pressure 140/83 01/29/22 14:31 Pulse Oximetry 100 01/29/22 14:31 Temperature 98.2 F 01/29/22 14:31 Pulse Rate 99 01/29/22 14:31 Respiratory Rate 16 01/29/22 14:31 Blood Pressure 140/83 01/29/22 14:31 Pulse Oximetry 100 01/29/22 14:31 Medical Decision Making MDM Narrative Medical decision making narrative: Patient presents to the emergency department for STD check. Also reporting she has not taken her insulin in several months. She is afebrile and nontoxic-appearing. Her vitals are stable. Pelvic exam is consistent wi
[2022-01-29 15:20] LABS: Add Urine Microscopic? YES; Appearance Urine Cloudy (Clear); Bacteria Urine Trace /hpf; Bilirubin Urine Negative (Negative); Blood Urine 1+ (Negative); Color Urine Yellow (Yellow); Glucose Urine UA 3+ mg/dL (Negative); Ketones Urine 2+ mg/dL (Negative); Leukocyte Esterase Ur 2+ LEU/UL (Negative); Mucus Urine Rare /lpf; Nitrate Urine Negative (Negative); Protein Urine 1+ mg/dL (Negative); Squamous Epithelial Cell Urine Occasional /hpf (Few); Urobilinogen Urine Negative mg/dL (<2.0); WBC Urine 51-75 /hpf
--- NOTE | 2022-01-29 15:20 | PC.NURSE ---
Attempted IV without success
[2022-01-29 15:21] LABS: Specific Grav Ur 1.037 (1.001-1.035)
== END 2022-01-29 17:22 | disposition left against medical advice (07) ==
PROVIDERS: Physician Assistant; Emergency Provider Emergency Medicine
DX: B37.31 Acute candidiasis of vulva and vagina (principal); N30.00 Acute cystitis without hematuria; E11.65 Type 2 diabetes mellitus with hyperglycemia; J45.909 Unspecified asthma, uncomplicated; G40.909 Epilepsy, unspecified, not intractable, without status epilepticus; T38.3X6A Underdosing of insulin and oral hypoglycemic [antidiabetic] drugs, initial encounter; Z91.128 Patient's intentional underdosing of medication regimen for other reason; F17.210 Nicotine dependence, cigarettes, uncomplicated; Z79.4 Long term (current) use of insulin
CPT/HCPCS: 81001; 81025; 82948; 87070; 87077; 87086; 87186; 87491; 87591; 87808; 99284

== ENCOUNTER 2022-02-08 13:11 | Emergency (ER) | payer OTHER, SELFPAY ==
[2022-02-08 13:48] VITALS: BP 148/91; PULSE 102; RESP 16; TEMP 36.4; O2SAT 99
[2022-02-08 13:54] LABS: Glucose Point of Care > 500 mg/dl (65-105)
[2022-02-08 14:34] LABS: Basophils Percent Auto 0.3 % (0.2-1.2); Eosinophils Absolute Auto 0.1 K/mm3 (0-0.3); Eosinophils Percent Auto 0.8 % (0-4.4); Hematocrit 35.3 % (37.0-47.0); Immature Granulocyte Absolute 0.03 K/mm3 (0.00-0.031); Immature Granulocyte Percent A 0.4 % (0-0.5); Lymphocytes Absolute Auto 1.34 K/mm3 (0.9-3.2); Lymphocytes Percent Auto 18.2 % (18.3-44.2); Mean Corpuscular HGB Conc 31.2 g/dl (32-36); Mean Corpuscular Hemoglobin 25.6 pg (26-34); Mean Corpuscular Volume 82.3 fl (80-100); Mean Platelet Volume 11.7 fl (7.4-10.4); Monocytes Absolute Auto 0.5 K/mm3 (0.1-0.6); Monocytes Percent Auto 7.1 % (2.6-8.5); Neutrophils Absolute Auto 5.4 K/mm3 (1.3-6.7); Neutrophils Percent Auto 73.2 % (45.5-73.1); Platelet Count Result 237 k/mm3 (150-375); Red Blood Count 4.29 M/mm3 (4.2-5.4); Red Cell Distribution Width 16.4 % (11.5-14.5); White Blood Count 7.4 K/mm3 (4.5-10.0)
[2022-02-08 14:42] LABS: Add Urine Microscopic? YES; Appearance Urine Cloudy (Clear); Bacteria Urine Trace /hpf; Bilirubin Urine Negative (Negative); Blood Urine 1+ (Negative); Color Urine Straw (Yellow); Glucose Urine UA 3+ mg/dL (Negative); Ketones Urine Negative (Negative); Leukocyte Esterase Ur 2+ LEU/UL (Negative); Nitrate Urine Positive (Negative); Protein Urine Negative (Negative); RBC Urine 0-2 /hpf (0-2); Specific Grav Ur 1.006 (1.001-1.035); Squamous Epithelial Cell Urine Few /hpf (Few); Urobilinogen Urine Negative mg/dL (<2.0); WBC Clumps Urine Present /HPF; WBC Urine >75 /hpf
[2022-02-08 14:48] LABS: Albumin Level 3.8 g/dL (3.5-5.1); Alkaline Phosphatase 82 U/L (38-126); Anion Gap 12 mmol/L (8-16); Aspartate Amino Transferase 22 U/L (14-36); Bilirubin,Total 0.4 mg/dL (0.2-1.3); Blood Urea Nitrogen 8 mg/dL (7-17); Calcium 8.3 mg/dL (8.4-10.2); Carbon Dioxide 18 mmol/L (22-30); Chloride 97 mmol/L (98-107); Estimated CRCL calculation 115 ml/min; Estimated Glomerular Filt Rate > 60; Magnesium 1.7 mg/dL (1.6-2.3); Phosphorus 3.7 mg/dL (2.5-4.5); Potassium 3.7 mmol/L (3.4-5.0); Sodium 127 mmol/L (137-145)
[2022-02-08 14:50] LABS: Beta-Hydroxybutyrate/Acetoacetate 0.11 mmol/L (0.02-0.27)
[2022-02-08 14:55] LABS: Alanine Aminotransferase 32 U/L (6-35); Glucose 652 mg/dL (65-110)
[2022-02-08] MEDS: CEPHALEXIN 500 MG CAPSULE PO (15:14)
[2022-02-08] MEDS: SODIUM CHLORIDE 0.9% IV 1,000 ML 999 ML IV CONT ×4 (15:15→16:44)
--- NOTE | 2022-02-08 15:41 | ED.RECABL ---
HPI - Recheck/Abnormal Lab/Rx General Chief Complaint: Recheck/Abnormal Lab/Rx Stated Complaint: high blood sugar Time Seen by Provider: 02/08/22 14:18 History of Present Illness HPI narrative: This is a 26-year-old female with type 1 diabetes, returning the emergency department with concerns for elevated blood sugar. Patient states she has been out of her insulin due to not having insurance. She states she was seen here approximately a week ago, diagnosed with urinary tract infection but could not fill her medications. She complains of some nausea but denies vomiting, diarrhea, bleeding from any source, chest pain or loss of consciousness. Related Data Allergies Allergy/AdvReac Type Severity Reaction Status Date / Time banana Allergy Unknown makes Verified 01/29/22 14:34 mouth swell, couldn't breath Review of Systems Review of Systems: CONSTITUTIONAL: Denies fever, chills, or sweats. EYES: Denies visual changes, redness, or discharge. ENT: Denies rhinorrhea, congestion, sore throat, or otalgia. CARDIOVASCULAR: Denies chest pain, palpitations, or edema. RESPIRATORY: Denies cough or dyspnea. GASTROINTESTINAL: Nausea denies abdominal pain, vomiting, or diarrhea. GENITOURINARY: Dysuria denies hematuria. SKIN: Denies rash or itching. MUSCULOSKELETAL: Denies back pain, joint pain, or myalgia. NEUROLOGIC: Denies headache, numbness, dizziness, or weakness. PSYCHIATRIC: Denies anxiety or depression. [facility] Past Medical History Medical History Asthma Diabetes mellitus Schizophrenia Seizure disorder Surgical History Surgical History History of incision and drainage abdominal abscess Hx of cholecystectomy Family History Family History Grandparent Diabetes mellitus Asthma Sibling Diabetes mellitus Mother Acute myocardial infarction Social History Social History Social History: the patient has 1 son. 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 Her aunt basically raises her son. She lives with her aunt. She is single. She is a full code. She uses marijuana and smokes cigarettes occasionally has alcohol. She works as and adult entertainer. Smoking packs per day: 0.5 Smoking cigarettes per day: 10.0 Years smoked: 10 Smoking pack-years: 5.00 Smoking status: Current every day smoker Tobacco type: cigarettes Second hand tobacco smoke exposure: Yes Alcohol intake: current Drinks per week: 4 Substance use: never Substance use type: does not use Other substance usage details: less than one drink a week Last use: 01/31/20 Gender identity (if verbalized by the patient): Female Sexual Orientation (if Verbalized by the Patient): Straight or Heterosexual Spiritual care concerns: No Exam Narrative: GENERAL: Well-appearing, well-nourished, and in no acute distress. HEAD: Normocephalic, atraumatic. EYES: PERRLA and EOMI. ENT: Nares clear, no rhinorrhea or epistaxis. Mucous membranes moist. Oropharynx without tonsillar hypertrophy exudate or other lesions. NECK: Supple. No adenopathy or masses. No carotid bruits or JVD CHEST: Clear to auscultation. No respiratory distress. No wheezes rales or rhonchi HEART: Regular rate and rhythm. No murmur heard. Normal peripheral pulses. ABDOMEN: Soft, nontender, nondistended, normal active bowel sounds. EXTREMITIES: Normal range of motion. No edema. SKIN: Warm, dry, no rash. NEURO: No focal deficits. Alert and oriented x3. PSYCH: Normal mood and affect. Course Course Emergency Course: 18:10 - Chemistries show hyperglycemia to 652. Measured anion gap of 12, bicarb 18, calculated gap 21, potassium 3.7. Patient given 3 L of fluid with plans for repeat BMP as well as a dose of IV antibiotics. However after 3 lab draw a
--- NOTE | 2022-02-08 18:19 | PC.NURSE ---
RN attempting to draw patients blood. pt. repeatedly pulling arm back from RN. yelling at RN saying it hurts. RN educated pt. has a lot of scar tissue that can cause increased pain. pt. remained uncooperative during blood draw, repeatedly pulling arm back and bouncing up and down on the bed. RN stopped blood draw.
== END 2022-02-08 18:30 | disposition left against medical advice (07) ==
PROVIDERS: Emergency Provider Preventive Medicine Aerospace Medicine
DX: E10.65 Type 1 diabetes mellitus with hyperglycemia (principal); N39.0 Urinary tract infection, site not specified; T38.3X6A Underdosing of insulin and oral hypoglycemic [antidiabetic] drugs, initial encounter; Z91.120 Patient's intentional underdosing of medication regimen due to financial hardship; J45.909 Unspecified asthma, uncomplicated; G40.909 Epilepsy, unspecified, not intractable, without status epilepticus; F17.210 Nicotine dependence, cigarettes, uncomplicated
CPT/HCPCS: 36415; 80053; 81001; 81025; 82010; 82948; 83735; 84100; 85025; 87077; 87086; 87088; 87186; 96360; 96361; 99283; A9270; J7030

== ENCOUNTER 2022-11-26 11:26 | Emergency (ER) | payer OTHER, SELFPAY ==
[2022-11-26 11:27] VITALS: BP 178/125; PULSE 97; RESP 22; TEMP 37; O2SAT 100
[2022-11-26 11:49] LABS: Glucose Point of Care 310 mg/dl (65-105)
--- NOTE | 2022-11-26 12:01 | ED.ABDPAIN ---
HPI - Abdominal Pain General Chief Complaint: Abdominal Pain Stated Complaint: N/V, abd pain Time Seen by Provider: 11/26/22 11:38 Source: patient Mode of arrival: ambulatory Limitations: no limitations History of Present Illness HPI narrative: This is a 27 year old female that presents to the ER for abdominal pain present since yesterday. Associated with nausea and vomiting. Reports history of DM. She was evaluated at another ED last night for the same symptoms and was discharged. Denies fever, dysuria, hematuria, or diarrhea. Related Data Allergies Allergy/AdvReac Type Severity Reaction Status Date / Time banana Allergy Unknown makes Verified 01/29/22 14:34 mouth swell, couldn't breath Review of Systems Review of Systems: CONSTITUTIONAL: Denies fever GASTROINTESTINAL: Reports abdominal pain, nausea, vomiting. Denies diarrhea. GENITOURINARY: Denies dysuria or hematuria. All systems reviewed & are unremarkable except as noted in HPI and below PMFSH Past Medical History Medical History Asthma Diabetes mellitus Schizophrenia Seizure disorder Surgical History Surgical History History of incision and drainage abdominal abscess Hx of cholecystectomy Family History Family History Grandparent Diabetes mellitus Asthma Sibling Diabetes mellitus Mother Acute myocardial infarction Social History Social History Social History: the patient has 1 son. 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 Her aunt basically raises her son. She lives with her aunt. She is single. She is a full code. She uses marijuana and smokes cigarettes occasionally has alcohol. She works as and adult entertainer. Smoking packs per day: 0.5 Smoking cigarettes per day: 10.0 Years smoked: 10 Smoking pack-years: 5.00 Smoking status: Current every day smoker Tobacco type: cigarettes Second hand tobacco smoke exposure: Yes Alcohol intake: current Drinks per week: 4 Substance use: never Substance use type: does not use Other substance usage details: less than one drink a week Last use: 01/31/20 Gender identity (if verbalized by the patient): Female Sexual Orientation (if Verbalized by the Patient): Straight or Heterosexual Spiritual care concerns: No Exam Narrative: GENERAL: Well-appearing, well-nourished, and in no acute distress. HEAD: Normocephalic, atraumatic. EYES: EOMI. CHEST: Clear to auscultation. No respiratory distress. No wheezes rales or rhonchi HEART: Regular rate and rhythm. No murmur heard. Normal peripheral pulses. ABDOMEN: Soft, nondistended, normal active bowel sounds. Tender to palpation in the epigastrium, without guarding EXTREMITIES: Normal range of motion. No edema. SKIN: Warm, dry, no rash. NEURO: No focal deficits. Alert and oriented x3. PSYCH: Normal mood and affect Course Course Emergency Course: Patient was updated on work-up. She is tolerating p.o. intake and reports feeling much better Vital Signs Vital signs: Vital Signs Temperature 98.6 F 11/26/22 11:27 Pulse Rate 97 11/26/22 11:27 Respiratory Rate 22 H 11/26/22 11:27 Blood Pressure 178/125 H 11/26/22 11:27 Pulse Oximetry 100 11/26/22 11:27 Oxygen Delivery Room Air 11/26/22 11:27 Temperature 98.6 F 11/26/22 11:27 Pulse Rate 97 11/26/22 11:27 Respiratory Rate 22 H 11/26/22 11:27 Blood Pressure 178/125 H 11/26/22 11:27 Pulse Oximetry 100 11/26/22 11:27 Oxygen Delivery Room Air 11/26/22 11:27 MDM - Abdominal Pain MDM Narrative Medical decision making narrative: Patient presents to the emergency department for nausea and vomiting. Ongoing since yesterday. She was evaluated at another facility for this and had a CT scan that
--- NOTE | 2022-11-26 12:32 | PC.NURSE ---
Unable to establish IV access on pt. Pt is getting out of bed and going to restroom and drinking from sink. Pt was advised to remain NPO pt non-complaint.
[2022-11-26] MEDS: ONDANSETRON HCL ODT 4 MG TABLET PO (13:32)
--- NOTE | 2022-11-26 13:34 | PC.NURSE ---
Pt declined lab draw for blood. Pt now states she will allow staff to attempt to draw blood.
[2022-11-26] MEDS: SODIUM CHLORIDE 0.9% IV 1,000 ML 999 ML IV CONT (13:57)
[2022-11-26] MEDS: diphenhydrAMINE HCl INJ 50 MG/ML VIAL 25 MG IV PUSH (13:57)
[2022-11-26] MEDS: METOCLOPRAMIDE HCL INJ 10 MG/2 ML VIAL IV PUSH (13:57)
[2022-11-26 14:02] LABS: Basophils Percent Auto 0.2 % (0.2-1.2); Eosinophils Percent Auto 0.1 % (0-4.4); Hematocrit 30.5 % (37.0-47.0); Immature Granulocyte Absolute 0.05 K/mm3 (0.00-0.031); Immature Granulocyte Percent A 0.4 % (0-0.5); Lymphocytes Absolute Auto 1.35 K/mm3 (0.9-3.2); Lymphocytes Percent Auto 10.9 % (18.3-44.2); Mean Corpuscular HGB Conc 32.8 g/dl (32-36); Mean Corpuscular Hemoglobin 25.8 pg (26-34); Mean Corpuscular Volume 78.8 fl (80-100); Mean Platelet Volume 10.9 fl (7.4-10.4); Monocytes Absolute Auto 1.2 K/mm3 (0.1-0.6); Monocytes Percent Auto 9.3 % (2.6-8.5); Neutrophils Absolute Auto 9.8 K/mm3 (1.3-6.7); Neutrophils Percent Auto 79.1 % (45.5-73.1); Platelet Count Result 332 k/mm3 (150-375); Red Blood Count 3.87 M/mm3 (4.2-5.4); Red Cell Distribution Width 15.7 % (11.5-14.5); White Blood Count 12.4 K/mm3 (4.5-10.0)
[2022-11-26 14:12] LABS: Alanine Aminotransferase 22 U/L (6-35); Albumin Level 3.7 g/dL (3.5-5.1); Alkaline Phosphatase 82 U/L (38-126); Anion Gap 9 mmol/L (8-16); Aspartate Amino Transferase 38 U/L (14-36); Bilirubin,Total 0.6 mg/dL (0.2-1.3); Blood Urea Nitrogen 8 mg/dL (7-17); Calcium 8.2 mg/dL (8.4-10.2); Carbon Dioxide 24 mmol/L (22-30); Chloride 92 mmol/L (98-107); Estimated CRCL calculation 149 ml/min; Estimated Glomerular Filt Rate > 60; Glucose 287 mg/dL (65-110); Magnesium 1.5 mg/dL (1.6-2.3); Phosphorus 2.8 mg/dL (2.5-4.5); Potassium 3.2 mmol/L (3.4-5.0); Sodium 125 mmol/L (137-145)
[2022-11-26 14:14] LABS: Lactic Acid Reflex 2.6 mmol/L (0.7-2.0)
[2022-11-26 14:17] LABS: Beta-Hydroxybutyrate/Acetoacetate 1.05 mmol/L (0.02-0.27)
[2022-11-26 14:22] LABS: Appearance Urine Cloudy (Clear); Bacteria Urine 2+ /hpf; Bilirubin Urine Negative (Negative); Blood Urine 2+ (Negative); Color Urine Yellow (Yellow); Glucose Urine UA 3+ mg/dL (Negative); Ketones Urine 3+ mg/dL (Negative); Leukocyte Esterase Ur Negative LEU/UL (Negative); Need Manual Microscopic Reviewed; Nitrate Urine Negative (Negative); Non Pathogenic Casts 0-2; Protein Urine 3+ mg/dL (Negative); Squamous Epithelial Cell Urine Many /hpf (Few); Urobilinogen Urine 0.2 mg/dL (<2.0); pH Urine 7.5 (5.0-9.0)
[2022-11-26 14:23] LABS: Add Urine Microscopic? YES; Specific Grav Ur 1.036 (1.001-1.035)
[2022-11-26 14:50] LABS: Lipase 64 U/L (23-300)
[2022-11-26] MEDS: POTASSIUM CHLORIDE INJ 40 MEQ in SODIUM CHLORIDE 0.9% IV 500 ML 130 MEQ IVPB (15:02)
--- NOTE | 2022-11-26 15:03 | PC.NURSE ---
Pt continues to take off bp cuff and monitor. Pt advised to keep equipment on so she can be monitored.
[2022-11-26 16:42] LABS: Pregnancy On Board Control Positive; Urine Pregnancy Test Negative
[2022-11-26 16:59] LABS: Reflex Lactic Acid Yes or No Add Lactic
[2022-11-26] MEDS: KETOROLAC 15 MG/ML VIAL (*BKC) IV PUSH (17:07)
[2022-11-26 18:30] LABS: Lactic Acid 2.6 mmol/L (0.7-2.0)
[2022-11-26] MEDS: MAGNESIUM SULF 2 GM/WATER 50ML 2 GM/50 ML BAG IVPB (19:02)
[2022-11-26 19:46] VITALS: BP 144/90; PULSE 78; RESP 18; O2SAT 100
== END 2022-11-26 19:50 | disposition home or self-care (01) ==
PROVIDERS: Emergency Provider Physician Assistant
DX: E87.6 Hypokalemia (principal); R11.2 Nausea with vomiting, unspecified; J45.909 Unspecified asthma, uncomplicated; E11.9 Type 2 diabetes mellitus without complications; F17.210 Nicotine dependence, cigarettes, uncomplicated; Z90.49 Acquired absence of other specified parts of digestive tract; Z79.4 Long term (current) use of insulin
CPT/HCPCS: 36415; 80053; 81001; 81025; 82010; 82948; 83605; 83690; 83735; 84100; 85025; 87077; 87086; 87088; 96361; 96365; 96367; 96375; 99284; A9270; J1200; J1885; J2765; J3475; J3480; J7030; J7040